=== PATIENT | female | born 1935 | race Caucasian/White ===

== ENCOUNTER → 2019-04-14 | Outpatient (CLI) | payer MEDICARE, SELFPAY | PROVIDERS: PCP Internal Medicine; Visit Provider Nurse Practitioner | DX: Z13.21 Encounter for screening for nutritional disorder (principal); I10 Essential (primary) hypertension; E78.5 Hyperlipidemia, unspecified | CPT/HCPCS: 36415; 80061; 80048; 82306 ==

== ENCOUNTER 2019-08-24 09:09 | Outpatient (CLI) | payer MEDICARE, SELFPAY ==
[2019-08-24 10:13] LABS: Alanine Aminotransferase 19 U/L (4-35); Albumin Level 4.3 g/dL (3.5-5.1); Alkaline Phosphatase 59 U/L (38-126); Aspartate Amino Transferase 30 U/L (14-36); Bilirubin,Total 0.6 mg/dL (0.2-1.3); Blood Urea Nitrogen 18 mg/dL (7-17); Calcium 10.1 mg/dL (8.4-10.2); Carbon Dioxide 28 mmol/L (22-30); Chloride 105 mmol/L (98-107); Estimated Glomerular Filt Rate 60; Glucose 95 mg/dL (65-105); Phosphorus 3.4 mg/dL (2.5-4.5); Potassium 4.6 mmol/L (3.4-5.0); Sodium 141 mmol/L (137-145)
[2019-08-24 10:23] LABS: Parathyroid Intact 76.4 pg/mL (7.5-53.5)
[2019-08-24 10:49] LABS: Free T4 Free Thyroxine 0.71 ng/mL (0.78-2.19)
[2019-08-26 03:06] LABS: Thyroid Peroxidase Antibodies <1 IU/mL (<9)
[2019-08-26 04:46] LABS: Ionized Calcium 5.6 mg/dL (4.8-5.6)
== END 2019-08-24 09:10 | disposition home or self-care (01) ==
PROVIDERS: PCP Internal Medicine; Visit Provider Internal Medicine Endocrinology, Diabetes & Metabolism
DX: E21.3 Hyperparathyroidism, unspecified (principal); E04.1 Nontoxic single thyroid nodule
CPT/HCPCS: 36415; 80053; 82330; 83970; 84100; 84439; 84443; 86376

== ENCOUNTER 2019-12-08 08:05 | Outpatient (CLI) | payer MEDICARE, SELFPAY ==
--- NOTE | ~2019-12-08 | US_ITS ---
EXAMINATION: US thyroid EXAM DATE: 12/08/2019 13:57 INDICATION: Thyroid nodule. TECHNIQUE: Multiple grayscale and Doppler images of the thyroid were obtained (by a technologist who performed the scan) and subsequently reviewed. Individual nodules and recommendations may be reporte d in accordance with TI-RADS system as designated by the 2017 ACR White Paper TI-RADS committee. Comp lawandason is made to prior examination from 05/27/2019. FINDINGS: Right thyroid lobe measures 4.1 x 1.3 x 1.2 cm, the left measuring 3.6 x 1.4 x 0.9 cm. Homogeneous th yroid echogenicity. Several tiny cystic nodules, largest in the right thyroid lobe measuring 6 mm and requiring no further follow-up. IMPRESSION: Small thyroid cystic nodules, not likely clinically significant. Return to clinical follo w-up and if palpable abnormality develops a repeat study could be obtained. Reviewed, dictated and finalized at location A. IMPRESSION: Small thyroid cystic nodules, not likely clinically significant. Re turn to clinical follow-up and if palpable abnormality develops a repeat study could be obtained.
[2019-12-08 09:03] LABS: Hemoglobin A1C 6.1 % (<5.7)
[2019-12-08 09:10] LABS: Alanine Aminotransferase 15 U/L (4-35); Albumin Level 4.2 g/dL (3.5-5.1); Alkaline Phosphatase 60 U/L (38-126); Aspartate Amino Transferase 23 U/L (14-36); Bilirubin,Total 0.5 mg/dL (0.2-1.3); Blood Urea Nitrogen 25 mg/dL (7-17); Calcium 9.9 mg/dL (8.4-10.2); Carbon Dioxide 25 mmol/L (22-30); Chloride 107 mmol/L (98-107); Estimated Glomerular Filt Rate 53; Glucose 95 mg/dL (65-105); Phosphorus 3.3 mg/dL (2.5-4.5); Potassium 4.1 mmol/L (3.4-5.0); Sodium 139 mmol/L (137-145)
[2019-12-08 09:20] LABS: Parathyroid Intact 90.4 pg/mL (7.5-53.5)
[2019-12-08 09:44] LABS: Free T4 Free Thyroxine 0.73 ng/mL (0.78-2.19)
[2019-12-11 04:52] LABS: Triiodothyronine T3 Free 2.6 pg/mL (2.3-4.2)
== END 2019-12-08 08:06 | disposition home or self-care (01) ==
LOC: ANHIMG 08:09
PROVIDERS: PCP Internal Medicine; Visit Provider Internal Medicine Endocrinology, Diabetes & Metabolism
DX: R94.6 Abnormal results of thyroid function studies (principal); R73.03 Prediabetes; E21.3 Hyperparathyroidism, unspecified; E04.1 Nontoxic single thyroid nodule
CPT/HCPCS: 36415; 76536; 80053; 83036; 83970; 84100; 84439; 84443; 84481

== ENCOUNTER 2020-04-06 07:41 | Outpatient (CLI) | payer MEDICARE, SELFPAY ==
[2020-04-06 08:23] LABS: Alanine Aminotransferase 17 U/L (4-35); Albumin Level 4.1 g/dL (3.5-5.1); Alkaline Phosphatase 65 U/L (38-126); Anion Gap 8 mmol/L (8-16); Aspartate Amino Transferase 25 U/L (14-36); Bilirubin,Total 0.6 mg/dL (0.2-1.3); Blood Urea Nitrogen 17 mg/dL (7-17); Calcium 9.9 mg/dL (8.4-10.2); Carbon Dioxide 30 mmol/L (22-30); Chloride 105 mmol/L (98-107); Cholesterol 211 mg/dL (0-200); Estimated Glomerular Filt Rate 60; Glucose 92 mg/dL (65-105); HDL Direct 51 mg/dL; Potassium 4.3 mmol/L (3.4-5.0); Sodium 143 mmol/L (137-145); Triglycerides 219 mg/dL (<150)
[2020-04-06 08:34] LABS: LDL Cholesterol Direct 106 mg/dL; Parathyroid Intact 79.1 pg/mL (7.5-53.5)
== END 2020-04-06 07:42 | disposition home or self-care (01) ==
PROVIDERS: PCP Internal Medicine; Visit Provider Nurse Practitioner
DX: E34.9 Endocrine disorder, unspecified (principal); Z78.0 Asymptomatic menopausal state; E78.5 Hyperlipidemia, unspecified
CPT/HCPCS: 36415; 80053; 80061; 83970

== ENCOUNTER 2020-05-01 09:49 | Observation (INO) | payer MEDICARE, SELFPAY ==
[2020-05-01] VITALS (13 sets, daily range): BP systolic 149–184; BP diastolic 55–83; PULSE 54–71; RESP 18–20; TEMP 35.8–36.7; O2SAT 98–100
--- NOTE | ~2020-05-01 | US_ITS ---
EXAMINATION: US carotid duplex BI DATE: 05/02/2020 11:19 INDICATION: Dizziness. TECHNIQUE: Grayscale, color Doppler, and pulsed Doppler images of the cervical carotid arteries were obtained. The degree of vessel stenosis is placed in one of the following categories: normal, <50%, 5 0-69%, >=70% but less than near-occlusion, near-occlusion, or total occlusion. Note that percent sten osis relative to normal distal artery lumen diameter is indirectly measured from velocity measurement s as described by Irving, et al. Radiology 2003; 229:340-346. COMPARISON: Neck CTA 05/01/2020 FINDINGS: RIGHT: The right common carotid artery (CCA) peak systolic velocity (PSV) is 73 cm/s. The right internal car otid artery (ICA) PSV is 93 cm/s. The right ICA end-diastolic velocity (EDV) is 22 cm/s. The right IC A/CCA PSV ratio is 1.3. Grayscale and color Doppler images yield an estimate of <50% diameter reducti on from plaque in the ICA. There is antegrade flow in the right vertebral artery. LEFT: The left CCA PSV is 74 cm/s. The left ICA PSV is 63 cm/s. The left ICA EDV is 15 cm/s. The left ICA/C CA PSV ratio is 0.9. Grayscale and color Doppler images yield an estimate of <50% diameter reduction from plaque in the ICA. There is antegrade flow in the left vertebral artery. IMPRESSION: 1. <50% stenosis in the right internal carotid artery. 2. <50% stenosis in the left internal carotid artery. Reviewed, dictated and finalized at location A.
--- NOTE | ~2020-05-01 | MR_ITS ---
EXAMINATION: MR brain/brain stem wo/w con DATE: 05/02/2020 11:19 INDICATION: Dizziness. TECHNIQUE: Magnetic resonance imaging (MRI) of the brain and brainstem was performed without and with 13 mL MultiHance intravenous contrast. Sequences included sagittal and axial T1-weighted FSE, axial diffusion-weighted FS EPI, axial T2*-weighted GRE, axial T2-weighted FLAIR Propeller, and axial T2-we ighted Propeller. Postcontrast sequences included axial and coronal T1-weighted FSE. Apparent diffusi on coefficient (ADC) maps were created. COMPARISON: Head CT 05/01/2020 FINDINGS: There is no intracranial hemorrhage, acute infarction, or abnormal intracranial mass lesion . There are scattered areas of nonspecific increased T2-weighted signal intensity in the cerebral whi te matter and anthony. The ventricles are normal in size. There is a mucous retention cyst in right maxi llary sinus. There are likely changes of ocular lens replacement surgeries. The mastoid air cells are normal. IMPRESSION: 1. Mild nonspecific cerebral white matter disease and pontine disease, which likely represents chroni c small vessel ischemic disease. Reviewed, dictated and finalized at location A. IMPRESSION: 1. Mild nonspecific cerebral white matter disease and pontine disease, which nitza banks represents chronic small vessel ischemic disease.
--- NOTE | ~2020-05-01 | CT_ITS ---
EXAMINATION: CTA BRAIN/CAROTID DATE: 05/01/2020 12:17 INDICATION: Dizziness TECHNIQUE: Computed tomographic angiography (CTA) of the head and neck was performed with 100 mL Omni paque-350 intravenous contrast. Multiplanar reconstructions and maximum intensity projection 3D-recon structions of the carotid arteries and of the intracranial arteries were created by the technologist on a separate workstation. Precontrast CT of the head was also obtained. Automated exposure control and iterative reconstruction technique were employed.The dose-length product was 1630.80 mGy-cm. COMPARISON: None. FINDINGS: Carotid arteries: There is mild atherosclerotic calcific a stent the right carotid bulb with 0% stenosis of the right c arotid bulb relative to normal distal artery lumen diameter (NASCET criteria). Centimeter there is mi nimal atherosclerotic plaque at the left carotid bulb with 0% stenosis of the left carotid bulb relat shannen to normal distal artery lumen diameter. Cervical soft tissues are unremarkable. Groundglass opaci ty in the upper lungs likely subsegmental atelectasis related to expiratory phase of imaging. Severe cervical spondylosis including 2 mm anterolisthesis C3 on C4 and C4 on C5. Head: No acute intracranial hemorrhage, acute infarction or abnormal extra axial fluid collection. There is mild to moderate scattered white matter hypoattenuation consistent with chronic small vessel ischemi c disease. Symmetric prominence of the sulci consistent with mild age-appropriate diffuse cerebral vo lume loss. Ventricles are normal and symmetric. No mass/mass effect. Prominent mucous retention cyst in the right maxillary sinus. Mild mucosal thickening in the bilateral ethmoid sinuses. Changes of bi lateral intraocular lens replacement. The orbits and mastoid air cells are normal. Intracranial arteries Right vertebral artery is dominant with small amount of nonhemodynamically significant atheroscleroti c plaque. Small amount of nonhemodynamically significant atherosclerotic plaque at the bilateral carbone tid siphons. There is no hemodynamically significant stenosis in the vertebral, basilar and internal carotid arteries. There are no aneurysms identified. Both A1 and left P1 segments are patent. The lef t A1 segment is small but there is a prominent patent anterior communicating artery. The right sealant mixer ior cerebral artery is supplied via a prominent right posterior communicating artery. There is also a patent smaller left posterior communicating artery. Cerebral arterial arborization appears symmetric . IMPRESSION: 1. Mild atherosclerotic plaque with 0% stenosis of the left and right carotid bulbs relative to bimal l distal artery lumen diameter (NASCET criteria). 2. Age-related changes in the brain including diffuse mild volume loss and mild to moderate scattered white matter hypoattenuation consistent with chronic small vessel chronic disease. No acute intracra nial process. 3. Mild nonhemodynamically significant atherosclerotic plaque at the right vertebral artery and bilat eral intracranial carotid arteries. Reviewed, dictated and finalized at location A. IMPRESSION: 1. Mild atherosclerotic plaque with 0% stenosis of the left and right carotid b ulbs relative to normal distal artery lumen diameter (NASCET criteria). 2. Age-related changes in the brain including diffuse mild volume loss and mild to moderate scattered white matter hypoattenuation consistent with chronic sma ll vessel chronic disease. No acute intracranial process. 3. Mild nonhemodynamically significant atherosclerotic plaque at the right vert ebral artery and bilateral intracranial carotid arteries.
--- NOTE | 2020-05-01 10:17 | ECG_ITS ---
Measurements Intervals [place] Rate: 64 P: -1 [place]: 128 QRS: -22 QRSD: 82 T: 12 QT: 395 QTc: 408 Interpretive Statements SINUS RHYTHM BORDERLINE R WAVE PROGRESSION, ANTERIOR LEADS BASELINE ARTIFACT- I, II, III, AVR, AVL, AVF BORDERLINE ECG Electronically Signed On 05-01-2020 10:54:40 CDT by Darryl Kemp D.O.
[2020-05-01 10:43] LABS: Basophils Percent Auto 0.6 % (0.2-1.2); Eosinophils Absolute Auto 0.2 K/mm3 (0-0.3); Eosinophils Percent Auto 4.6 % (0-4.4); Hematocrit 41.5 % (37.0-47.0); Hemoglobin 13.5 g/dL (12.0-15.0); Immature Granulocyte Absolute 0.01 K/mm3 (0.00-0.031); Immature Granulocyte Percent A 0.2 % (0-0.5); Lymphocytes Absolute Auto 1.37 K/mm3 (0.9-3.2); Lymphocytes Percent Auto 28.8 % (18.3-44.2); Mean Corpuscular HGB Conc 32.5 g/dl (32-36); Mean Corpuscular Hemoglobin 30.8 pg (26-34); Mean Corpuscular Volume 94.7 fl (80-100); Mean Platelet Volume 8.9 fl (7.4-10.4); Monocytes Absolute Auto 0.3 K/mm3 (0.1-0.6); Monocytes Percent Auto 6.1 % (2.6-8.5); Neutrophils Absolute Auto 2.8 K/mm3 (1.3-6.7); Neutrophils Percent Auto 59.7 % (45.5-73.1); Platelet Count Result 217 k/mm3 (150-375); Red Blood Count 4.38 M/mm3 (4.2-5.4); Red Cell Distribution Width 13.7 % (11.5-14.5); White Blood Count 4.8 K/mm3 (4.5-10.0)
[2020-05-01 10:56] LABS: Anion Gap 7 mmol/L (8-16); Blood Urea Nitrogen 23 mg/dL (7-17); Calcium 10.1 mg/dL (8.4-10.2); Carbon Dioxide 27 mmol/L (22-30); Chloride 107 mmol/L (98-107); Estimated Glomerular Filt Rate 60; Glucose 92 mg/dL (65-105); Potassium 4.3 mmol/L (3.4-5.0); Sodium 141 mmol/L (137-145)
[2020-05-01 11:26] LABS: Prothrombin Time 12.9 Seconds (11.1-14.7)
[2020-05-01 11:27] LABS: Partial Thromboplastin Time 27.5 SECONDS (22.3-36.8)
[2020-05-01 11:37] LABS: Troponin I < 0.012 ng/mL (0.000-0.034)
--- NOTE | 2020-05-01 11:56 | ED.DIZZY ---
HPI - Dizziness General Chief Complaint: Dizziness Stated Complaint: dizziness Time Seen by Provider: 05/01/20 11:02 Source: patient Mode of arrival: ambulatory Limitations: no limitations History of Present Illness HPI Narrative: Patient is a 84-year-old female who presents with dizziness when she woke this morning noting that she was off balance feeling like she would fall with dizziness was concerned about stroke presents for evaluation lying flat has no complaints denies similar occurrence in the past notes that she had felt fine yesterday again patient woke with the symptoms and has had difficulty ambulating secondary to the symptoms patient denies fall chest pain shortness of breath or other complaints. Related Data Allergies Allergy/AdvReac Type Severity Reaction Status Date / Time hydrocodone Allergy Mild Unknown Verified 05/01/20 10:58 Cephalosporins Allergy Unknown Unknown Verified 05/01/20 10:58 codeine Allergy Unknown Unknown Verified 05/01/20 10:58 Penicillins Allergy Unknown Unknown Verified 05/01/20 10:58 Sulfa (Sulfonamide Allergy Unknown Unknown Verified 05/01/20 10:58 Antibiotics) Review of Systems Review of Systems: All systems reviewed & are unremarkable except as noted in HPI and below PMFSH Past Medical History Medical History (Updated 05/01/20 @ 13:21 by Balbir Latif PA-C) Essential hypertension Gastro-esophageal reflux disease without esophagitis (04/03/19) Generalized anxiety disorder Takotsubo cardiomyopathy Family History Family History (Updated 02/03/16 @ 23:21 by DOCTOR UNKNOWN) Sibling Patient's brother is in good health Mother Family history of Parkinson's disease Patient's mother is Father Family history of congestive heart failure Patient's father is Other Family history of malignant neoplasm Social History Social History Smoking status: Former smoker Alcohol intake: current Exam Narrative: Exam Narrative: GENERAL: Well-appearing, well-nourished, and in no acute distress. HEAD: Normocephalic, atraumatic. EYES: PERRLA and EOMI. ENT: Nares clear, no rhinorrhea or epistaxis. Mucous membranes moist. Oropharynx without tonsillar hypertrophy exudate or other lesions. NECK: Supple. No adenopathy or masses. CHEST: Clear to auscultation. No respiratory distress. No wheezes rales or rhonchi HEART: Regular rate and rhythm. No murmur heard. Normal peripheral pulses. ABDOMEN: Soft, nontender, nondistended, normal active bowel sounds. EXTREMITIES: Normal range of motion. No edema. SKIN: Warm, dry, no rash. NEURO: No focal deficits. Alert and oriented x3. Cranial nerves II through XII grossly intact. Cerebellar intact. Normal speech. Motor and sensory intact and symmetrical in the extremities. No pronator drift. Normal [id number] and [id number] PSYCH: Normal mood and affect. Course Course Emergency Course: Patient in the room at this time symptom-free resting comfortably will be brought into the hospital for further stroke evaluation Consultations Consultation #1: Discussed case with hospitalist who is agreed to accept the patient Date: 05/01/20 Time: 13:19 Vital Signs Vital signs: Vital Signs Temperature 96.4 F L 05/01/20 09:53 Pulse Rate 66 05/01/20 09:53 Respiratory Rate 18 05/01/20 09:53 Blood Pressure 179/55 H 05/01/20 09:53 Pulse Oximetry 100 05/01/20 09:53 Temperature 96.4 F L 05/01/20 09:53 Pulse Rate 62 05/01/20 11:44 Respiratory Rate 20 05/01/20 10:57 Blood Pressure 149/73 H 05/01/20 11:44 Pulse Oximetry 98 05/01/20 10:57 MDM - Dizziness MDM Narrative Medical decision making narrative: Patient will be brought in for stroke evaluation no high risk changes in the blood work or imaging aware of case findings treatment plan diagnosis agreeing to stay in hospital. Lab Data Result diagrams: 05/01/20 10:
[2020-05-01 13:21] LABS: Add Urine Microscopic? YES; Appearance Urine Clear (Clear); Bilirubin Urine Negative (Negative); Blood Urine Negative (Negative); Color Urine Straw (Yellow); Glucose Urine UA Negative (Negative); Ketones Urine Negative (Negative); Leukocyte Esterase Ur Negative LEU/UL (Negative); Nitrate Urine Negative (Negative); Protein Urine Negative (Negative); RBC Urine 0-2 /hpf (0-2); Urobilinogen Urine Negative mg/dL (<2.0); WBC Urine 0-3 /hpf
[2020-05-01 13:22] LABS: Specific Grav Ur 1.039 (1.001-1.035)
[2020-05-01] MEDS: LACTATED RINGERS 1,000 ML 75 ML IV CONT (16:20)
[2020-05-01] MEDS: FAMOTIDINE 20 MG/2 ML VIAL IV PUSH (20:30)
--- NOTE | 2020-05-01 23:07 | PM.IMHP ---
H&P: HPI History of Present Illness Date/Time: 05/01/20 23:07 Chief complaint: Dizzy Narrative: Shefali Mojica is a 84 year old female Who has had no prior history is of any TIAs or CVAs. Patient has not tried any new medication. She has not had any fever chills. No cough. She had no chest pain or palpitations. The patient stated that when she woke up this morning she felt dizzy and she fell off her balance was off. The patient stated that she was trying to get up out of bed and just fell over. She had no difficulty speaking no facial droop. No focal weakness. Patient felt fine all day yesterday. The symptoms occurred when she woke up today. Head neck CTA was read as mild atherosclerotic plaque was 0% stenosis of the left and right carotid bulbs relative to normal distal artery lumen diameter. Age-related changes the brain including diffuse mild volume loss mild to moderate scattered white matter hypoattenuation consistent with chronic small-vessel chronic disease. No acute intracranial process. Mild non hemodynamically significant arthrosclerotic plaque at the right vertebral artery and bilateral intracranial carotid arteries. The patient does have a history of having takotsubo cardiomyopathy. At 1 point the patient had an EF noted to be 35% and impaired diastolic relaxation grade 1 back in 2017 when she had a non STEMI. Patient stated that she had she has been following with her public affairs specialist and he stated that he did not need to see her anymore she has no cardiac issues. Patient was taken off of her beta blockers at that time. She was taken off of many of her medications at that time. She does continue to take a daily aspirin. EKG was interpreted as normal rate nonspecific ST changes. Her lab work was unremarkable. The patient was started on IV fluids, Zofran and Tylenol. Patient is admitted observation medical floor date of service 05/01/2020 Review of Systems Review of Systems: All systems reviewed & are unremarkable except as noted in HPI and below Constitutional: Constitutional: Reports as per HPI and Reports no additional constitutional complaints Eyes: Eyes: Reports as per HPI and Reports no additional eye complaints ENT: Reports system reviewed and no additional complaints, except as documented and Reports Normal hearing present Cardiovascular: Cardiovascular: Reports no additional cardiovascular complaints Respiratory: Respiratory: Reports no additional respiratory complaints and Reports no additional respiratory complaints Gastrointestinal: Gastrointestinal: Reports as per HPI and Reports no additional gastrointestinal complaints Musculoskeletal: Musculoskeletal: Reports no additional musculoskeletal complaints Integumentary/Breasts: Skin/Breast: Reports system reviewed and no additional complaints, except as docu and Reports as per HPI Neurologic: Reports system reviewed and no additional complaints, except as documented, Reports as per HPI and Reports Normal hearing present Psychiatric: Psychiatric: Reports no additional psychiatric complaints and Reports as per HPI Endocrine: Endocrine: Reports no additional endocrine complaints Hematologic/Lymphatic: Hematologic/Lymphatic: Reports no additional hematologic/lymphatic complaints Allergic/Immunologic: Allergic/Immunologic: Reports no additional allergic/immunologic complaints [facility] Past Medical History Medical History (Updated 05/01/20 @ 23:16 by Luana Lange NP) Congestive heart failure in 2017 she was noted to have impaired diastolic relaxation grade 1 any ejection fraction at 36%. However the patient stated she no longer has a need for public affairs specialist. Elevated parathyroid hormone Gastro-esophageal reflux disease without esophagitis (04/03/19) Generalized anxiety disorder History of non-ST elevation myocardial infarction (NSTEMI) Hypercalcemia Lump in neck Macular degeneration on ared Plantar fasciitis of right foot Postmenopausal Takotsu
[2020-05-02] VITALS (16 sets, daily range): BP systolic 132–203; BP diastolic 53–87; PULSE 57–81; RESP 16–20; TEMP 36.3–36.7; O2SAT 94–100
[2020-05-02] MEDS: ONDANSETRON INJ 4 MG/2 ML VIAL IV PUSH (04:14)
[2020-05-02] MEDS: LACTATED RINGERS 1,000 ML 75 ML IV CONT (05:19)
--- NOTE | 2020-05-02 06:00 | ECHO_ITS ---
Patient Info Name: Shefali Mojica Age: 84 years : 1935 Gender: Female Ht: 59 in Wt: 151 lbs BSA: 1.72 m2 HR: 60 bpm BP: 152 / 58 mmHg Heart Rhythm: Sinus Rhythm Technical Quality: Good Exam Date: 05/02/2020 1:45 PM Exam Location: [facility] Patient Status: Inpatient Admit Date: 05/01/2020 Staff Ordering Physician: Balbir Latif PA-C Blanket Maker: Stanton Wilhelm RDCS Attending Provider: Norma Wylie PA-C Referring Physician: Salomon RILEY; Exam Type: CA echo doppler color flow Study Info Indications R42 - Dizziness and giddiness Complete two-dimensional, color flow and Doppler transthoracic echocardiogram is performed. Strain analysis performed. History/Risk Factors Dizzy w/ N/V post chemotherapy; HFpEF. Summary 1. Complete two-dimensional, color flow and Doppler transthoracic echocardiogram is performed. 2. There is mild concentric increased left ventricular wall thickness. 3. Left ventricular systolic function is normal, estimated at 65-70%. 4. Left atrial chamber dimension is mildly enlarged. 5. There is mild aortic valve sclerosis. 6. The mitral valve annulus is severely calcified. 7. Compared with 2017, LV systolic function has recovered. Left Ventricle Left ventricular chamber dimension is normal. Left ventricular systolic function is normal, estimated at 65-70%. There is mild concentric increased left ventricular wall thickness. The left ventricular diastolic function is grade I diastolic dysfunction. Right Ventricle Right ventricular chamber dimension is normal. Left Atria Left atrial chamber dimension is mildly enlarged. Right Atria Right atrial chamber dimension is normal. Aortic Valve The aortic valve is trileaflet. There is mild aortic valve sclerosis. Pulmonic Valve The pulmonic valve is not well visualized. Mitral Valve The mitral valve has normal leaflets. There is no mitral valve regurgitation. The mitral valve annulus is severely calcified. Tricuspid Valve The tricuspid valve leaflets are normal. Pericardium/Pleural The pericardium appears normal. Aorta The aortic root size at the sinus of Valsalva is normal. Left Ventricular Outflow Tract Name Value Normal LVOT 2D LVOT Diameter 1.9 cm LVOT Doppler LVOT Peak Gradient 6 mmHg LVOT Mean Gradient 3 mmHg LVOT VTI 28 cm LVOT VTI/AV VTI Ratio 0.7 LVOT Stroke Volume 83 ml LVOT CO 5.2 l/min LVOT CI 3.0 l/min/m2 Mitral Valve Name Value Normal MV Doppler MV Decel Black[place] 274 cm/s2 MV PHT 95 ms MV Area (PHT) 2
[2020-05-02 06:14] LABS: Basophils Percent Auto 0.7 % (0.2-1.2); Eosinophils Absolute Auto 0.2 K/mm3 (0-0.3); Eosinophils Percent Auto 4.1 % (0-4.4); Hematocrit 38.3 % (37.0-47.0); Hemoglobin 12.8 g/dL (12.0-15.0); Immature Granulocyte Absolute 0.01 K/mm3 (0.00-0.031); Immature Granulocyte Percent A 0.2 % (0-0.5); Lymphocytes Absolute Auto 1.72 K/mm3 (0.9-3.2); Lymphocytes Percent Auto 30.8 % (18.3-44.2); Mean Corpuscular HGB Conc 33.4 g/dl (32-36); Mean Corpuscular Hemoglobin 30.3 pg (26-34); Mean Corpuscular Volume 90.8 fl (80-100); Mean Platelet Volume 8.6 fl (7.4-10.4); Monocytes Absolute Auto 0.3 K/mm3 (0.1-0.6); Monocytes Percent Auto 5.7 % (2.6-8.5); Neutrophils Absolute Auto 3.3 K/mm3 (1.3-6.7); Neutrophils Percent Auto 58.5 % (45.5-73.1); Platelet Count Result 204 k/mm3 (150-375); Red Blood Count 4.22 M/mm3 (4.2-5.4); Red Cell Distribution Width 13.6 % (11.5-14.5); White Blood Count 5.6 K/mm3 (4.5-10.0)
[2020-05-02 06:22] LABS: Alanine Aminotransferase 16 U/L (4-35); Albumin Level 3.8 g/dL (3.5-5.1); Alkaline Phosphatase 61 U/L (38-126); Anion Gap 8 mmol/L (8-16); Aspartate Amino Transferase 23 U/L (14-36); Bilirubin,Total 0.7 mg/dL (0.2-1.3); Blood Urea Nitrogen 17 mg/dL (7-17); Calcium 9.6 mg/dL (8.4-10.2); Carbon Dioxide 26 mmol/L (22-30); Chloride 106 mmol/L (98-107); Estimated Glomerular Filt Rate 60; Glucose 103 mg/dL (65-105); Sodium 140 mmol/L (137-145)
[2020-05-02] MEDS: OPTI-GEN TAB 1 TABLET PO ×2 (08:31→17:18)
[2020-05-02] MEDS: FLUTICASONE PROPIONATE 0.05% NA SPR 16 GM BTL (*BKC) 1 SPRAY NASAL ×2 (08:31→17:17)
[2020-05-02] MEDS: SERTRALINE HCL 25 MG TABLET PO (08:31)
[2020-05-02] MEDS: BACLOFEN 10 MG TABLET PO ×2 (08:31→17:17)
[2020-05-02] MEDS: ASPIRIN 81 MG ENTERIC TABLET PO (08:31)
[2020-05-02] MEDS: FAMOTIDINE 20 MG/2 ML VIAL IV PUSH ×2 (08:31→20:50)
[2020-05-02] MEDS: PANTOPRAZOLE 40 MG TABLET PO (08:31)
[2020-05-02] MEDS: MULTIVITAMINS /C LUTEIN (CENTRUM SILVER) TABLET *BKC 1 TAB PO (12:18)
--- NOTE | 2020-05-02 13:58 | PM.IMPN ---
Progress Note: A&P Assessment and Plan (1) Dizziness: Code(s): R42 - Dizziness and giddiness Status: Acute Assessment and Plan: Presented with complaints of feeling off-balance. Reports it is improving but still present. She was rehydrated with IV fluids which improved symptoms. She is not orthostatic. Head/neck CTA showed age-related changes with no acute process and 0% stenosis of left and right carotid bulbs. MRI showed likely chronic small vessel ischemic disease. Carotid dopplers with <50% stenosis of bilateral ICA. CVA or TIA was considered but unlikely based on imaging. Inner ear pathology such as BPPV is considered. Echo has been ordered. Await results. IV fluids have been discontinued. Monitor orthostatics PT/OT has been ordered and recommendations are appreciated. Will trial meclizine to see if she has symptomatic improvement. (2) Generalized anxiety disorder: Code(s): F41.1 - Generalized anxiety disorder Status: Chronic Assessment and Plan: Mood is stable. Continue sertraline. (3) Congestive heart failure: Code(s): I50.9 - Heart failure, unspecified Status: Chronic Assessment and Plan: Echo from February 2017 showed EF 36% with grade I diastolic dysfunction. She appears euvolemic on exam. She is not on any beta blockers or ACEI. Repeat Echo is pending. Monitor I&O. Subjective Date/time seen: 05/02/20 13:58 Interval history: Date of service: 05/02/2020 Shefali Mojica is an 84 year old female with a history of CHF, GERD, NSTEMI, and MICKIE who is seen in follow up for dizziness. She reports that she is still feeling off-balance when she is walking and feels that she needs to hold onto something stationary for support. She also complains of left temporal headache. No photophobia or phonophobia. She has sinus congestion and drainage. She denies cough, shortness of breath, or DANIELLE. She is endorsing nausea but has not vomited. She denies visual changes, speech changes, difficulty swallowing, gait change, numbness, tingling, weakness. No abdominal pain, F/C, lightheadedness. Review of Systems Review of Systems: All systems reviewed & are unremarkable except as noted in HPI and below Exam Narrative: Exam Narrative: Ms. Mojica is a well-nourished, well-appearing 84-year-old female who is sitting in a chair by the bedside. She appears comfortable and is in NARD. HR 81, BP 165/87, RR 18, T 97.9, 99% on room air Neuro: awake, alert and oriented x4, speech clear, no focal neuro deficits noted, bilateral supervisor wrapping room strength equal, strength 5/5 throughout, able to perform rapid alternating movements and finger to nose, sensation intact, no pronator drift, gait normal HEENMT: normocephalic, atraumatic, EOMI, sclerae anicteric, moist oral mucosa, tongue midline, nares patent Neck: supple, no lymphadenopathy Respiratory: clear to auscultation bilaterally, nonlabored breathing Cardio: regular rate, regular rhythm with S1-S2 Abdomen: nondistended, normoactive bowel sounds, soft, nontender to palpation, no rigidity or guarding Extremities: no edema, erythema, cyanosis, clubbing, or tenderness to palpation, DP pulses 2+ bilaterally Skin: no rashes or lesions, warm and dry Psych: appropriate mood and affect, judgment and insight intact Objective Data Vital Signs Vital Signs: Vital Signs - 24 hr 05/01/20 13:59 05/01/20 14:30 05/01/20 15:00 Temperature Pulse Rate 54 L 56 L 54 L Respiratory Rate 20 20 20 Blood Pressure 152/83 H 173/70 H 184/75 H Pulse Oximetry 100 100 98 05/01/20 15:31 05/01/20 16:18 05/01/20 20:00 Temperature Pulse Rate 55 L 56 L 71 Respiratory Rate 20 Blood Pressure 184/75 H Pulse Oximetry 98 05/01/20 22:00 05/02/20 00:00 05/02/20 01:34 Temperature 98.1 F 97.5 F L Pulse Rate 64 67 81 Respiratory Rate 20 20 Blood Pressure 170/58 H 203/82 H Pulse Oximetry 98 98 05/02/20 01:36 05/02/20 01:37 10
[2020-05-02] MEDS: MECLIZINE HCL 12.5 MG TABLET PO ×2 (17:17→20:50)
[2020-05-03] VITALS: PULSE 60
[2020-05-03 04:00] VITALS: PULSE 53
[2020-05-03 06:00] VITALS: BP 132/61; PULSE 55; RESP 18; TEMP 36.4; O2SAT 96
[2020-05-03 06:45] LABS: Anion Gap 5 mmol/L (8-16); Blood Urea Nitrogen 21 mg/dL (7-17); Calcium 9.7 mg/dL (8.4-10.2); Carbon Dioxide 29 mmol/L (22-30); Chloride 106 mmol/L (98-107); Estimated Glomerular Filt Rate 48; Glucose 94 mg/dL (65-105); Sodium 140 mmol/L (137-145)
[2020-05-03] MEDS: MECLIZINE HCL 12.5 MG TABLET PO ×2 (09:30→13:19)
[2020-05-03] MEDS: FLUTICASONE PROPIONATE 0.05% NA SPR 16 GM BTL (*BKC) 1 SPRAY NASAL (09:30)
[2020-05-03] MEDS: OPTI-GEN TAB 1 TABLET PO (09:30)
[2020-05-03] MEDS: FAMOTIDINE 20 MG/2 ML VIAL IV PUSH (09:30)
[2020-05-03] MEDS: BACLOFEN 10 MG TABLET PO (09:30)
[2020-05-03] MEDS: SERTRALINE HCL 25 MG TABLET PO (09:30)
[2020-05-03] MEDS: MULTIVITAMINS /C LUTEIN (CENTRUM SILVER) TABLET *BKC 1 TAB PO (09:30)
[2020-05-03] MEDS: ASPIRIN 81 MG ENTERIC TABLET PO (09:31)
[2020-05-03] MEDS: PANTOPRAZOLE 40 MG TABLET PO (09:31)
--- NOTE | 2020-05-03 13:16 | PM.DS ---
DS: Admitting Diagnosis Admitting Diagnosis Admitting Diagnosis: Dizzy DS: Discharge Diagnosis Discharge Diagnosis (1) Vertigo: Code(s): R42 - Dizziness and giddiness Status: Acute Assessment and Plan: Presented with complaints of feeling off-balance, as if the room was spinning and she needed to hold on to stationary objects to steady herself. This was felt to be vertiginous in nature and inner ear pathology such as BPPV is most likely. She was rehydrated with IV fluids. She was not orthostatic. Head/neck CTA showed age-related changes with no acute process and 0% stenosis of left and right carotid bulbs. MRI showed likely chronic small vessel ischemic disease. Carotid dopplers with <50% stenosis of bilateral ICA. Echo showed improved systolic EF and mild aortic sclerosis with no significant valvular disease. Telemetry reviewed showing occasional episodes of sinus bradycardia with no arrhythmias or pauses. CVA or TIA was considered but unlikely based on imaging. Her symptoms improved and resolved entirely with addition of meclizine. She participated in PT/OT and was able to ambulate independently with no onset of symptoms. She can continue meclizine as needed for symptoms. She should follow up with her PCP. If symptoms persist, she may be a candidate for vestibular PT. (2) Generalized anxiety disorder: Code(s): F41.1 - Generalized anxiety disorder Status: Chronic Assessment and Plan: Mood remained stable. Continue sertraline. (3) Congestive heart failure: Code(s): I50.9 - Heart failure, unspecified Status: Chronic Assessment and Plan: Echo from February 2017 showed EF 36% with grade I diastolic dysfunction. She appeared euvolemic on exam. She is not on any beta blockers or ACEI. Echo was repeated on 05/02/20 which showed recovery of LV function with EF of 65-70% and grade I diastolic dysfunction. (4) Sinus bradycardia: Code(s): R00.1 - Bradycardia, unspecified Status: Acute Assessment and Plan: Telemetry reviewed which showed normal sinus rhythm with occasional episodes of sinus bradycardia in the 50s. This may have contributed to her dizziness, but this seems less likely given improvement of symptoms with meclizine. She is established with refractory worker Dr. Moreno, but was told approximately 1 year ago that she did not need to return for follow up. I encouraged her to discuss these findings with her PCP to determine if she would benefit from referral back to cardiology for further evaluation. DS: Summary Hospital Course Reason for hospitalization: Dizziness Hospital Course: Date of admission: 05/01/2020 Date of discharge: 05/03/2020 Shefali Mojica is an 84 year old female with a history of CHF, GERD, NSTEMI, and MICKIE who presented to the emergency department on 05/01/2020 with complaints of dizziness when she woke up in the morning and got out of bed. She was having difficulty walking. At presentation, BP elevated at 179/55 with additional VSS, CBC wnl, electrolytes stable, troponin <0.012, and head/neck CTA which showed mild atherosclerotic plaques with 0% stenosis of left and right carotid bulbs, age-related changes with diffuse mild volume loss, and nonhemodynamically significant atherosclerotic plaque at right vertebral artery and bilateral intracranial carotid arteries. She was admitted to the hospitalist service for further evaluation and management. Please see above for further details. Extensive workup performed as noted above. Symptoms felt to be vertiginous in nature. She had improvement with meclizine. She began feeling much better and was eager for discharge home. Given her overall improvement, she was determined to no longer require inpatient care and was felt to be stable for discharge. We discussed worrisome signs and symptoms for which to return and she was educated on her medications. She will follow up with her PCP in 1-2 weeks. She was di
== END 2020-05-03 14:40 | disposition home or self-care (01) ==
LOC: ANHED 13:38 → ANH3MEDSUR 14:38
PROVIDERS: Emergency Medicine Emergency Medical Services; Nurse Practitioner; Physician Assistant; Admitting Provider Internal Medicine; Emergency Provider Emergency Medicine; PCP Internal Medicine; Visit Provider Family Medicine
DX: R42 Dizziness and giddiness (principal); I50.9 Heart failure, unspecified; R00.1 Bradycardia, unspecified; F41.1 Generalized anxiety disorder; I51.81 Takotsubo syndrome; K21.9 Gastro-esophageal reflux disease without esophagitis; I25.2 Old myocardial infarction; H35.3190 Nonexudative age-related macular degeneration, unspecified eye, stage unspecified; G89.29 Other chronic pain; I65.23 Occlusion and stenosis of bilateral carotid arteries; Z87.891 Personal history of nicotine dependence; Z79.82 Long term (current) use of aspirin
CPT/HCPCS: 36415; 70496; 70498; 70553; 80048; 80053; 81001; 82728; 83605; 83735; 84443; 84484; 85025; 85610; 85730; 93005; 93306; 93880; 96361; 96374; 96375; 96376; 97161; 97165; 99285; A9270; A9577; G0378; J2405; J7120; Q9967

== ENCOUNTER 2020-06-07 09:07 | Outpatient (CLI) | payer MEDICARE, SELFPAY ==
--- NOTE | ~2020-06-07 | US_ITS ---
EXAMINATION: US thyroid DATE: 06/07/2020 16:01 INDICATION: Nontoxic single thyroid nodule TECHNIQUE: Multiple ultrasound images of the thyroid were obtained. COMPARISON: 12/08/2019 and 05/27/2019 FINDINGS: The right thyroid lobe measures 3.5 x 1.5 x 0.8 cm. The left thyroid lobe measures 4.1 x 1.4 x 1.2 c m. Again seen are a few anechoic cystic nodules with smooth margins and posterior acoustic enhanceme nt measuring 5 mm and 6 mm in maximal diameters in the right thyroid lobe and 3 mm in the left thyroi d lobe. There is a round 4 mm predominant solid isoechoic nodule with smooth margins and without inte rnal echogenic foci. (TI-RADS 3, mildly suspicious , FNA if >=2.5 cm, annual followup is >1.5 cm) in the left thyroid lobe. There is normal echotexture, echogenicity and vascular flow throughout the aspen rounding thyroid gland. IMPRESSION: 1. No significant interval change in a few bilateral subcentimeter thyroid nodules none meeting conse nsus criteria for follow-up for biopsy. Recommend clinical followup with repeat imaging if there are changes on physical exam. Reviewed, dictated and finalized at location A. TIONS SPECIALIST IMPRESSION: 1. No significant interval change in a few bilateral subcentimeter thyroid nodu les none meeting consensus criteria for follow-up for biopsy. Recommend clinica l followup with repeat imaging if there are changes on physical exam.
[2020-06-07 09:55] LABS: Hemoglobin A1C 5.5 % (<5.7)
[2020-06-07 09:56] LABS: Alanine Aminotransferase 17 U/L (4-35); Alkaline Phosphatase 69 U/L (38-126); Anion Gap 7 mmol/L (8-16); Aspartate Amino Transferase 27 U/L (14-36); Bilirubin,Total 0.7 mg/dL (0.2-1.3); Blood Urea Nitrogen 22 mg/dL (7-17); Calcium 10.1 mg/dL (8.4-10.2); Carbon Dioxide 31 mmol/L (22-30); Chloride 104 mmol/L (98-107); Estimated Glomerular Filt Rate 53; Glucose 90 mg/dL (65-105); Phosphorus 3.8 mg/dL (2.5-4.5); Potassium 4.4 mmol/L (3.4-5.0); Sodium 142 mmol/L (137-145)
[2020-06-07 10:07] LABS: Parathyroid Intact 78.1 pg/mL (7.5-53.5)
== END 2020-06-07 09:08 | disposition home or self-care (01) ==
PROVIDERS: PCP Internal Medicine; Visit Provider Internal Medicine Endocrinology, Diabetes & Metabolism
DX: E02 Subclinical iodine-deficiency hypothyroidism (principal); E21.3 Hyperparathyroidism, unspecified; R73.03 Prediabetes
CPT/HCPCS: 36415; 76536; 80053; 83036; 83970; 84100; 84439; 84443

== ENCOUNTER 2020-12-26 12:30 | Outpatient (RCR) | payer MEDICARE, SELFPAY ==
--- NOTE | 2020-10-24 09:26 | PTOPEVAL ---
PHYSICAL THERAPY EVALUATION AND PLAN OF CARE 10-24-20 Thank you for referring Shefali Mojica to [facility], for the diagnosis of L plantar fasciitis. She is scheduled to be seen for therapy? 2 x/week for 3 weeks. Please review, sign, date and return this plan of care BARBARA. I agree with and certify that the following plan of care is medically necessary. Referring Physician Date Attending Provider: Guy Watters DPM *PT Outpatient Evaluation Document 10/24/20 08:25 JAVIER (Rec: 10/24/20 09:26 JAVIER [id number]) Outpatient Past Medical History Past Medical History Source of Past Medical History Recalled from Previous Visit, Confirmed with Patient/Family Neurological History Hx Neurological Disorders No Significant History Cardiovascular History Hx Cardiac Catheterization Yes Hx Myocardial Infarction Yes Respiratory History Hx Respiratory Disorders No Significant History Gastrointestinal History Hx Gastroesophageal Reflux Disease Yes Genitourinary History Hx Genitourinary Disorders No Significant History Musculoskeletal History Hx Orthopedic Surgery Yes: R trigger finger surgery Hx Other Musculoskeletal Disorders Yes: L foot fracture- non surgery/boot ~ 8 yr ago,then R foot tendonitis Hematological History Hx Hematological Disorders No Significant History Endocrine History Hx Other Endocrine Disorders Yes: hyperparathyroidism- HEENT History Hx Cataracts Yes Integumentary History Hx Skin Disorders No Significant History Reproductive History Hx Hysterectomy Yes Psychosocial History Hx Psychiatric Disorders No Significant History Pain History History of Any Previous or Ongoing No Significant History Instance of Pain Anesthesia History Hx Anesthesia Reactions No Significant History Evaluation Information Problem Diagnosis L plantar fasciitis Onset Jul 2020 Subjective Information have been doing exercises for Query Text:As Reported By Patient/ foot- standing gastroc stretch Family , roller on calf muscles, tennis ball on bottom of foot and ice; pain is not getting any better; Diagnostic Tests X-Rays For This Problem No Previous Treatments Previous Treatments For This Problem no PT foot/ankle Prior Level of Function Activity Level (Last 3 Months) Occupation retired Activity of Daily Living Ability Independent Indoor/Home Mobility Independent Community Mobility Independent Stairs Ability Independent Functional Cognition (Planning, Shopping Independent , Taking Medications) Cooking
--- NOTE | 2020-11-14 10:01 | PTOPEVAL ---
PHYSICAL THERAPY RE-EVALUATION AND UPDATED PLAN OF CARE 11-14-20 Refer to the clinical summary below, for her status with today's reevaluation, compared to the initial evaluation. PT is to continue treatment 2x/week for 3 weeks. Thank you for referring Shefali Mojica to [facility].? Please review, sign, date and return this plan of care BARBARA. I agree with and certify that the following plan of care is medically necessary. Referring Physician Date Attending Provider: Guy Watters DPM Document 11/14/20 09:00 JAVIER (Rec: 11/14/20 10:01 JAVIER [id number]) Assessment Status Re-evaluation Cardiovascular History Subjective Information Shefali reports: have new New Query Text:As Reported By Patient/ Balance shoes, was up on feet Family alot yesterday and using a new insertion in shoes, have more pain today; frustrated because not getting any better , still hurting and walking bothers it; is doing the home exercises without any problems and using ice. Pain Assessment Timing of Pain Assessment Timing of Pain Assessment Assessment Pain Scale Pain Scale Used Numeric (1 - 10) Self Report Pain Assessment Left Foot/Feet Reported Pain Level 8 Pain Description Aching,Soreness Pain Frequency Continuous Other Pain Description middle/ bottom of heel and up back of heel Lowest Pain Intensity 0 Greatest Pain Intensity 8 Pain Aggravating Factors Walking,Weight Bearing/ Standing Other Pain Aggravating Factors waling tolerance 30 min in home, then have to sit down; Pain Score Pain Score 8: Self Report Additional Pain Score Comments kinesiotape over plantar fascia Y and arch of foot- bottom of foot> arch to top of foot; leukotape strip start lateral malleoli> bottom foot> medial malleoli; Interventions Used Interventions Used By Clinicians Education,Exercise Pain Relief Interventions Used By Ice,Inactivity/Rest Patient Other Alleviating Interventions ankle brace- velcro strap; roller on calf,ice bottom foot ; taking motrin Lower Extremity Range of Motion General Lower Extremity Range of Motion Gross Lower Extremity Range of Motion L ankle DF, PF, inversion and Comments eversion; toe flexion/
--- NOTE | 2020-11-28 15:19 | PCPTNOTE ---
Patient called & cancelled scheduled appointment this date. She requested to cancel and did not state why.
--- NOTE | 2020-12-06 13:21 | PTOPEVAL ---
PHYSICAL THERAPY RE-EVALUATION AND UPDATED PLAN OF CARE 12-06-20 Refer to the clinical summary for her status with today's reeval, compared to the last reeval. Continue PT 2x/week for 3 weeks, to continue to decrease her pain and increase ankle strength. Thank you for referring Shefali Mojica to [facility].? Please review, sign, date and return this plan of care BARBARA. I agree with and certify that the following plan of care is medically necessary. Referring Physician Date Attending Provider: Guy Watters DPM Document 12/06/20 12:30 JAVIER (Rec: 12/06/20 13:21 JAVIER [id number]) Assessment Status Discharge Subjective Information Shefali reports: doing better, Query Text:As Reported By Patient/ with standing and walking, Family pain with initial stand up,m then pain worse and start to limp, can make it though store about 30 minutes; worse when first wake up in the morning, can hardly make it to the bathroom; US and massage help her pain; is doing her exercises at home and wants to continue therapy. Pain Assessment Timing of Pain Assessment Timing of Pain Assessment Assessment Pain Scale Pain Scale Used Numeric (1 - 10) Self Report Pain Assessment Left Foot/Feet Reported Pain Level 0 Pain Frequency Chronic,Intermittent Other Pain Description posterior, med & lat aspects of heel and bottom of heel Lowest Pain Intensity 0 Greatest Pain Intensity 6 Pain Aggravating Factors Walking Other Pain Aggravating Factors putting wt on heel Pain Behaviors Anxious,Guarding Pain Score Pain Score 0: Self Report Additional Pain Score Comments is taking motrin 2-3 x/day for pain/inflammation Interventions Used Interventions Used By Clinicians Education Pain Relief Interventions Used By Ice,Inactivity/Rest,Medication Patient ,Sitting Other Alleviating Interventions ankle brace; had some swelling in L lateral ankle for few days, then gone Lower Extremity Range of Motion General Lower Extremity Range of Motion Gross Lower Extremity Range of Motion sitting, active ROM is WNL for Comments L toe flexion/extension, ankle DF, PF, inversion and eversion ranges; Lower Extremity Muscle Strength Testing General Lower Extremity Strength Gross Lower Extremity Strength functional strength: -standing: B PF with 1 UE hold
--- NOTE | 2020-12-26 13:08 | PTOPEVAL ---
PHYSICAL THERAPY DISCHARGE 12-26-20 Refer to the clinical summary below for her status today, compared to the last reeval. The goals were achieved, except reported walking tolerance. Thank you for referring Shefali Mojica to [facility].? Please review, sign, date and return this Discharge BARBARA. I agree with and certify that the following plan of care is medically necessary. Referring Physician Date Attending Provider: Guy Watters DPM Document 12/26/20 12:30 JAVIER (Rec: 12/26/20 13:08 JAVIER [id number]) Assessment Status Discharge Subjective Information Shefali reports: doing better Query Text:As Reported By Patient/ , pain is less and able to do Family more; doing exercises at home , use ice and wear ankle brace ; yesterday, did not wear the ankle brace and was OK without it; agreed to discharge from PT; Pain Assessment Timing of Pain Assessment Timing of Pain Assessment Assessment Pain Scale Pain Scale Used Numeric (1 - 10) Self Report Pain Assessment Left Foot/Feet Reported Pain Level 0 Pain Description Aching Pain Frequency Chronic,Intermittent Other Pain Description not sharp, sore and ache; tender at bottom of heel and posterior heel/achilles Lowest Pain Intensity 0 Greatest Pain Intensity 3 Pain Aggravating Factors Walking,Weight Bearing/ Standing Other Pain Aggravating Factors report walking tolerance 30 min with shopping; tenderness to touch bottom heel Pain Score Pain Score 0: Self Report Interventions Used Interventions Used By Clinicians Education Pain Relief Interventions Used By Ice,Inactivity/Rest Patient Other Alleviating Interventions take motrin daily; Lower Extremity Muscle Strength Testing General Lower Extremity Strength Gross Lower Extremity Strength functional strength: L LE: standing: single leg standing x 10 sec; B PF x 20 reps with 1 UE hold, full ROM R/L; single leg PF ~ 50% range on L compared to R; Gait Assessment 2 Minute Walk Total Distance Walked (feet) 450 2 Minute Walk Gait Speed Score (feet/ 3.75 second) 2 Minute Walk Test Comments slight increased pain to 2/10; good gait pattern- heel- toe pattern, without limp; Rehab Teaching Rehab Teaching Teaching Topic Rehab Teaching Topic Com
== END 2020-12-27 08:55 | disposition home or self-care (01) ==
LOC: ANHPT 12:30
PROVIDERS: PCP Internal Medicine; Visit Provider Podiatrist Foot & Ankle Surgery
DX: M72.2 Plantar fascial fibromatosis (principal)
CPT/HCPCS: 97014; 97035; 97110; 97140; 97161; G0283

== ENCOUNTER 2021-01-25 07:45 | Outpatient (CLI) | payer MEDICARE, SELFPAY ==
[2021-01-25 08:30] LABS: Alanine Aminotransferase 19 U/L (4-35); Alkaline Phosphatase 77 U/L (38-126); Anion Gap 8 mmol/L (8-16); Aspartate Amino Transferase 26 U/L (14-36); Bilirubin,Total 0.7 mg/dL (0.2-1.3); Blood Urea Nitrogen 17 mg/dL (7-17); Calcium 9.6 mg/dL (8.4-10.2); Carbon Dioxide 23 mmol/L (22-30); Chloride 111 mmol/L (98-107); Estimated Glomerular Filt Rate 53; Glucose 94 mg/dL (65-110); Phosphorus 3.3 mg/dL (2.5-4.5); Potassium 4.1 mmol/L (3.4-5.0); Sodium 142 mmol/L (137-145)
[2021-01-25 08:41] LABS: Parathyroid Intact 98.1 pg/mL (7.5-53.5)
[2021-01-25 09:25] LABS: Free T4 Free Thyroxine 0.82 ng/mL (0.78-2.19)
[2021-01-29 07:03] LABS: Triiodothyronine T3 Free 2.6 pg/mL (2.3-4.2)
== END 2021-01-25 07:46 | disposition home or self-care (01) ==
LOC: ANHLAB 07:46
PROVIDERS: PCP Internal Medicine; Visit Provider Nurse Practitioner Family
DX: E21.3 Hyperparathyroidism, unspecified (principal); E02 Subclinical iodine-deficiency hypothyroidism
CPT/HCPCS: 36415; 80053; 82330; 83970; 84100; 84439; 84443; 84481

== ENCOUNTER 2021-04-25 08:00 | Outpatient (CLI) | payer MEDICARE, SELFPAY ==
[2021-04-25 08:43] LABS: Anion Gap 7 mmol/L (8-16); Blood Urea Nitrogen 20 mg/dL (7-17); Calcium 10.1 mg/dL (8.4-10.2); Carbon Dioxide 29 mmol/L (22-30); Chloride 107 mmol/L (98-107); Cholesterol 209 mg/dL (0-200); Estimated Glomerular Filt Rate 47; Glucose 101 mg/dL (65-110); HDL Direct 54 mg/dL; Potassium 4.3 mmol/L (3.4-5.0); Sodium 143 mmol/L (137-145); Triglycerides 128 mg/dL (<150)
[2021-04-25 08:53] LABS: LDL Cholesterol Direct 111 mg/dL
== END 2021-04-25 08:01 | disposition home or self-care (01) ==
LOC: ANHLAB 08:01
PROVIDERS: PCP Internal Medicine; Visit Provider Internal Medicine
DX: E78.5 Hyperlipidemia, unspecified (principal); I10 Essential (primary) hypertension
CPT/HCPCS: 36415; 80048; 80061

== ENCOUNTER 2021-05-16 07:46 | Outpatient (CLI) | payer MEDICARE, SELFPAY ==
--- NOTE | ~2021-05-16 | US_ITS ---
EXAMINATION: US thyroid DATE: 05/16/2021 09:33 INDICATION: Multinodular goiter. TECHNIQUE: Multiple ultrasound images of the thyroid were obtained. COMPARISON: Ultrasound 06/07/2020, 05/27/2019 FINDINGS: The right thyroid lobe measures 4.1 x 1.5 x 1.6 cm. The left thyroid lobe measures 4.5 x 1.6 x 1.7 c m. In the right thyroid lobe, there is a 5 mm solid, very hypoechoic, [id number] nodule with sm ooth margin without echogenic foci (TI-RADS TR4). In the right thyroid isthmus, there is a 7 mm solid , hypoechoic, [id number]-[id number] nodule with lobulated margin without echogenic foci (TR4). There are ot her nodules measuring up to 4 mm. IMPRESSION: 1. Small thyroid nodules, likely not clinically significant. No follow-up is needed. Reviewed, dictated and finalized at location A. LE ATTACHER IMPRESSION: 1. Small thyroid nodules, likely not clinically significant. No follow-up is ne eded.
--- NOTE | ~2021-05-16 | DEXA_ITS ---
Bone Density Report Name: Shefali Moijca Age: 85 Sex: Female Ethnicity: White Date of : 1935 Indication: postmenopausal; height loss; hysterectomy; Referring Provider: Wilfredo, Cher Castro Study: Bone densitometry was performed. Exam Date: May 16, 2021 Accession number: [id number] Bone Density: Region BMD T-score Z-score Classification AP Spine (L1, L2) 1.062 0.8 3.4 Normal Femoral Neck (Left) 0.633 -1.9 0.5 Osteopenia Total Hip (Left) 0.839 -0.8 1.4 Normal Total Hip Bilateral Avg 0.820 -1.0 1.3 Osteopenia Femoral Neck (Right) 0.677 -1.5 0.9 Osteopenia Total Hip (Right) 0.801 -1.2 1.1 Osteopenia World Health Organization criteria for BMD impression classify patients as: Normal (T-score at or above -1.0), Osteopenia (T-score between -1.0 and -2.5), or Osteoporosis (T-score at or below -2.5). 10-year Fracture Risk(1): Major Osteoporotic Fracture 15% Hip Fracture 4.4% Reported Risk Factors: US (), Neck BMD=0.633, BMI=30.8 (1) FRAX(R) Version 3.08. Fracture probability calculated for an untreated patient. Fracture probability may be lower if the patient has received treatment. Previous Exams: Region Exam Age BMD T-score BMD Change BMD Change Date g/cm2 vs Baseline vs Previous AP Spine(L1, L2) 05/16/2021 85 1.062 0.8 0.006(0.5%) 0.006(0.5%) 05/07/2019 83 1.057 0.7 Total Hip(Left) 05/16/2021 85 0.839 -0.8 -0.063(-7.0%)* -0.063(-7.0%)* 05/07/2019 83 0.902 -0.3 Total Hip(Right) 05/16/2021 85 0.801 -1.2 -0.048(-5.6%)* -0.048(-5.6%)* 05/07/2019 83 0.849 -0.8 *Denotes significance at 95% confidence level, LSC for AP Spine = 0.022 g/cm2, LSC for Total Hip = 0.027 g/cm2 Clinical Information Provided by Patient: Has used the following medications: Vitamin D, Calcium Has the following medical conditions: Hysterectomy Patient maximum height was 61 Menopause Age: 47 Does not regularly consume dairy products Onset of menses at age 13 Number of children 4 Impression: The patient has low bone mass, based on the Left Femoral Neck T-score. The patient has an estimated ten-year risk of hip fracture of 4.4% and an estimated ten-year risk of major fracture of 15%, based on the WHO FRAX algorithm. The BMD for the Total Hip(Left) decreased, changing by -7.0% since the last DXA exam. The BMD for the Total Hip(Right) decreased, changing by -5.6% since the last DXA exam. Discussion: BONE DENSITY IS LOW AT ONE
[2021-05-16 10:14] LABS: Alanine Aminotransferase 17 U/L (4-35); Albumin Level 4.4 g/dL (3.5-5.1); Alkaline Phosphatase 67 U/L (38-126); Anion Gap 5 mmol/L (8-16); Aspartate Amino Transferase 26 U/L (14-36); Bilirubin,Total 0.6 mg/dL (0.2-1.3); Blood Urea Nitrogen 21 mg/dL (7-17); Calcium 10.5 mg/dL (8.4-10.2); Carbon Dioxide 27 mmol/L (22-30); Chloride 109 mmol/L (98-107); Cholesterol 216 mg/dL (0-200); Estimated Glomerular Filt Rate 53; Glucose 97 mg/dL (65-110); HDL Direct 64 mg/dL; Phosphorus 3.7 mg/dL (2.5-4.5); Potassium 4.8 mmol/L (3.4-5.0); Sodium 141 mmol/L (137-145); Triglycerides 187 mg/dL (<150)
[2021-05-16 10:25] LABS: LDL Cholesterol Direct 108 mg/dL; Parathyroid Intact 70.3 pg/mL (7.5-53.5)
[2021-05-16 10:32] LABS: Vitamin D 25 Hydroxy 66.8 ng/mL
[2021-05-16 13:10] LABS: Hemoglobin A1C 5.6 % (<5.7)
[2021-05-19 03:51] LABS: Insulin Level Total 3.7 uIU/mL (<=19.6)
[2021-05-19 06:14] LABS: Triiodothyronine T3 Free 2.8 pg/mL (2.3-4.2)
== END 2021-05-16 07:47 | disposition home or self-care (01) ==
PROVIDERS: PCP Internal Medicine; Visit Provider Internal Medicine Endocrinology, Diabetes & Metabolism
DX: M85.89 Other specified disorders of bone density and structure, multiple sites (principal); E04.2 Nontoxic multinodular goiter; R73.01 Impaired fasting glucose; E21.3 Hyperparathyroidism, unspecified; E03.9 Hypothyroidism, unspecified
CPT/HCPCS: 36415; 76536; 77080; 80053; 80061; 82306; 83036; 83525; 83970; 84100; 84439; 84443; 84481

== ENCOUNTER → 2021-06-16 04:26 | Outpatient (CLI) | payer MEDICARE, SELFPAY ==
[2021-06-16 12:40] LABS: Influenza Control Positive
[2021-06-16 19:26] LABS: SARS-CoV-2 RNA PCR Negative
== END ==
PROVIDERS: PCP Internal Medicine; Visit Provider Internal Medicine
DX: R68.89 Other general symptoms and signs (principal); Z20.822 Contact with and (suspected) exposure to COVID-19
CPT/HCPCS: 87804; C9803; U0003; U0005

== ENCOUNTER 2021-10-30 08:07 | Outpatient (CLI) | payer MEDICARE, SELFPAY ==
[2021-10-30 09:10] LABS: Alanine Aminotransferase 15 U/L (4-35); Albumin Level 4.3 g/dL (3.5-5.1); Alkaline Phosphatase 53 U/L (38-126); Anion Gap 6 mmol/L (8-16); Aspartate Amino Transferase 27 U/L (14-36); Bilirubin,Total 0.5 mg/dL (0.2-1.3); Blood Urea Nitrogen 22 mg/dL (7-17); Calcium 9.9 mg/dL (8.4-10.2); Carbon Dioxide 26 mmol/L (22-30); Chloride 108 mmol/L (98-107); Cholesterol 196 mg/dL (0-200); Estimated Glomerular Filt Rate 60; Glucose 93 mg/dL (65-110); HDL Direct 52 mg/dL; Potassium 4.1 mmol/L (3.4-5.0); Sodium 140 mmol/L (137-145); Triglycerides 185 mg/dL (<150)
[2021-10-30 09:21] LABS: LDL Cholesterol Direct 78 mg/dL
[2021-11-10 14:31] LABS: Parathyroid Hormone Related Pr 13 pg/mL (11-20)
== END 2021-10-30 08:08 | disposition home or self-care (01) ==
PROVIDERS: PCP Internal Medicine; Visit Provider Nurse Practitioner
DX: E78.5 Hyperlipidemia, unspecified (principal); E34.9 Endocrine disorder, unspecified
CPT/HCPCS: 36415; 80053; 80061; 83519

== ENCOUNTER 2021-11-15 14:06 | Outpatient (CLI) | payer MEDICARE, SELFPAY ==
--- NOTE | ~2021-11-15 | CT_ITS ---
EXAMINATION: CT abdomen pelvis wo con DATE: 11/15/2021 14:26 INDICATION: Right-sided abdominal pain TECHNIQUE: Computed tomography (CT) of the abdomen and pelvis was performed without intravenous contr ast. The dose-length product (DLP) was 492.50 mGy-cm. Automated exposure control and iterative recons truction technique were employed. COMPARISON: 02/21/2015 FINDINGS: There is mild atelectasis of the visualized lung bases. Cardiomegaly is noted. There is tre cification of the mitral annulus. The liver, pancreas, and adrenal glands are normal. Punctate calcif ications in an otherwise normal spleen likely represent healed granulomatous disease. Stones are pres ent in the nondistended gallbladder. There is calcified atherosclerosis of the aorta and many of the other arteries. No pathologically enlarged abdominal or pelvic lymph nodes are identified. There is n o free intraperitoneal gas or evidence of bowel obstruction. Colonic diverticulosis is present withou t evidence of diverticulitis. There is a moderate-sized fat-containing umbilical hernia. There is sev ere lower thoracic and lumbar spondylosis. IMPRESSION: 1. Moderate-sized umbilical hernia containing fat. 2. Diverticulosis without evidence of diverticulitis. 3. Cholelithiasis without evidence of cholecystitis. Reviewed, dictated and finalized at location A.
== END 2021-11-15 14:07 | disposition home or self-care (01) ==
PROVIDERS: PCP Internal Medicine; Visit Provider Internal Medicine
DX: R10.9 Unspecified abdominal pain (principal); K42.9 Umbilical hernia without obstruction or gangrene; K57.90 Diverticulosis of intestine, part unspecified, without perforation or abscess without bleeding; K80.20 Calculus of gallbladder without cholecystitis without obstruction
CPT/HCPCS: 74176

== ENCOUNTER 2021-12-14 08:14 | Outpatient (CLI) | payer MEDICARE, SELFPAY ==
[2021-12-14 09:08] LABS: Alanine Aminotransferase 17 U/L (6-35); Alkaline Phosphatase 58 U/L (38-126); Anion Gap 6 mmol/L (8-16); Aspartate Amino Transferase 25 U/L (14-36); Bilirubin,Total 0.6 mg/dL (0.2-1.3); Blood Urea Nitrogen 22 mg/dL (7-17); Calcium 9.6 mg/dL (8.4-10.2); Carbon Dioxide 28 mmol/L (22-30); Chloride 108 mmol/L (98-107); Estimated Glomerular Filt Rate 53; Glucose 96 mg/dL (65-110); Phosphorus 3.8 mg/dL (2.5-4.5); Potassium 4.3 mmol/L (3.4-5.0); Sodium 142 mmol/L (137-145)
[2021-12-14 09:19] LABS: Parathyroid Intact 87.8 pg/mL (7.5-53.5)
[2021-12-14 09:59] LABS: Free T4 Free Thyroxine 0.88 ng/mL (0.78-2.19); Vitamin D 25 Hydroxy 70.3 ng/mL
[2021-12-14 11:43] LABS: Hemoglobin A1C 5.8 % (<5.7)
[2021-12-17 04:05] LABS: Ionized Calcium 5.3 mg/dL (4.8-5.6)
[2021-12-17 05:25] LABS: Triiodothyronine T3 Free 2.6 pg/mL (2.3-4.2)
== END 2021-12-14 08:15 | disposition home or self-care (01) ==
LOC: ANHLAB 08:19
PROVIDERS: PCP Internal Medicine; Visit Provider Internal Medicine Endocrinology, Diabetes & Metabolism
DX: R73.03 Prediabetes (principal); E21.3 Hyperparathyroidism, unspecified; E02 Subclinical iodine-deficiency hypothyroidism
CPT/HCPCS: 36415; 80053; 82306; 82330; 83036; 83970; 84100; 84439; 84443; 84481

== ENCOUNTER 2022-04-23 08:26 | Outpatient (CLI) | payer MEDICARE, SELFPAY ==
[2022-04-23 08:59] LABS: Alanine Aminotransferase 20 U/L (6-35); Albumin Level 4.3 g/dL (3.5-5.1); Alkaline Phosphatase 63 U/L (38-126); Anion Gap 4 mmol/L (8-16); Aspartate Amino Transferase 27 U/L (14-36); Bilirubin,Total 0.7 mg/dL (0.2-1.3); Blood Urea Nitrogen 21 mg/dL (7-17); Carbon Dioxide 29 mmol/L (22-30); Chloride 107 mmol/L (98-107); Cholesterol 195 mg/dL (0-200); Estimated Glomerular Filt Rate 47; Glucose 93 mg/dL (65-110); HDL Direct 59 mg/dL; Potassium 4.2 mmol/L (3.4-5.0); Sodium 140 mmol/L (137-145); Triglycerides 143 mg/dL (<150)
[2022-04-23 09:11] LABS: LDL Cholesterol Direct 90 mg/dL
== END 2022-04-23 08:27 | disposition home or self-care (01) ==
PROVIDERS: PCP Internal Medicine; Visit Provider Internal Medicine
DX: E78.5 Hyperlipidemia, unspecified (principal); I50.9 Heart failure, unspecified; Z78.0 Asymptomatic menopausal state
CPT/HCPCS: 36415; 80053; 80061

== ENCOUNTER 2022-08-20 08:09 | Outpatient (CLI) | payer MEDICARE, SELFPAY ==
[2022-08-20 08:36] LABS: Basophils Absolute Auto 0.1 K/mm3 (0.0-0.1); Eosinophils Absolute Auto 0.3 K/mm3 (0-0.3); Eosinophils Percent Auto 5.2 % (0-4.4); Hematocrit 40.2 % (37.0-47.0); Hemoglobin 13.3 g/dL (12.0-15.0); Immature Granulocyte Absolute 0.02 K/mm3 (0.00-0.031); Immature Granulocyte Percent A 0.4 % (0-0.5); Lymphocytes Absolute Auto 1.64 K/mm3 (0.9-3.2); Lymphocytes Percent Auto 31.4 % (18.3-44.2); Mean Corpuscular HGB Conc 33.1 g/dl (32-36); Mean Corpuscular Hemoglobin 31.5 pg (26-34); Mean Corpuscular Volume 95.3 fl (80-100); Mean Platelet Volume 9.6 fl (7.4-10.4); Monocytes Absolute Auto 0.4 K/mm3 (0.1-0.6); Monocytes Percent Auto 7.3 % (2.6-8.5); Neutrophils Absolute Auto 2.9 K/mm3 (1.3-6.7); Neutrophils Percent Auto 54.7 % (45.5-73.1); Platelet Count Result 197 k/mm3 (150-375); Red Blood Count 4.22 M/mm3 (4.2-5.4); White Blood Count 5.2 K/mm3 (4.5-10.0)
[2022-08-20 08:36] LABS: Appearance Urine Clear (Clear); Bilirubin Urine Negative (Negative); Blood Urine Negative (Negative); Color Urine Yellow (Yellow); Glucose Urine UA Negative (Negative); Ketones Urine Negative (Negative); Leukocyte Esterase Ur Negative LEU/UL (NEGATIVE); Nitrate Urine Negative (Negative); Protein Urine Negative (Negative); Urobilinogen Urine 0.2 mg/dL (<2.0); pH Urine 6.5 (5.0-9.0)
[2022-08-20 08:40] LABS: RBC Urine 0-2 /hpf (0-2); WBC Urine 0-3 /hpf (0-3)
[2022-08-20 08:42] LABS: Add Urine Microscopic? YES
[2022-08-20 08:46] LABS: Alanine Aminotransferase 21 U/L (6-35); Albumin Level 4.5 g/dL (3.5-5.1); Alkaline Phosphatase 62 U/L (38-126); Anion Gap 6 mmol/L (8-16); Aspartate Amino Transferase 27 U/L (14-36); Bilirubin,Total 0.8 mg/dL (0.2-1.3); Blood Urea Nitrogen 21 mg/dL (7-17); Calcium 9.3 mg/dL (8.4-10.2); Carbon Dioxide 27 mmol/L (22-30); Chloride 108 mmol/L (98-107); Estimated Glomerular Filt Rate 43; Glucose 93 mg/dL (65-110); Potassium 4.2 mmol/L (3.4-5.0); Sodium 141 mmol/L (137-145)
== END 2022-08-20 08:10 | disposition home or self-care (01) ==
LOC: ANHLAB 08:11
PROVIDERS: PCP Internal Medicine; Visit Provider Nurse Practitioner Family
DX: R10.9 Unspecified abdominal pain (principal)
CPT/HCPCS: 36415; 80053; 81001; 85025

== ENCOUNTER 2022-08-22 09:26 | Outpatient (CLI) | payer MEDICARE, SELFPAY ==
--- NOTE | ~2022-08-22 | US_ITS ---
EXAMINATION: US abdomen complete DATE: 08/22/2022 10:11 INDICATION: Right lower quadrant pain TECHNIQUE: Multiple grayscale and Doppler ultrasound images of the abdomen were obtained. COMPARISON: CT, 11/15/2021 FINDINGS: The head and body of the pancreas are normal. The pancreatic tail is obscured by bowel gas. The liver is normal with normal echogenicity and echotexture. No surface nodularity. Normal hepatope randal flow in the main portal vein. Stones or debris are present in the nondistended gallbladder. There is no gallbladder wall thickening or pericholecystic fluid. The normal common bile duct measures 4 m m. There was no sonographic Grayson sign. The visualized portions of the aorta and inferior vena cava are normal. The spleen is normal in appearance and measures 8.2 cm. The right kidney measures 9.3 x 4.8 x 3.7 cm. The left kidney measures 8.9 x 4.1 x 3.9 cm. The kidneys demonstrate normal parenchymal echogenicity . There is no hydronephrosis. IMPRESSION: 1. Stones or debris in the nondistended gallbladder. No correlate for right lower quadrant pain. Reviewed, dictated and finalized at location B. ITY CONTROL SCIENTIST IMPRESSION: 1. Stones or debris in the nondistended gallbladder. No correlate for right low er quadrant pain.
== END 2022-08-22 09:27 | disposition home or self-care (01) ==
PROVIDERS: PCP Internal Medicine; Visit Provider Nurse Practitioner Family
DX: K80.20 Calculus of gallbladder without cholecystitis without obstruction (principal)
CPT/HCPCS: 76700

== ENCOUNTER 2022-08-31 14:40 | Outpatient (CLI) | payer MEDICARE, SELFPAY ==
--- NOTE | ~2022-08-31 | CT_ITS ---
EXAMINATION: CT abdomen pelvis w con DATE: 08/31/2022 15:02 INDICATION: Right lower quadrant abdominal pain. TECHNIQUE: Computed tomography (CT) of the abdomen and pelvis was performed with 100 mL Omnipaque 350 intravenous contrast. Automated exposure control and iterative reconstruction technique were employe d. The dose-length product was 586.34 mGy-cm. COMPARISON: CT abdomen and pelvis 11/15/2021 FINDINGS: The visualized portions of the lung bases demonstrated mild atelectasis. No pleural effusio n. The heart size is normal. No pericardial effusion. The liver, spleen, and pancreas are normal. The re are gallstones in the gallbladder, which is normal in size. The adrenal glands are normal. There i s a 4 mm cyst in right kidney. Left kidney is normal. There is diverticulosis of the colon without ev idence of diverticulitis. The appendix is not visualized. There is an umbilical hernia containing fat . There is a 4.0 cm cyst in right ovary. There is severe thoracic and lumbar spondylosis. IMPRESSION: 1. Umbilical hernia containing fat. 2. 4.0 cm cyst in right ovary, which measured 3.6 cm on 11/15/21, likely benign. Pelvis ultrasound is recommended in one year. Reviewed, dictated and finalized at location A. NKLER IRRIGATION EQUIPMENT MECHANIC
== END 2022-08-31 14:41 | disposition home or self-care (01) ==
PROVIDERS: PCP Internal Medicine; Visit Provider Nurse Practitioner Family
DX: K42.9 Umbilical hernia without obstruction or gangrene (principal); N83.201 Unspecified ovarian cyst, right side
CPT/HCPCS: 74177; Q9967

== ENCOUNTER 2022-09-04 08:51 | Outpatient (CLI) | payer MEDICARE, SELFPAY ==
[2022-09-07 04:10] LABS: CA-125 5 U/mL (<35)
== END 2022-09-04 08:52 | disposition home or self-care (01) ==
PROVIDERS: PCP Internal Medicine; Visit Provider Nurse Practitioner Family
DX: R97.1 Elevated cancer antigen 125 [CA 125] (principal); N83.209 Unspecified ovarian cyst, unspecified side
CPT/HCPCS: 36415; 86304

== ENCOUNTER 2022-09-10 10:11 | Outpatient (CLI) | payer MEDICARE, SELFPAY ==
--- NOTE | ~2022-09-10 | US_ITS ---
EXAMINATION: US pelvic complete DATE: 09/10/2022 10:40 INDICATION: N83.209 - Unspecified ovarian cyst, unspecified side TECHNIQUE: Multiple transabdominal and endovaginal sonographic images of the pelvis were obtained. COMPARISON: CT abdomen and pelvis 08/31/2022 FINDINGS: Uterus: Uterus surgically absent. Right Ovary: 4.4 x 4.2 x 2.8 cm. Vascular flow is present. 3.5 cm simple appearing right ovarian cyst . Left Ovary: Not visualized. There is no free fluid in the pelvis. IMPRESSION: 3.5 cm likely benign right ovarian cyst, pelvis ultrasound recommended in one year. Left ovary not vi sualized. Reviewed, dictated and finalized at location K. CTOR OF PRIMARY IMPRESSION: 3.5 cm likely benign right ovarian cyst, pelvis ultrasound recommended in one y ear. Left ovary not visualized.
== END 2022-09-10 10:12 | disposition home or self-care (01) ==
PROVIDERS: PCP Internal Medicine; Visit Provider Nurse Practitioner Family
DX: N83.201 Unspecified ovarian cyst, right side (principal)
CPT/HCPCS: 76856

== ENCOUNTER 2022-10-17 07:54 | Outpatient (CLI) | payer MEDICARE, SELFPAY ==
[2022-10-17 08:54] LABS: Alanine Aminotransferase 21 U/L (6-35); Albumin Level 4.2 g/dL (3.5-5.1); Alkaline Phosphatase 58 U/L (38-126); Anion Gap 4 mmol/L (8-16); Aspartate Amino Transferase 27 U/L (14-36); Bilirubin,Total 0.7 mg/dL (0.2-1.3); Blood Urea Nitrogen 20 mg/dL (7-17); Calcium 9.6 mg/dL (8.4-10.2); Carbon Dioxide 30 mmol/L (22-30); Chloride 107 mmol/L (98-107); Estimated Glomerular Filt Rate 53; Glucose 100 mg/dL (65-110); Phosphorus 3.6 mg/dL (2.5-4.5); Potassium 4.1 mmol/L (3.4-5.0); Sodium 141 mmol/L (137-145)
[2022-10-17 09:19] LABS: Hemoglobin A1C 5.8 % (<5.7)
[2022-10-17 09:23] LABS: Free T4 Free Thyroxine 0.99 ng/mL (0.78-2.19); Vitamin D 25 Hydroxy 67.9 ng/mL
[2022-10-19 19:29] LABS: Ionized Calcium 5.2 mg/dL (4.7-5.5)
== END 2022-10-17 07:55 | disposition home or self-care (01) ==
PROVIDERS: PCP Internal Medicine; Visit Provider Internal Medicine Endocrinology, Diabetes & Metabolism
DX: R73.03 Prediabetes (principal); E21.3 Hyperparathyroidism, unspecified
CPT/HCPCS: 36415; 80053; 82306; 82330; 83036; 83970; 84100; 84439; 84443

== ENCOUNTER 2022-11-15 08:50 | Outpatient (CLI) | payer MEDICARE, SELFPAY ==
[2022-11-15 09:51] LABS: Alanine Aminotransferase 24 U/L (6-35); Albumin Level 4.2 g/dL (3.5-5.1); Alkaline Phosphatase 55 U/L (38-126); Anion Gap 8 mmol/L (8-16); Aspartate Amino Transferase 31 U/L (14-36); Bilirubin,Total 0.8 mg/dL (0.2-1.3); Blood Urea Nitrogen 22 mg/dL (7-17); Calcium 9.5 mg/dL (8.4-10.2); Carbon Dioxide 27 mmol/L (22-30); Chloride 107 mmol/L (98-107); Cholesterol 193 mg/dL (0-200); Estimated Glomerular Filt Rate > 60; Glucose 88 mg/dL (65-110); HDL Direct 61 mg/dL; Potassium 4.2 mmol/L (3.4-5.0); Sodium 142 mmol/L (137-145); Triglycerides 101 mg/dL (<150)
[2022-11-15 10:02] LABS: LDL Cholesterol Direct 94 mg/dL
[2022-11-15 10:38] LABS: Vitamin D 25 Hydroxy 73.8 ng/mL
== END 2022-11-15 08:51 | disposition home or self-care (01) ==
LOC: ANHLAB 08:53
PROVIDERS: PCP Family Medicine; Visit Provider Nurse Practitioner Family
DX: E78.5 Hyperlipidemia, unspecified (principal); I50.9 Heart failure, unspecified; Z78.0 Asymptomatic menopausal state; Z79.899 Other long term (current) drug therapy
CPT/HCPCS: 36415; 80053; 80061; 82306

== ENCOUNTER 2023-05-14 08:29 | Outpatient (CLI) | payer MEDICARE, SELFPAY ==
[2023-05-14 09:13] LABS: Hematocrit 38.7 % (37.0-47.0); Hemoglobin 12.2 g/dL (12.0-15.0); Mean Corpuscular HGB Conc 31.5 g/dl (32-36); Mean Corpuscular Hemoglobin 30.4 pg (26-34); Mean Corpuscular Volume 96.5 fl (80-100); Mean Platelet Volume 9.3 fl (7.4-10.4); Platelet Count Result 200 k/mm3 (150-375); Red Blood Count 4.01 M/mm3 (4.2-5.4); Red Cell Distribution Width 14.6 % (11.5-14.5); White Blood Count 5.1 K/mm3 (4.5-10.0)
[2023-05-14 09:28] LABS: Alanine Aminotransferase 20 U/L (6-35); Albumin Level 4.1 g/dL (3.5-5.1); Alkaline Phosphatase 57 U/L (38-126); Anion Gap 4 mmol/L (8-16); Aspartate Amino Transferase 25 U/L (14-36); Bilirubin,Total 0.8 mg/dL (0.2-1.3); Blood Urea Nitrogen 23 mg/dL (7-17); Calcium 9.8 mg/dL (8.4-10.2); Carbon Dioxide 29 mmol/L (22-30); Chloride 106 mmol/L (98-107); Cholesterol 191 mg/dL (0-200); Estimated Glomerular Filt Rate 47; Glucose 90 mg/dL (65-110); HDL Direct 61 mg/dL; Sodium 139 mmol/L (137-145); Triglycerides 125 mg/dL (<150)
[2023-05-14 09:39] LABS: LDL Cholesterol Direct 92 mg/dL
[2023-05-14 11:16] LABS: Hemoglobin A1C 5.6 % (<5.7)
== END 2023-05-14 08:30 | disposition home or self-care (01) ==
PROVIDERS: PCP Family Medicine; Visit Provider Family Medicine
DX: E78.5 Hyperlipidemia, unspecified (principal); E34.9 Endocrine disorder, unspecified; E66.3 Overweight; F41.1 Generalized anxiety disorder; G89.29 Other chronic pain; H35.30 Unspecified macular degeneration; I50.9 Heart failure, unspecified; R42 Dizziness and giddiness; Z79.899 Other long term (current) drug therapy
CPT/HCPCS: 36415; 80053; 80061; 83036; 85027

== ENCOUNTER 2023-05-29 08:28 | Emergency (ER) | payer MEDICARE, SELFPAY ==
--- NOTE | ~2023-05-29 | XR_ITS ---
EXAMINATION: XR chest 2V DATE: 05/29/2023 09:16 INDICATION: Cough TECHNIQUE: PA and lateral views of the chest are obtained. COMPARISON: 02/09/2017 FINDINGS: The lungs are free of acute opacities. No pleural effusion or pneumothorax. The cardiomedia stinal silhouette is normal. There is moderate thoracic spondylosis. IMPRESSION: 1. No acute cardiopulmonary abnormality. Reviewed, dictated and finalized at location F. HOLDER
[2023-05-29 08:38] VITALS: BP 154/70; PULSE 72; RESP 20; TEMP 36.2; O2SAT 99
--- NOTE | 2023-05-29 08:52 | ED.URI ---
HPI - URI/Sore Throat General Chief Complaint: Upper Respiratory Infection Stated Complaint: Congestion,Cough,Shortness of Breath Time Seen by Provider: 05/29/23 08:52 Source: patient Mode of arrival: ambulatory Limitations: no limitations History of Present Illness HPI Narrative: 87-year-old female presents today with complaint of cough for 5 days. Reports nasal and chest congestion. Not taking any rqnc-jdp-gjzezzh medications to treat her symptoms. Reports that symptoms are getting worse. Feels like she cannot take a deep breath. Denies nausea vomiting diarrhea. No chest pain. All systems reviewed and negative except as noted above. Related Data Home Medications Medication Instructions Recorded Confirmed Lactobacills gasseri-Bifidobac 1 cap PO DAILY 05/01/20 05/29/23 bifidum,longum 1.5 billion cell capsule ([employer]) aspirin 81 mg tablet,delayed 81 mg PO DAILY 05/01/20 05/29/23 release calcium-vitamin D3-vitamin K 500 1 tablet PO BID 05/01/20 05/29/23 mg-100 unit-40 mcg chewable tablet cranberry 400 mg capsule 400 mg PO DAILY 05/01/20 05/29/23 glucosamine sulf dipot 2 cap PO BID 05/01/20 05/29/23 chlr,msm,chond 550 mg-C 30 mg-genevieve 1 mg capsule (Glucosamine Chondroitin) kmfwmxvb-ktd-hctqr acid 0.4 1 tablet PO DAILY 05/01/20 05/29/23 mg-lycopene 300 mcg-lutein 250 mcg tablet (Centrum Silver) vit C 250 mg-vit E 90 mg-zinc 40 1 tablet PO BID 05/01/20 05/29/23 mg-copper 1 re-ulstbj-zttwga capsule (PreserVision AREDS-2) famotidine 20 mg tablet (Pepcid AC) 20 mg PO DAILY PRN Gastric Reflux 11/28/22 05/29/23 Allergies Allergy/AdvReac Type Severity Reaction Status Date / Time Sulfa (Sulfonamide Allergy Severe Anaphylaxis Verified 05/29/23 09:18 Antibiotics) Cephalosporins AdvReac Mild Hives Verified 05/29/23 09:18 codeine AdvReac Mild Hives Verified 05/29/23 09:18 hydrocodone AdvReac Mild Hives Verified 05/29/23 09:18 Penicillins AdvReac Mild Hives Verified 05/29/23 09:18 Review of Systems Review of Systems: CONSTITUTIONAL: Denies fever, chills, or sweats. reports fatigue. EYES: Denies visual changes, redness, or discharge. ENT: Reports rhinorrhea, congestion. Denies sore throat, or otalgia. CARDIOVASCULAR: Denies chest pain, palpitations, or edema. RESPIRATORY: Reports cough. Denies dyspnea. GASTROINTESTINAL: Denies abdominal pain, nausea, vomiting, or diarrhea. GENITOURINARY: Denies dysuria or hematuria. SKIN: Denies rash or itching. MUSCULOSKELETAL: Denies back pain, joint pain, or myalgia. NEUROLOGIC: Denies headache, numbness, or weakness. PSYCHIATRIC: Denies anxiety or depression. All other systems reviewed are negative, except as documented in HPI. [facility] Past Medical History Medical History (Updated 05/29/23 @ 09:32 by Myrna Pavon NP) Congestive heart failure in 2017 she was noted to have impaired diastolic relaxation grade 1 any ejection fraction at 36%. 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 Elevated parathyroid hormone Gastro-esophageal reflux disease without esophagitis (04/03/19) Generalized anxiety disorder History of non-ST elevation myocardial infarction (NSTEMI) Hypercalcemia Lump in neck Macular degeneration on ared Plantar fasciitis of right foot Postmenopausal Takotsubo cardiomyopathy Thumb pain Trigger finger Surgical History Surgical History (Updated 08/16/22 @ 13:14 by Jodi Nguyen APRN) Cataract extraction status H/O cardiac catheterization H/O: hysterectomy Hx of appendectomy Family History Family History Sibling Patient's brother is in good health 1 brother is healthy but the other brother from lung cancer Lung cancer 1 brother is healthy and the other brother from lung cancer Mother Family history of Parkinson's disease Patient's mother is Father Family
== END 2023-05-29 09:35 | disposition home or self-care (01) ==
PROVIDERS: Emergency Provider Nurse Practitioner Family; PCP Family Medicine
DX: J06.9 Acute upper respiratory infection, unspecified (principal); Z20.822 Contact with and (suspected) exposure to COVID-19; Z87.891 Personal history of nicotine dependence; K21.9 Gastro-esophageal reflux disease without esophagitis; I50.9 Heart failure, unspecified; I25.2 Old myocardial infarction; Z79.82 Long term (current) use of aspirin
CPT/HCPCS: 71046; 87426; 99213; C9803; G0463

== ENCOUNTER 2023-09-06 12:35 | Outpatient (CLI) | payer MEDICARE, SELFPAY ==
--- NOTE | ~2023-09-06 | US_ITS ---
EXAMINATION: US pelvic complete DATE: 09/06/2023 13:30 INDICATION: Unspecified ovarian cyst, right side. TECHNIQUE: Multiple transabdominal sonographic images of the pelvis were obtained. COMPARISON: Ultrasound pelvis 09/10/22, CT abdomen and pelvis 08/31/2022 FINDINGS: The uterus is absent. The right ovary measures 5.1 x 2.7 x 3.7 cm. There is a 4.6 cm cyst in the righ t ovary. There is normal vascular flow in the right ovary. Left ovary is not visualized. There is no free fluid in the pelvis. IMPRESSION: 1. 4.6 cm cyst in the right ovary, likely benign. Pelvis ultrasound is recommended in one year. Reviewed, dictated and finalized at location A. OROLOGICAL EQUIPMENT REPAIRER IMPRESSION: 1. 4.6 cm cyst in the right ovary, likely benign. Pelvis ultrasound is recommen ded in one year.
--- NOTE | ~2023-09-06 | XR_ITS ---
EXAMINATION: XR shoulder RT min 2V DATE: 09/06/2023 13:01 INDICATION: Chronic right shoulder pain. TECHNIQUE: 4 views of right shoulder were obtained. COMPARISON: None. FINDINGS: Bone alignment is normal. No fracture. There is mild osteoarthritis of glenohumeral joint a nd moderate osteoarthritis of acromioclavicular joint. IMPRESSION: 1. Polyarticular osteoarthritis. Reviewed, dictated and finalized at location A. HANGER
== END 2023-09-06 12:36 | disposition home or self-care (01) ==
LOC: ANHIMG 12:45
PROVIDERS: PCP Family Medicine; Visit Provider Family Medicine
DX: M25.511 Pain in right shoulder (principal); R42 Dizziness and giddiness; I50.9 Heart failure, unspecified; H35.30 Unspecified macular degeneration; R00.1 Bradycardia, unspecified; E34.9 Endocrine disorder, unspecified; I10 Essential (primary) hypertension; N83.201 Unspecified ovarian cyst, right side; M19.011 Primary osteoarthritis, right shoulder
CPT/HCPCS: 73030; 76856

== ENCOUNTER 2023-10-14 09:15 | Outpatient (RCR) | payer MEDICARE, SELFPAY ==
[2023-09-05 14:20] VITALS: BP_SYST 155
--- NOTE | 2023-09-05 15:14 | OPREHPOC ---
Outpatient Therapy Plan of Care This is a Multidisciplinary Plan of Care that may contain components documented by all disciplines (PT, OT, and ST.) PT Problem 1 PT Problem #1 Knowledge Deficit PT Goal 1 Goal 1* indep with HEP 2* correct shoulder position with exercises PT Problem 2 PT Problem #2 Pain PT Goal 1 Goal 1* pt report pain rating of 4/10 at worst 2* self assessment Quick DASH score of 10% limitation in activity level PT Problem 3 PT Problem #3 Impaired Strength PT Goal 1 Goal increase strength of R shoulder to improve use of arm with tasks: 1* pull up pants without issues 2* driving without any problems 3* standing shoulder flexion to 145' x 5 reps 4* standing shoulder abduction to 130' x 5 reps
--- NOTE | 2023-09-05 15:14 | PTOPEVAL1 ---
Assessment and note entered by Emily Stuart, PT Evaluation Information Assessment Status Evaluation Diagnosis R shoulder pain Onset Mar 2023 Subjective Information gradual increase in shoulder pain, without an injury or trauma to shoulder--more issues with driving and turning steering wheel, pulling up pants, picking up something off floor; is R hand dominant; had injection from dr-helped ease the pain; to get xray of shoulder tomorrow. Activity: prior to shoulder pain, indep with all home and work tasks; home with ; Reported Pain Level Pain Score Self Report Additional Pain Score Comments pain range 0-8/10; anterior GH joint and mid anterior humerus- ache, sometimes sharp pain increase: driving, lifting, pulling up pants decrease: not use arm, tylenol 2x/day is not using heat or ice--instruct on PRN use. sleep is OK; Assessment PT Clinical Summary Shefali has the diagnosis of R shoulder pain, with gradual increase in pain. Her activity is limited with use of her dominant arm for pulling up her pants, lifting activities. Quick DASH self assessment rating of 18% limitation in activity level. The injection has helped to decrease her pain. With the evaluation, she has decreased active ROM and strength of shoulder flexion and abduction motions, with painful arc; with passive ROM she has full ROM; over the R biceps insertion there is tenderness and spasm over mid biceps; posture with rounded shoulder position; Skilled PT services are indicated for treatment of R rotator cuff syndrome: modalities for pain control, therapeutic exercises to increase ROM and strength with education for HEP and posture correction. Plan of Care Interventions Electrical Stimulation,Hot Pack/Cold Pack,Manual Therapy,Neuro Re-education,Patient Education,Therapeutic Activities,Therapeutic Exercise,Ultrasound,Other Other Interventions nolan, POLO PT Services Indicated Yes Treatment Frequency and 2x/wk for 8
--- NOTE | 2023-10-14 09:57 | PTOPDC ---
Assessment and note entered by Emily Stuart, PT Discharge Information Assessment Status Discharge Diagnosis R shoulder pain Onset Mar 2023 Subjective Information shoulder is better, can drive and do everything; trying to keep shoulders in the right position; have been taking it easy and not doing as many home chores, to let shoulder rest; doing the exercises and ready for discharge; Reported Pain Level Pain Score Self Report Additional Pain Score Comments pain range in the past week 0-2/10; only hurts when raise up and use it; have not needed any heat or ice lately; no problems with pulling up her pants or driving; Assessment PT Clinical Summary Shefali has received 9 PT sessions. Compared to the initial evaluation: pain rating at worst from 8 to 2/10; self assessment within 2% for Quick DASH; increase activity and able to pull up pants and drive without pain increase; increase ROM and strength of R shoulder; most pain with shoulder abduction eccentric motion; education completed for HEP and correct shoulder posture with movements. The goals were partially met. Discharge PT services. She is to continue with the HEP and monitor posture. Plan of Care PT Services Indicated No
== END 2023-10-14 10:33 | disposition home or self-care (01) ==
LOC: ANHPT 09:15
PROVIDERS: PCP Nurse Practitioner Family; Visit Provider Family Medicine
DX: M25.511 Pain in right shoulder (principal)
CPT/HCPCS: 97014; 97110; 97140; 97161; 97530; G0283

== ENCOUNTER 2023-10-21 08:33 | Outpatient (CLI) | payer MEDICARE, SELFPAY ==
[2023-10-21 10:14] LABS: Alanine Aminotransferase 19 U/L (6-35); Albumin Level 4.1 g/dL (3.5-5.1); Alkaline Phosphatase 63 U/L (38-126); Anion Gap 4 mmol/L (4-12); Aspartate Amino Transferase 26 U/L (14-36); Blood Urea Nitrogen 16 mg/dL (7-17); Calcium 9.9 mg/dL (8.4-10.2); Carbon Dioxide 25 mmol/L (22-30); Chloride 109 mmol/L (98-107); Estimated Glomerular Filt Rate 53; Glucose 94 mg/dL (65-110); Phosphorus 3.2 mg/dL (2.5-4.5); Potassium 3.9 mmol/L (3.4-5.0); Sodium 138 mmol/L (137-145)
[2023-10-21 10:28] LABS: Free T4 Free Thyroxine 1.03 ng/mL (0.78-2.19); Vitamin D 25 Hydroxy 51.8 ng/mL
[2023-10-21 10:47] LABS: Hemoglobin A1C 5.6 % (<5.7)
[2023-10-23 10:09] LABS: Ionized Calcium 5.4 mg/dL (4.7-5.5)
== END 2023-10-21 08:34 | disposition home or self-care (01) ==
LOC: ANHLAB 08:34
PROVIDERS: PCP Family Medicine; Visit Provider Internal Medicine
DX: E78.5 Hyperlipidemia, unspecified (principal); I50.9 Heart failure, unspecified; E21.3 Hyperparathyroidism, unspecified; R73.03 Prediabetes
CPT/HCPCS: 36415; 80053; 82306; 82330; 83036; 83735; 83970; 84100; 84439; 84443

== ENCOUNTER 2023-10-23 10:23 | Outpatient (CLI) | payer MEDICARE, SELFPAY ==
--- NOTE | ~2023-10-23 | NM_ITS ---
EXAMINATION: NM parathyroid imaging w spect DATE: 10/23/2023 15:30 INDICATION: Upper parathyroid is an TECHNIQUE: 20.8 mCi Tc99m tetrofosmin (Myoview) was administered by intravenous route. Anterior image s of the neck were obtained at 10 minutes and 2 hours. COMPARISON: None. FINDINGS/IMPRESSION: There is no focus of persistent activity in the area of the thyroid or mediastinum to suggest parathy roid adenoma. Reviewed, dictated and finalized at location A.
--- NOTE | ~2023-10-23 | US_ITS ---
EXAMINATION: US thyroid DATE: 10/23/2023 11:17 INDICATION: Thyroid nodule. TECHNIQUE: Multiple ultrasound images of the thyroid were obtained. COMPARISON: None. FINDINGS: The right thyroid lobe measures 3.3 x 1.6 x 1.7 cm. The left thyroid lobe measures 3.7 x 1.7 x 1.3 c m. In the right thyroid lobe, there is a 6 mm cystic nodule (TI-RADS TR1). In the thyroid isthmus, t here is a 9 mm mixed cystic and solid nodule with smooth margin and peripheral calcifications (TR2). IMPRESSION: 1. Small thyroid nodules, likely not clinically significant. No follow-up is needed. Reviewed, dictated and finalized at location E. IMPRESSION: 1. Small thyroid nodules, likely not clinically significant. No follow-up is ne eded.
[2023-10-23 10:54] LABS: Creatinine Urine 46.8 mg/dL
[2023-10-23 10:57] LABS: Creatinine 24 Hour Urine 0.7 gm/24 (0.8-1.8); Total Volume 24 Hour Urine 1700 ml
[2023-10-25 14:55] LABS: Total Volume 1700 mL
== END 2023-10-23 10:24 | disposition home or self-care (01) ==
PROVIDERS: PCP Family Medicine; Visit Provider Internal Medicine
DX: E78.5 Hyperlipidemia, unspecified (principal); E21.3 Hyperparathyroidism, unspecified; R73.03 Prediabetes
CPT/HCPCS: 76536; 78071; 81050; 82340; 82570; A9500

== ENCOUNTER 2024-02-19 08:25 | Outpatient (CLI) | payer MEDICARE, SELFPAY ==
[2024-02-19 09:10] LABS: Hematocrit 38.8 % (37.0-47.0); Hemoglobin 12.7 g/dL (12.0-15.0); Mean Corpuscular HGB Conc 32.7 g/dl (32-36); Mean Corpuscular Volume 94.6 fl (80-100); Mean Platelet Volume 8.9 fl (7.4-10.4); Platelet Count Result 219 k/mm3 (150-375); White Blood Count 5.8 K/mm3 (4.5-10.0)
[2024-02-19 09:25] LABS: Alanine Aminotransferase 16 U/L (6-35); Albumin Level 4.1 g/dL (3.5-5.1); Alkaline Phosphatase 62 U/L (38-126); Anion Gap 9 mmol/L (4-12); Aspartate Amino Transferase 26 U/L (14-36); Bilirubin,Total 0.6 mg/dL (0.2-1.3); Blood Urea Nitrogen 17 mg/dL (7-17); Calcium 9.6 mg/dL (8.4-10.2); Carbon Dioxide 25 mmol/L (22-30); Chloride 106 mmol/L (98-107); Estimated Glomerular Filt Rate 53; Glucose 93 mg/dL (65-110); Potassium 4.2 mmol/L (3.4-5.0); Sodium 140 mmol/L (137-145)
[2024-02-19 10:35] LABS: Vitamin D 25 Hydroxy 59.9 ng/mL
== END 2024-02-19 08:26 | disposition home or self-care (01) ==
PROVIDERS: PCP Family Medicine; Visit Provider Family Medicine
DX: E78.5 Hyperlipidemia, unspecified (principal); I11.0 Hypertensive heart disease with heart failure; I50.9 Heart failure, unspecified; E55.9 Vitamin D deficiency, unspecified; R00.1 Bradycardia, unspecified; R42 Dizziness and giddiness
CPT/HCPCS: 36415; 80053; 82306; 85027

== ENCOUNTER 2024-03-30 07:50 | Outpatient (CLI) | payer MEDICARE, SELFPAY ==
--- NOTE | ~2024-03-30 | DEXA_ITS ---
Bone Density Report Name: TANGELA GAMINO Age: 88 Sex: Female Ethnicity: White Date of : 1935 Indication: osteopenia; height loss; Referring Provider: LEILANI RAMOS Study: Bone densitometry was performed. Exam Date: March 30, 2024 Accession number: [id number] Bone Density: Region BMD T-score Z-score Classification AP Spine(L1-L4) 1.063 0.1 3.0 Normal Femoral Neck (Left) 0.608 -2.2 0.3 Osteopenia Total Hip (Left) 0.783 -1.3 1.0 Osteopenia Femoral Neck (Right) 0.661 -1.7 0.8 Osteopenia Total Hip (Right) 0.778 -1.3 1.0 Osteopenia Total Hip Mean 0.780 -1.3 1.0 Osteopenia World Health Organization criteria for BMD impression classify patients as: Normal (T-score at or above -1.0), Osteopenia (T-score between -1.0 and -2.5), or Osteoporosis (T-score at or below -2.5). 10-year Fracture Risk(1): Major Osteoporotic Fracture 15% Hip Fracture 4.9% Reported Risk Factors: [place] (), Neck BMD=0.608, BMI=29.6 (1) FRAX(R) Version 3.08. Fracture probability calculated for an untreated patient. Fracture probability may be lower if the patient has received treatment. Previous Exams: Region Exam Age BMD T-score BMD Change BMD Change Date g/cm2 vs Baseline vs Previous Total Hip(Left) 03/30/2024 88 0.783 -1.3 -0.120 (-13.3% -0.056 (-6.7%) 05/16/2021 85 0.839 -0.8 -0.063 (-7.0%) -0.063 (-7.0%) 05/07/2019 83 0.902 -0.3 Total Hip(Right) 03/30/2024 88 0.778 -1.3 -0.072 (-8.4%) -0.024 (-3.0%) 05/16/2021 85 0.801 -1.2 -0.048 (-5.6%) -0.048 (-5.6%) 05/07/2019 83 0.849 -0.8 *Denotes significance at 95% confidence level, LSC for Total Hip = 0.027 g/cm2 Clinical Information Provided by Patient: Has used the following medications: Vitamin D, Calcium Patient maximum height was 61 Menopause Age: 47 Onset of menses at age 13 Number of children 4 Impression: The patient has low bone mass, based on the Left Femoral Neck T-score. The patient has an estimated ten-year risk of hip fracture of 4.9% and an estimated ten-year risk of major fracture of 15%, based on the WHO FRAX algorithm. The BMD for the Total Hip(Left) decreased, changing by -6.7% since the last DXA exam. Discussion: BONE DENSITY IS LOW AT ONE OR MORE SKELETAL SITES. THE PATIENT'S BMD AND CLINICAL RISK FACTORS CONTRIBUTE TO THIS PATIENT'S INCREASED RISK OF FRACTURE. This patient's lowest T-score is low at one or more skeletal sites. It meets the World Health Organi
== END 2024-03-30 07:51 | disposition home or self-care (01) ==
LOC: ANHIMG 07:51
PROVIDERS: PCP Family Medicine; Visit Provider Internal Medicine
DX: M85.89 Other specified disorders of bone density and structure, multiple sites (principal); Z13.820 Encounter for screening for osteoporosis; R73.03 Prediabetes; E78.5 Hyperlipidemia, unspecified; E21.3 Hyperparathyroidism, unspecified
CPT/HCPCS: 77080

== ENCOUNTER 2024-04-15 12:06 | Outpatient (RCR) | payer MEDICARE, SELFPAY ==
--- NOTE | 2024-04-15 15:08 | STOPEVDC ---
Assessment and note entered by Elle Moraes, CYCLE CONSULTANT Thank you for referring Shefali Mojica [facility].? An evaluation has been completed. No further treatment is needed. Evaluation Information Assessment Status Evaluation ICD-10 Condition Codes (ST) Dysphonia R49.0 Onset 12/29 Subjective Information The patient reports she has a history of post- nasal drip all the time, and that she takes Eratadine (allergy medication) one time in the morning, and a nasal spray, twice daily. She reports a history of the post nasal drip for years but hoarseness only in the past couple of months. She reports her ENT did not find any particular issues with vocal cords when assessed. Reported Pain Level Pain Score 0: Self Report Assessment ST Clinical Summary VOICE EVALUATION Today the patient reports that she feels her voice has been inconsistently hoarse for about the past three to four months. She stated her physician and her ENT have found no specific reason for her hoarseness other than she has post nasal drip in the mornings. She reports that she feels her voice is more hoarse in the morning, improving as the day progresses. Patient's vocal loudness and pitch range were evaluated and found to be within normal limits. Voice was judged to be within normal limits for voice parameters of loudness, pitch range, respiration, phonation, and intelligibility. Patient was instructed in the use of voice relaxation techniques, breathing exercises, and vocal hygiene program and was discharged at this time. She voiced understanding of techniques. No further Speech Therapy is indicated. Plan of Care ST Services Indicated No
== END 2024-04-16 09:48 | disposition home or self-care (01) ==
LOC: ANHST 12:06
PROVIDERS: PCP Family Medicine; Visit Provider Family Medicine
DX: R49.0 Dysphonia (principal)
CPT/HCPCS: 92524

== ENCOUNTER 2024-05-21 10:31 | Emergency (ER) | payer MEDICARE, SELFPAY ==
--- NOTE | ~2024-05-21 | US_ITS ---
EXAMINATION: US venous doppler LE RT DATE: 05/21/2024 12:05 INDICATION: Right lower limb swelling and erythema and pain. TECHNIQUE: Grayscale ultrasound images without and with compression and Doppler ultrasound images of the right lower extremity veins were obtained. COMPARISON: None. FINDINGS: The visualized portions of right common femoral vein, profunda (deep) femoral vein, femoral vein, pop liteal vein, peroneal veins, posterior tibial veins, and greater saphenous vein outflow are patent. IMPRESSION: 1. No deep venous thrombosis. Reviewed, dictated and finalized at location A. UNTANT CLERK
[2024-05-21 10:40] VITALS: BP 143/70; PULSE 74; RESP 18; TEMP 36.6; O2SAT 100
[2024-05-21 11:27] VITALS: BP 143/70; PULSE 74; RESP 18; TEMP 36.6; O2SAT 100
--- NOTE | 2024-05-21 12:56 | ED_ITS ---
HPI - General Adult General Chief complaint: Extremity Injury, Lower Stated complaint: right leg swelling Time Seen by Provider: 05/21/24 12:28 Source: patient Mode of arrival: ambulatory Limitations: no limitations History of Present Illness HPI narrative: PATIENT COMPLAINING OF SWELLING OF THE LEFT LOWER EXTREMITY STARTED WEEKS/MONTHS AGO, BEEN USING A COMPRESSION STOCKING INTERMITTENTLY, SHE DENIES ANY TRAUMA, FEVER, CHILLS, NEW PAIN. PATIENT STARTED ON GABAPENTIN FOR PERIPHERAL NEUROPATHY FEW WEEKS AGO, THE DOSE WAS DOUBLED YESTERDAY, PATIENT IS CONCERNED ABOUT THE POSSIBILITY OF RELATIONSHIP BETWEEN THE GABAPENTIN AND SWELLING. Related Data Home Medications Medication Instructions Recorded Confirmed Lactobacills gasseri-Bifidobac 1 cap PO DAILY 05/01/20 04/23/24 bifidum,longum 1.5 billion cell capsule ([employer]) aspirin 81 mg tablet,delayed 81 mg PO DAILY 05/01/20 04/23/24 release calcium 500 mg-vitamin D3 100 1 tablet PO BID 05/01/20 04/23/24 unit-vitamin K 40 mcg chewable tablet cranberry 400 mg capsule 400 mg PO DAILY 05/01/20 04/23/24 glucosamine sulf dipot 2 cap PO BID 05/01/20 04/23/24 chlr,msm,chond 550 mg-C 30 mg-genevieve 1 mg capsule (Glucosamine Chondroitin) lzxxjfhc-xsj-szvlk acid 0.4 1 tablet PO DAILY 05/01/20 04/23/24 mg-lycopene 300 mcg-lutein 250 mcg tablet (Centrum Silver) vit C 250 mg-vit E 90 mg-zinc 40 1 tablet PO BID 05/01/20 04/23/24 mg-copper 1 wz-osjhve-zpmcjg capsule (PreserVision AREDS-2) Allergies Allergy/AdvReac Type Severity Reaction Status Date / Time Sulfa (Sulfonamide Allergy Severe Anaphylaxis Verified 04/23/24 10:38 Antibiotics) Cephalosporins AdvReac Mild Hives Verified 04/23/24 10:38 codeine AdvReac Mild Hives Verified 04/23/24 10:38 hydrocodone AdvReac Mild Hives Verified 04/23/24 10:38 Penicillins AdvReac Mild Hives Verified 04/23/24 10:38 Review of Systems Review of Systems: All systems reviewed & are unremarkable except as noted in HPI and below PMFSH Past Medical History Medical History Congestive heart failure in 2017 she was noted to have impaired diastolic relaxation grade 1 any ejection fraction at 36%. 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 Elevated parathyroid hormone Gastro-esophageal reflux disease without esophagitis (04/03/19) Generalized anxiety disorder History of non-ST elevation myocardial infarction (NSTEMI) Hypercalcemia Lump in neck Macular degeneration on ared Plantar fasciitis of right foot Postmenopausal Takotsubo cardiomyopathy Thumb pain Trigger finger Surgical History Surgical History Cataract extraction status H/O cardiac catheterization H/O: hysterectomy Hx of appendectomy Family History Family History Sibling Patient's brother is in good health 1 brother is healthy but the other brother from lung cancer Lung cancer 1 brother is healthy and the other brother from lung cancer Mother Family history of Parkinson's disease Patient's mother is Father Family history of congestive heart failure Patient's father is Other Family history of malignant neoplasm Social History Social History Social History: the patient stated that she lives with her and he is a durable power assistant attorney general for healthcare. The patient stated that she quit smoking about 37 years ago. She has 4 children. 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 No alcohol marijuana or illicit drugs. Smoking packs per day: 0.5 Smoking cigarettes per day: 10.0 Years smoked: 20 Smoking pack-years: 10.00 Smoking status: Former smoker Smoking end date: 12/25/81 Alcohol intake: never Substance use: never Substance use type: does not use Lack of Transportation: No Lack of Food: Never True Current Housing: I Have Housing Concerned About Future Housing: No Difficulty Paying Gas/Electric Bills: No Difficulty Paying for Meds: No Currently Unemployed: No Education: High School Diploma/GED Difficulty w/ Childcare or Family Care: No Living arrangements: with family Occupation/Education: retired Gender identity (if verbalized by the patient): Female Spiritual care concerns: No Exam Narrative: GENERAL APPEARANCE: WELL-DEVELOPED, WELL-NOURISHED SKIN: NORMAL COLOR HEAD: NORMOCEPHALIC, NONTRAUMATIC EYES: CLEAR CONJUNCTIVA ENT: OROPHARYNX NORMAL, EARS NORMAL, NOSE NORMAL NECK: SUPPLE, NONTENDER CHEST AND RESPIRATORY: AIRWAY PATENT, NO RESPIRATORY DISTRESS, NO ACCESSORY MUSCLE USE HEART: REGULAR RATE/RHYTHM ABDOMEN: SOFT, NONTENDER, NO ORGANOMEGALY, QUIET BOWEL SOUNDS VASCULAR: NORMAL PERIPHERAL PULSES, NORMAL CAPILLARY REFILL. MUSCULOSKELETAL: LEFT LOWER LEG SHOWED DIFFUSE SWELLING, SIGNIFICANT VARICOSE VEINS, NO ERYTHEMA, NO WOUND, NO LOCALIZED TENDERNESS, NEUROLOGIC: ALERT AND ORIENTED ?3, RECORD CHANGER ASSEMBLER IS NORMAL TESTED, NO GROSS MOTOR DEFICIT Course Vital Signs Vital signs: Vital Signs Temperature 36.6 C 05/21/24 10:40 Pulse Rate 74 05/21/24 10:40 Respiratory Rate 18 05/21/24 10:40 Blood Pressure 143/70 H 05/21/24 10:40 Pulse Oximetry 100 05/21/24 10:40 Oxygen Delivery Room Air 05/21/24 10:40 Temperature 36.6 C 05/21/24 13:58 Pulse Rate 63 05/21/24 13:58 Respiratory Rate 15 05/21/24 13:58 Blood Pressure 182/71 H 05/21/24 13:58 Pulse Oximetry 100 05/21/24 13:58 Oxygen Delivery Room Air 05/21/24 11:27 Medical Decision Making MDM Narrative Medical decision making narrative: PATIENT CAME WITH SWELLING OF THE LEFT LOWER EXTREMITY, NONTRAUMATIC VITAL SIGNS ARE STABLE PHYSICAL EXAMINATION SHOWING SIGNIFICANT VARICOSE VEIN OF THE LEFT LOWER EX TREMITY WITH DIFFUSE SWELLING DIFFERENTIAL DIAGNOSIS INCLUDE VENOUS INSUFFICIENCY, DEPENDENT EDEMA, DEEP VEIN THROMBOSIS VENOUS DOPPLER SHOWED NO DEEP VEIN THROMBOSIS MY DIAGNOSIS IS LEFT LOWER EXTREMITY VENOUS INSUFFICIENCY. Differential Diagnosis Differential Diagnosis: ABOVE Vital Signs Vital Signs: Vital Signs Temperature 36.6 C 05/21/24 10:40 Pulse Rate 74 05/21/24 10:40 Respiratory Rate 18 05/21/24 10:40 Blood Pressure 143/70 H 05/21/24 10:40 Pulse Oximetry 100 05/21/24 10:40 Oxygen Delivery Room Air 05/21/24 10:40 Temperature 36.6 C 05/21/24 13:58 Pulse Rate 63 05/21/24 13:58 Respiratory Rate 15 05/21/24 13:58 Blood Pressure 182/71 H 05/21/24 13:58 Pulse Oximetry 100 05/21/24 13:58 Oxygen Delivery Room Air 05/21/24 11:27 Critical Care Time Critical Care Time Critical Care Time: No Discharge Plan Discharge Clinical Impression: Varicose veins of left calf Patient Disposition: Home, Self-Care Condition: Stable Instructions: Venous Insufficiency (DC) Additional Instructions: DISCHARGE INSTRUCTIONS KEEP LEFT LEG ELEVATED COMPRESSION STOCKING STAY ACTIVE THE PT WAS DISCHARGED TO HOME.THE PT,S CONDITION UPON DISCHARGE WAS FAIR,EDUCATION WAS PROVIDED TO THE PT IN REFERENCE TO THE FINAL IMPRESSION,DISCHARGE STUDY RESULTS,TREATMENT,PROGNOSIS AND NEED FOR FOLLOW UP . Prescriptions: No Action baclofen 10 mg tablet See Rx Instructions .ROUTE .COMPLEX Qty: 180 1RF Dose Instruction: TAKE 1 TABLET BY MOUTH EVERY NIGHT AT BEDTIME AND EVERY MORNING NEEDED FOR LEG CRAMPS Rx Instructions: TAKE 1 TABLET BY MOUTH EVERY NIGHT AT BEDTIME AND EVERY MORNING NEEDED FOR LEG CRAMPS gabapentin 100 mg capsule 100 mg PO TID Qty: 90 1RF aspirin 81 mg Tablet,Delayed Release (Dr/Ec) 81 mg PO DAILY cranberry 400 mg Capsule 400 mg PO DAILY Centrum Silver 0.4-300-250 mg-mcg-mcg Tablet 1 tablet PO DAILY calcium-vitamin D3-vitamin K 500-100-40 mg-unit-mcg Tablet,Chewable 1 tablet PO BID Feed[employer]fm 1.5 billion cell Capsule 1 cap PO DAILY PreserVision AREDS-2 336-017-31-1 wm-linp-tk-mg Capsule 1 tablet PO BID Glucosamine Chondroitin 550-30-1 mg Capsule 2 cap PO BID meclizine 12.5 mg Tablet 12.5 mg PO QID PRN (Reason: Dizziness) Qty: 20 0RF sertraline 25 mg tablet See Rx Instructions .ROUTE .COMPLEX Qty: 90 0RF Dose Instruction: TAKE 1 TABLET BY MOUTH DAILY Rx Instructions: TAKE 1 TABLET BY MOUTH DAILY pantoprazole 40 mg tablet,delayed release (DR/EC) See Rx Instructions .ROUTE .COMPLEX Qty: 90 0RF Dose Instruction: TAKE 1 TABLET BY MOUTH EVERY MORNING Rx Instructions: TAKE 1 TABLET BY MOUTH EVERY MORNING ipratropium bromide 21 mcg (0.03 %) spray,non-aerosol See Rx Instructions .ROUTE .COMPLEX Qty: 30 0RF Dose Instruction: USE 2 SPRAYS IN EACH NOSTRIL TWICE DAILY Rx Instructions: USE 2 SPRAYS IN EACH NOSTRIL TWICE DAILY loratadine 10 mg tablet 10 mg PO DAILY Qty: 90 1RF Follow-up/Referrals: Mike Flaherty MD [Primary Care Provider] -
[2024-05-21 13:58] VITALS: BP 182/71; PULSE 63; RESP 15; TEMP 36.6; O2SAT 100
== END 2024-05-21 14:03 | disposition home or self-care (01) ==
PROVIDERS: Emergency Provider Emergency Medicine; PCP Family Medicine
DX: I83.91 Asymptomatic varicose veins of right lower extremity (principal); G62.9 Polyneuropathy, unspecified; Z79.82 Long term (current) use of aspirin; I50.9 Heart failure, unspecified; F41.1 Generalized anxiety disorder; K21.9 Gastro-esophageal reflux disease without esophagitis; Z87.891 Personal history of nicotine dependence
CPT/HCPCS: 93971; 99284

== ENCOUNTER 2024-08-03 10:17 | Outpatient (CLI) | payer MEDICARE, SELFPAY ==
--- NOTE | ~2024-08-03 | XR_ITS ---
Left Knee Technique: AP, lateral, and sunrise views were obtained. Clinical History: Pain Findings: No fracture or dislocation is seen. There is mild degenerative change, especially at the la teral compartment.. Soft tissues are unremarkable. Small to moderate joint effusion is seen. Impression: Degenerative change, as above. Small to moderate joint effusion. Reviewed, dictated and finalized at location . ER REPAIRER Impression: Degenerative change, as above. Small to moderate joint effusion.
--- NOTE | ~2024-08-03 | XR_ITS ---
Left ankle Technique: AP and lateral views were obtained. Clinical History: Pain Findings: No acute fracture or dislocation is seen. Osseous alignment is anatomic. Ankle mortise and other visualized joint spaces are preserved. There is mild diffuse soft tissue edema. Plantar calcane al spur present. Impression: No acute abnormality. Reviewed, dictated and finalized at [facility]. IELD PLANT AND FIELD OPERATOR Impression: No acute abnormality.
--- NOTE | ~2024-08-03 | XR_ITS ---
AP and lateral views of the left tibia/fibula Clinical History: Pain Findings: No acute fracture or dislocation is seen. Osseous alignment is anatomic. There are minimal degenerative changes of the knee. Tibiotalar joint intact. Soft tissues are unremarkable. Impression: Minimal degenerative change of the knee. Reviewed, dictated and finalized at [facility]. RATORY CUREMAN Impression: Minimal degenerative change of the knee.
== END 2024-08-03 10:18 | disposition home or self-care (01) ==
PROVIDERS: PCP Family Medicine; Visit Provider Family Medicine
DX: M17.12 Unilateral primary osteoarthritis, left knee (principal); S86.892A Other injury of other muscle(s) and tendon(s) at lower leg level, left leg, initial encounter; X58.XXXA Exposure to other specified factors, initial encounter; M25.462 Effusion, left knee
CPT/HCPCS: 73562; 73590; 73600

== ENCOUNTER 2024-08-28 09:26 | Outpatient (CLI) | payer MEDICARE, SELFPAY ==
--- OUTSIDE RECORDS SUMMARY | 2024-08-28 10:06 | XMS_ITS | Clinical Summary ---
Author Organization [facility] Address [address] [place] [address] Care Team Providers Care Farm Manager Name Role Phone Mike Flaherty MD Primary Care Provider [phone] Allergies Active Allergy Reactions Criticality Noted Date Comments Cefaclor Rash Medium Cephalosporins Hives,Rash Medium 05/18/2009 Gjokjpqhx-Wppfqnxgr-Czzh ocodon Hives Medium 05/18/2009 Codeine Hives Medium 05/18/2009 Reaction: Hives, , Hydrocodone Hives Medium 05/18/2009 Penicillin Hives Medium 05/22/2017 Penicillins Hives,Rash Medium 05/18/2009 Sulfa (Sulfonamide Antibiotics) Anaphylaxis,Hives, Shortness of breath High 05/18/2009 Other reaction(s): breathing difficulty, red generalized rash , Medications aspirin 81 mg tablet Take one by mouth one time per day 0 0 8 Active L. gasseri-B. bifidum-B longum (ToolWire) 1.5 billion cell capsule 1 daily 0 2 Active vit C-vit Y-pwzxod-aluy-l utein (PRESERVISION LUTEIN) 226 mg-200 unit -5 mg-0.8 mg capsule take as directed 0 0 4 Active baclofen (LIORESAL) 10 mg tablet take 1 tablet by oral route 1 time a bedtime 0 0 5 Active promethazine (PHENERGAN) 25 mg tablet take 1 tablet by ORAL route 3 times every day as needed for nausea 30 0 03/13/201 2 Active Additional Information Patient not taking.Reported on 06/13/[address] (PROTONIX) 40 mg EC tablet TAKE 1 TABLET BY ORAL ROUTE EVERY DAY 30 6 5 Active multivitamin-mi nerals-lutein (CENTRUM SILVER) tablet Take one by mouth one time per day 0 0 7 Active calcium-vitamin D3-vitamin K (VIACTIV) 500-500-40 mg-unit-mcg tablet,chewable Take one by mouth two times per day 0 0 7 Active Additional Information Patient not taking.Reported on 12/10/2017 atorvastatin (LIPITOR) 20 mg tablet Take 20 mg by mouth daily. Active clopidogrel (PLAVIX) 75 mg tablet Take 75 mg by mouth daily. Active lisinopril (PRINIVIL,ZESTR IL) 10 mg tablet Take 10 mg by mouth daily. Active metoprolol XL (TOPROL-XL) 25 mg 24 hr tablet Take 25 mg by mouth daily. Active sertraline (ZOLOFT) 25 mg tablet Take 25 mg by mouth daily. Active fluticasone (FLONASE) 50 mcg/actuation nasal spray Administer 1 spray into each nostril daily. Active CRANBERRY FRUIT EXTRACT (CRANBERRY EXTRACT) 300 mg tablet Take by mouth. Activ e FOLIC ACID/MULTIVIT-M IN/LUTEIN (CENTRUM SILVER ORAL) Take by mouth. Activ e loratadine 10 mg capsule Take by mouth. Acti ve ciclopirox (PENLAC) 8 % solution 2 times daily. 5 Active ascorbic acid (vitamin C) 100 mg tablet Active cholecalciferol (VITAMIN D3) 1,000 unit capsule Active vit A-vit I-omjr-rjcooynt (ZINC, WITH A AND C, LOZENGES) lozenge Active pantoprazole DR (PROTONIX) 40 mg EC tablet Active pantoprazole DR (PROTONIX) 40 mg EC tablet Active calcium-vitamin D3-vitamin K (VIACTIV) 500-500-40 mg-unit-mcg tablet,chewable Acti ve ipratropium (ATROVENT) 0.03 % nasal spray INL 1 TO 2 SPRAYS IEN BID 3 9 Active triamcinolone (KENALOG) 0.1 % ointment WAI TO RASH ON HANDS BID 6 9 Active Active Problems Problem Noted Date Diagnosed Date Takotsubo cardiomyopathy 04/30/2017 Melanocytic nevus of face 03/20/2016 Sebaceous gland hyperplasia 03/20/2016 Milia 03/20/2016 Hemangioma of skin 03/20/2016 Fibrocystic breast changes 11/28/2015 Onychomycosis 04/11/2015 Keratosis, senilis 04/11/2015 Varicose veins of lower extremity 01/19/2014 Overview (10/12/2016): VARIC VEIN LEG,COMP NEC Edema 11/21/2013 Overview (10/13/2016): EDEMA Diverticular disease of colon 06/15/2013 Overview (10/12/2016): Diverticulosis of colon Hypertension 06/15/2013 Overview (10/12/2016): Hypertension, Unspecified Immunizations Immunization Administration Dates Next Due Influenza LAIV (Nasal) 04/04/2009 Influenza, Split 04/20/2010 Influenza, Trivalent, High D ose, Split, Preservative Free, Intramuscular 04/07/2014 Influenza, Trivalent, IM (MDV) 3,04/03/2012,03/12/2011,04/20 Pfizer SARS-CoV-2 Monovalent Vaccination (12+ Yrs) PURPLE 09/08/2020,08/18/2020 Pneumococcal Polysaccharide PPV23 03/12/2011 ZOSTER LIVE 04/21/2012 Surgical History Surgery Date Site/Laterality Comments OTHER SURGICAL HISTORY 07/08/2006 - 07/07/2007 rt endoscopic carpal decompression OTHER SURGICAL HISTORY Arthrocentesis of the left shoulder sub-acromial bursa area HYSTERECTOMY BREAST BIOPSY Medical History Medical History Date Comments Hx Other Medical 2006 left carpal james jesika release Hx Other Medical 2011 carotid artery disease mild R Myocardial infarction (HCC) Family History Medical History Relation Name Comments Lung cancer Brother Hypertension Father Hypertension; No Known Problems Mother Relation Name Status Comments Brother Father Mother Social History Tobacco Use Types Packs/Day Years Used Date Smoking Tobacco: Former Cigarettes Q uit: 02/26/1984 Smokeless Tobacco: Never Comments:Smoking History Pac ks/day: 0.25 Packs Alcohol Use Standard Drinks/Week Comments No 0 (1 standard drink = 0.6 oz pur e alcohol) Comments No Sex and Gender Information Value Date Recorded Sex Assigned at Not on file Legal Sex Female 11:20 PM FLIGHT INSPECTOR Gender Identity Female 08/12/2020 5:16 PM FLIGHT INSPECTOR Sexual Orientation Not on file Obstetrics History Para Term AB IAB SAB Ectopic Multiple Livin g Live Births 4 4 4 Date Outcome GA Total Labor Labor/2nd/3rd Weight Sex Type Anes PTL Noemy A1 A5 Name Clin Term Term Term Term Last Filed Vital Signs Vital Sign Reading Time Taken Comments Blood Pressure 140/72 12/12/2017 8:45 AM CDT Pulse 73 12/12/2017 8:45 AM CDT Temperature - - Respiratory Rate 16 04/30/2017 9:59 AM CDT Oxygen Saturation 95% 12/12/2017 8:45 AM CDT Inhaled Oxygen Concentration - - Weight 75.8 kg (167 lb) 12/12/2017 8:45 AM CDT Height 152.4 cm (5') 12/12/2017 8:45 AM CDT Body Mass Index 32.61 12/12/2017 8:45 AM CDT Plan of Treatment Health Maintenance Due Date Last Done Comments Depression Screening 1937 Fall Risk Assessment 1937 Hepatitis B Screening 1955 Well Visit 65+ 2002 Zoster Vaccine (2 of 3) 06/16/2012 04/21/2012 Covid-19 Vaccine (3 - 2023-2 5 season) 2024 09/08/2020, 08/18/2020 Influenza Vaccine (#1) 2024 9, 04/02/2018, 04/03/2017, Additional history exists DTaP/Tdap/Td Vaccine (3 - Td or Tdap) 11/13/2028 11/13/2018, 04/16/2016 Pneumococcal vaccine 65+ Completed 06/16/2015, 11/2010 Insurance MEDICARE SOLUTIONS [facility] MEDICARE MEDICARE SOLUTIONS [facility] MEDICARE [employer] [facility]IC[facility] Address: [address] [place] [address] Care Teams Farm Manager Relationship Specialty Start Date End Date Mike Flaherty MD PCP - General Family Practice 12/12/23
--- OUTSIDE RECORDS SUMMARY | 2024-08-28 10:06 | XMS_ITS | Data Portability ---
Author Organization [facility],, Judith kessler Address [address] [place] [address] Assessment Encounter Date Assessment Date Assessment LastModified by Organization Details LastModified Time 10/05/2014 10/05/2014 Chronic rhinitis-Will try adding methscopolamine 5 mg P0 4 times a day to her regimen to see if this can improve the postnasal drainage. [email or web address] Not available 10/05/2014 17:39:51 Plan of Treatment Reminders Order Date Submit Date Provider Last Modified By Organization Details Last Modified Time Details Appointments None recorde d. Lab None recorde d. Referral None recorde d. Procedures None recorde d. Surgeries None recorde d. Imaging None recorde d. Medication Orders methsco polamin e 5 mg tablet 2014 015 praveen [id number], [address], [place], [place], [id number], 5 17:39:51 ipratro pium bromide 42 mcg (0.06 %) nasal spray 2012 013 [employer], [address] [place] [address], [address], 3 03:09:36 Patient TargetsNo targets recorded. Patient Instructions Encounter Date Encounter Id Patient Instructions Last Modified By Organization Details Last Modified Time 01/05/2013 [id number] Patient has had a modest response to it. Ectropion bromide nasal spray 0.03% I think a fight, double it to 0.06%. She may have continued improvement. [email or web address] Not available 01/05/2013 12:40:21 10/05/2014 [id number] rhinitis: care instructions [email or web address] Not available 10/05/2014 17:39:51 Reason for Referral None Reported. Problems Name Problem SNOMED Code Status Onset Date Resolution Date Notes Provider Name and Address Organization Details Recorded Time Gastroesophage al reflux disease 488978759 Active MD [address], [place], [address] , [place] [facility], 5 16:36:13 Chronic rhinitis 10857484 Active MD [address], [place], [address] , [place] [facility], 5 17:39:51 Problem Notes None recorded. Medical Equipment None Reported. Allergies Allergen ID Allergen Name Allergen Category Reaction Reaction Severity Criticality Documentation Date Start Date Code Code System Note Provider Name and Address Organization Details Recorded Time 9725 Product containin g penicilli n (product) medicatio n other mild Not available 01/05/2013 22022 8001 SNOMED Mraia birch, [place] [facility], 3 12:06:47 9726 Substance with sulfonami de structure and antibacte rial mechanism of action (substanc e) medicatio n other mild Not available 01/05/2013 43137 8003 SNOMED Maria birch, [place] [facility], 3 12:06:47 9727 codeine medicatio n other mild Not available 01/05/2013 2670 RxNorm Maria birch [place] [facility], 3 12:06:47 9728 Product containin g cephalosp lyle (product) medicatio n other mild Not available 01/05/2013 40876 9009 SNOMED Maria birch, [place] [facility], 3 12:06:47 9729 hydrocodo ne Not available other mild Not available 01/05/2013 5489 RxNorm Maria birch, [place] [facility], 3 12:06:47 Medications Name Sig Start Date Stop Date Status Note LastModified by Organization Details LastModified Time Nexium 40 mg capsule,jazz yed release Take 1 capsule every day by oral route. active Not Available Not Available No t Available ciprofloxaci n 500 mg tablet active Not Available Not Available Not Available baclofen 10 mg tablet active Not Available Not Available No t Available pantoprazole 40 mg tablet,delay ed release active Not Available Not Available N ot Available ipratropium bromide 42 mcg (0.06 %) nasal spray Use 2 sprays nasally two times daily active Not Available Not Available Not Available ipratropium bromide 21 mcg (0.03 %) nasal spray Ceres 2 sprays twice a day by intranasal route. active Not Available Not Available No t Available methscopolam ine 5 mg tablet Take 1 tablet 4 times a day by oral route for 30 days. 2014 active Not Available Not Available Not Avai lable Vitals Date Recorded Body weight Body mass index (BMI) Body height Body temperature Systolic blood pressure Diastolic blood pressure Provider Name and Address Organization Details Last Updated DateTime 5 64876.5 5631 g 30.8 kg/m2 154.94 cm 98.2 [degF] 158 mm[Hg] 76 mm[Hg] Leonie Vivar [place] [facility], 5 16:17:10 Date Recorded Body height Body weight Body temperature Body mass index (BMI) Systolic blood pressure Diastolic blood pressure Provider Name and Address Organization Details Last Updated DateTime 3 154.94 cm 61188.3 3342 g 98 [degF] 31.4 kg/m2 124 mm[Hg] 66 mm[Hg] Maria Garcia [place] [facility], 3 12:03:43 Social History Question Answer Notes LastModified by Organizat ion Details LastModified Time Tobacco Smoking Status Former Smoker Not Available [employer] 05/10/2020 03:24:57 What Is Your Level Of Alcohol Consumption? Occasional [id number] Information not available 05/10/2020 Marital Status [email or web address] Informatio n not available 01/05/2013 Sex: Unknown Functional Status None recorded. Mental Status None recorded. Family History Relationship Description Onset Age of this Age Resolved Age Notes LastModified by Organization Details LastModified Time Mother Old-age 94 [email or web address] Not available 0 10/05/2014 16:17:52 Father Congestive heart failure 84 [email or web address] Not available 2014 16:17:52 Medical History Condition Response Coronary Artery Disease N Gout N Kidney Stones N Hyperthyroidism N Hypothyroidism N Stress N Depression N COPD N Anxiety Disorder N Arthritis N Cancer N Stroke N High Cholesterol N Liver Disease N Fibromyalgia N Kidney Disease N Diabetes N Tuberculosis N Diverticulitis N Asthma N Allergies Y GERD/Reflux Y Heart Disease N Pulmonary Embolism N Hypertension N Osteoporosis N Gynecological HistoryNo gynecological history recorded. Obstetrics History GPAL:G 0 P 0 0 0 0 Past Encounters Encounter ID Performer Location Encounter Start Date Encounter Closed Date Diagnosis/Indication Diagnosis SNOMED-CT Code Diagnosis ICD10 Code Diagnosis Note [id number] Deann Wallis OFFICE [address] [place] [phone] 01/05/2013 11:18:28 01/05/2013 14:19:32 [id number] Steven rivers MD OFFICE [address] [place] [phone] 10/05/2014 15:57:28 10/05/2014 16:51:02 Chronic rhinitis 26670920 Health Concerns Section Related Observation LastModified by Organization Detai ls LastModified Time None Recorded Concern Status LastModified by Organization Details LastModified Time None Recorded Advance Directives Directive None Recorded Payers Encounter Date Sequence Insurance Name Policy Number Policy Cain Covered Member ID Cain Member ID Guarantor Name 01/05/2013 1 [place] Shefali Mojica [id number] Shefali Mojica 01/05/2013 1 [facility] [id number] Shefali Mojica [id number] Shefali Mojica 10/05/2014 1 [facility] (MEDICARE REPLACEMENT/A DVANTAGE - PPO) [id number] Shefali Mojica [id number] Shefali Mojica Notes Date Note Type Note Provider Name and Address Organization Details Recorded Time 01/05/2013 text/html HPI Shefali comes in for followup of her chronic rhinitis. She is much better on ipratropium, bromide 0.03%, but continues to have nasal congestion and postnasal drip. She denies any fevers, chills or purulent sputum production. There is been no problems with shortness of breath. No recurrent sinus infections have been noted. Steven P. MD [address], [place], [address], [place] [facility], 01/05/2013 12:43:41 10/05/2014 text/html HPI Shefali comes in with symptoms of chronic postnasal drainage. She had a good response to Atrovent nasal spray 0.06%, but she feels like it's not working as well as it has. There is constant drainage. It is clear and there is no fever, chills or recurrent sinus infections. MD [address], [place], [address], [place] [facility], 10/05/2014 17:40:03 OBGyn Episode No OBEpisode recorded.
--- OUTSIDE RECORDS SUMMARY | 2024-08-28 10:06 | XMS_ITS | Encounter Summary ---
Author Organization [facility] Address [address] [place] [address] Care Team Providers Care Licensed Professional Counselor Name Role Phone Denis Ventura MD Primary Care Provider [phone] Denis Ventura MD Primary Care Provider [phone] Royer Whelan DO Primary Care Provider [phone] Royer Whelan DO Primary Care Provider [phone] Royer Whelan DO Unavailable Osman Gaspar MD Primary Care Provider [phone] Mike Flaherty MD Primary Care Provider [phone] Encounter Details Date Type Department Care Team (Late st Contact Info) Description 07/12/2016 Orders Only [facility] ProviderStefany MD [address] [place] [address] Social History Tobacco Use Types Packs/Day Years Used Date Smoking Tobacco: Former Comments:Smoking History Pac ks/day: 0.25 Packs Alcohol Use Standard Drinks/Week Comments No 0 (1 standard drink = 0.6 oz pur e alcohol) Comments Unknown Sex and Gender Information Value Date Recorded Sex Assigned at Not on file Legal Sex Female 11:20 PM BUTCHER Gender Identity Female 08/12/2020 5:16 PM BUTCHER Sexual Orientation Not on file documented as of this encounter Plan of Treatment Not on file documented as of this encounter Procedures Procedure Name Priority Date/Time Associated Diagnosis Comments CARDIOLOGY REPORT 07/12/2016 documented in this encounter Results * CARDIOLOGY REPORT (07/12/2016) Anatomical Region Laterality Modality Other Narrative 07/12/2016 Ordered by an unspecified provider. us Historical Provider [facility] REJI RIZZO Final Result documented in this encounter Visit Diagnoses Not on filedocumented in this encounter Care Teams Licensed Professional Counselor Relationship Specialty Start Date End Date Denis Ventura MD PCP - General 08/18/12 10/04/16 Denis Ventura MD PCP - General 10/05/16 12/11/17 Royer Whelan DO PCP - General Internal Medicine 12/12/17 05/16/20 Royer Whelan DO PCP - General 05/17/20 09/18/22 Osman Gaspar MD PCP - General Internal Medicine 09/19/22 12/11/23 Mike Flaherty MD PCP - General Family Practice 12/12/23 Royer Whelan DO Internal Medicine 05/17/20 09/18/22 documented as of this encounter
--- OUTSIDE RECORDS SUMMARY | 2024-08-28 10:06 | XMS_ITS | Data Portability ---
Author Organization [facility], Main Office Address [address] [place] [address] Assessment No assessment recorded. Plan of Treatment Reminders Order Date Submit Date Provider Last Modified By Organization Details Last Modified Time Details Appointments None recorded. Lab calcium, ionized, blood [address] [place] [address] (Lab), [address] [place] [address], [phone], 3 10:51:29 T4, free, serum [address] [place] [address] (Lab), [address] [place] [address], [address], 3 10:51:29 PTH (parathyr oid hormone), intact, serum or plasma [address] [place] [address] (Lab), [address] [place] [address], [address], 3 10:51:29 phosphoru s, serum or plasma [address] [place] [address] (Lab), [address] [place] [address], [address], 3 10:51:29 TSH, serum or plasma [address] [place] [address] (Lab), [address] [place] [address], [address], 3 10:51:29 HbA1c (hemoglob in A1c), blood [address] (Lab), [address] [facility] [address] [facility], [place], [address], 10:51:29 CMP, serum or plasma [address] (Lab), [address] [facility] [address] [place] [address], [address], 10:51:29 Referral None recorded. Procedures None recorded. Surgeries None recorded. Imaging bone density 2022 023 [facility] (Imaging), [address] [place] [address], [address], 11:10:25 Medication Orders None recorded. Patient TargetsNo targets recorded. Patient InstructionsNo instructions recorded. Reason for Referral None Reported. Results Created Date Observation Date Name Description Value Unit Range Abnormal Flag Note LastModifiedBy Organization Detail LastModifiedTime 05/16/20 21 05/16/2021 US, thyro id No observ ation record ed. [id number] [place] [address] (Imaging) [address] [place] [address], [address], 09/05/2022 05:18:19 05/17/20 21 05/16/2021 bone densi ty No observ ation record ed. [id number] [place] [address] (Imaging) [address] [place] [address], [address], 09/05/2022 05:18:19 05/26/20 21 05/16/2021 bone densi ty No observ ation record ed. [id number] [place] [address] (Imaging) [address] [place] [address], [address], 09/05/2022 05:18:19 05/26/20 21 05/16/2021 bone densi ty No observ ation record ed. [id number] [place] [address] (Imaging) [address] [place] [address], [phone], 09/05/2022 05:18:19 05/26/20 21 05/16/2021 bone densi ty No observ ation record ed. [id number] [facility] (Imaging) [facility] [address] [facility], [place], [address], 09/05/2022 05:18:19 05/26/20 21 05/16/2021 bone densi ty No observ ation record ed. [id number] [facility] (Imaging) [address] [place] [address] [address]te [facility], [place], [address], 09/05/2022 05:18:19 05/26/20 21 05/16/2021 bone densi ty No observ ation record ed. [id number] [place] [address] (Imaging) [address] [place] [address] [place] [address], [address], 09/05/2022 05:18:19 05/26/20 21 05/16/2021 bone densi ty No observ ation record ed. [id number] [facility] (Imaging) [address] [place] [address], [address], 09/05/2022 05:18:19 Result Notes None recorded. Problems Name Problem SNOMED Code Status Onset Date Resolution Date Notes Provider Name and Address Organization Details Recorded Time Prediabetes 085778052 Active 2022 Cher Villalobos MD [address], [place], [address], [employer] 3 10:46:37 Hyperparathyro idism 30978043 Active 2022 Cher Villalobos MD [address], [place], [address], [employer] 3 10:46:56 Osteopenia 992277783 Active 2022 Cher Villalobos MD [address], [place], [address], [employer] [facility] 3 10:47:36 Problem Notes None recorded. Procedures Surgical History Date Name Laterality Status Provider Name and Address Organization Details Recorded Time release of trigger finger completed Not Available [facility] 09/05/2022 05:05:00 tooth extraction completed Not Available [facility] 09/05/2022 05:05:00 Breast Biopsy completed Not Available [facility] 09/05/2022 05:05:00 [facility]end[facility] 05:05:00 Hysterectomy completed [facility]/05/2022 05:05:00 Imaging Results Imaging Date Name Status LastModified by Organiz ation Details LastModified Time 05/16/2021 bone density completed MIGRATION. [facility] (Imaging) [address] [place] [address], [phone], 09/05/2022 05:18:19 05/16/2021 US, thyroid completed MIGRATION. [facility] (Imaging) [address] [place] [address], [address], 09/05/2022 05:18:19 05/16/2021 bone density completed MIGRATION. [facility] (Imaging) [address] [place] [address], [address], 09/05/2022 05:18:19 05/16/2021 bone density completed MIGRATION. [facility] (Imaging) [address] [place] [address], [address], 09/05/2022 05:18:19 05/16/2021 bone density completed MIGRATION. 026 [facility] (Imaging) [address] [place] [address], [address], 09/05/2022 05:18:19 05/16/2021 bone density completed MIGRATION. [facility] (Imaging) [facility] [address], [address], 09/05/2022 05:18:19 05/16/2021 bone density completed [id number] 30 026 [facility] (Imaging) [address] [facility] [address] [place] [address], [address], 09/05/2022 05:18:19 05/16/2021 bone density completed [id number] 30 026 [facility] (Imaging) [address] [facility] [address], [address], 09/05/2022 05:18:19 Procedure Notes None recorded. Medical Equipment None Reported. Allergies Allergen ID Allergen Name Allergen Category Reaction Reaction Severity Criticality Documentation Date Start Date Code Code System Note Provider Name and Address Organization Details Recorded Time 9457 Substance with sulfonami de structure and antibacte rial mechanism of action (substanc e) medicatio n Not available Not available Not available 09/05/2022 61103 8003 SNOMED Not Available [facility] 3 05:17:53 9458 Product containin g penicilli n (product) medicatio n Not available Not available Not available 09/05/2022 24916 8001 SNOMED Not Available [facility] 3 05:17:53 9459 codeine medicatio n Not available Not available Not available 09/05/2022 2670 RxNorm Not Available [facility] 3 05:17:53 9460 Product containin g cephalosp lyle (product) medicatio n Not available Not available Not available 09/05/2022 27750 9009 SNOMED Not Available [facility] 3 05:17:53 Medications Name Sig Start Date Stop Date Status Note LastModified by Organization Details LastModified Time neomycin-po lymyxin-hyd rocort 3.5 mg/mL-10,00 0 unit/mL-1 % ear solution WAI 2 GTS TO NAIL-BED BID 02/06 completed Not Available Not Available Not Available clindamycin HCl 300 mg capsule TAKE 1 CAPSULE BY MOUTH TWICE DAILY 10/23 completed Not Available Not Available Not Available azithromyci n 250 mg tablet TK 2 TS PO ON DAY 1, THEN TK 1 T PO D FOR 4 DAYS 02/06 completed Not Available Not Available Not Available benzonatate 200 mg capsule TAKE 1 CAPSULE BY MOUTH THREE TIMES DAILY NEEDED FOR COUGH 10/23 completed Not Available Not Available Not Available meclizine 12.5 mg tablet TK 1 T PO QID PRF DIZZINESS active Not Available Not Available No t Available ciprofloxac in 500 mg tablet TAKE 1 TABLET BY MOUTH TWICE DAILY FOR SYMPTOMS OF UTI. CALL IF SYMPTOMS PERSIST 10/23 completed Not Available Not Available Not Available acyclovir 800 mg tablet 10/23 completed Not Available Not Available Not Available baclofen 10 mg tablet TAKE 1 TABLET BY MOUTH EVERY NIGHT AT BEDTIME AND 1 TABLET EVERY MORNING NEEDED FOR LEG CRAMPS active Not Available Not Available No t Available pantoprazol e 40 mg tablet,jazz yed release TAKE 1 TABLET BY MOUTH EVERY MORNING active Not Available Not Available No t Available triamcinolo ne acetonide 0.1 % topical ointment 05/25 completed Not Available Not Available Not Available cranberry fruit 400 mg capsule Take every day by oral route. 2018 active Not Available Not Available Not Avai lable sertraline 25 mg tablet TAKE 1 TABLET BY MOUTH DAILY active Not Available Not Available No t Available levofloxaci n 500 mg tablet TAKE 1 TABLET BY MOUTH DAILY 10/23 completed Not Available Not Available Not Available fluticasone propionate 50 mcg/actuati on nasal spray,suspe nsion SHAKE LIQUID AND USE 1 SPRAY IN EACH NOSTRIL TWICE DAILY active Not Available Not Available No t Available ipratropium bromide 21 mcg (0.03 %) nasal spray 05/25 completed Not Available Not Available Not Available Glucosamine /Chondroiti n capsule Take 2 capsules every day by oral route. 2018 active Not Available Not Available Not Avai lable Boostrix Tdap 2.5 Lf unit-8 mcg-5 Lf/0.5 mL intramuscul ar suspension active Not Available Not Available N ot Available Aspir-81 1 tablet daily 2018 active Not Available Not Available Not Avai lable Centrum 1 tablet daily 2018 active Not Available Not Available Not Avai lable Viactiv 500 mg-200 unit-40 mcg chewable tablet Take 1 tablet twice a day by oral route. 10/23 completed Not Available Not Available Not Available [facility]' [facility] 1.5 billion cell capsule Take 1 capsule every day by oral route. 2018 active Not Available Not Available Not Avai lable Mucinex Cold,Flu and Sore Throat 10 mg-20 mg-650 mg/20 mL oral liquid Take 1 mL 3 times a day by oral route. 02/06 completed Not Available Not Available Not Available PreserVisio n AREDS-2 250 mg-90 mg-40 mg-1 mg capsule Take 1 tablet twice a day by oral route. 2018 active Not Available Not Available Not Avai lable Fluzone High-Dose (PF) 180 mcg/0.5 mL intramuscul ar syringe active Not Available Not Available N ot Available Fluzone High-Dose Quad (PF) 240 mcg/0.7 mL IM syringe ADM 0.7ML IM UTD 10/23 completed Not Available Not Available Not Available Vitals Date Recorded Body mass index (BMI) Body height Oxygen saturation Oxygen saturation in Arterial blood by Pulse oximetry Heart rate Body temperature Body weight Systolic blood pressure Diastolic blood pressure Provider Name and Address Organization Details Last Updated DateTime 1 30.7 kg/m2 152.4 cm 97 % 97 % 63 /min 98.1 [degF] 96025 g 124 mm[Hg] 64 mm[Hg] Not Available [facility] 3 05:05:57 Date Recorded Body mass index (BMI) Body height Oxygen saturation Oxygen saturation in Arterial blood by Pulse oximetry Heart rate Body temperature Body weight Systolic blood pressure Diastolic blood pressure Provider Name and Address Organization Details Last Updated DateTime 1 29.7 kg/m2 152.4 cm 98 % 98 % 64 /min 98.4 [degF] 63212.0 4 g 176 mm[Hg] 80 mm[Hg] Not Available [facility] 3 05:05:58 Date Recorded Body mass index (BMI) Body height Oxygen saturation Oxygen saturation in Arterial blood by Pulse oximetry Heart rate Body temperature Body weight Systolic blood pressure Diastolic blood pressure Provider Name and Address Organization Details Last Updated DateTime 2 29.3 kg/m2 152.4 cm 98 % 98 % 54 /min 98 [degF] 38161.8 6 g 120 mm[Hg] 80 mm[Hg] Not Available [facility] 3 05:05:58 Date Recorded Body height Body mass index (BMI) Body weight Body temperature Heart rate Systolic blood pressure Diastolic blood pressure Provider Name and Address Organization Details Last Updated DateTime 3 152.4 cm 28.7 kg/m2 68942.8 g 97.4 [degF] 69 /min 150 mm[Hg] 70 mm[Hg] AR Munoz [place] [facility] [place] [employer] [facility] 3 10:31:16 Social History Question Answer Notes LastModified by Organizat ion Details LastModified Time Tobacco Smoking Status Former Smoker Not Available [facility] 09/05/2022 05:01:56 What Is Your Level Of Alcohol Consumption? Occasional [id number] Information not available 09/05/2022 What Is Your Level Of Caffeine Consumption? Moderate [id number] Information not available 09/05/2022 When Did You Quit Smoking? 16+yearssincel astcigarette [id number] Information not available 09/05/2022 What Is Your Relationship Status? [id number] Information not available 09/05/2022 Do You Use Any Illicit Or Recreational Drugs? No [id number] Information not available 09/05/2022 Sex: Unknown Functional Status None recorded. Mental Status None recorded. Family History Nothing Reported. Medical History Condition Response EYE PROBLEMS Y HEART DISEASE/HEART PROBLEMS Y GI PROBLEMS Y Gynecological HistoryNo gynecological history recorded. Obstetrics History GPAL:G 0 P 0 0 0 0 Past Encounters Encounter ID Performer Location Encounter Start Date Encounter Closed Date Diagnosis/Indication Diagnosis SNOMED-CT Code Diagnosis ICD10 Code Diagnosis Note [id number] [facility] [place] [address] [place] [address] 02/06/2021 00:00:00 02/06/2021 17:05:50 [id number] [facility] [place] [address] [place] [address] 06/13/2021 00:00:00 06/13/2021 15:22:01 [id number] [facility] [place] [address] [place] [address] 12/26/2021 00:00:00 12/26/2021 15:28:14 [id number] Cher Villalobos MD [facility] [address] [place] [address] 10/23/2022 10:10:52 10/23/2022 10:53:36 Prediabetes 134307584 R73.03 a1c of 5.8% stable- continue natural insulin [employer] s such as pears, apples, cinnamon, elayne and sweet potatoes to help mobilize his endogenous insulin. Recommende d up to 150 minutes of moderate level activity/e xercise weekly. Hyperparathyroidism 6699 9008 E21.3 Her pth is more elevated however her ionized and serum calcium levels as well as vitamin D remain in normal range- this is consistent with normocalce karosn hyperparat hyroidism- continue to monitor as there is no indication for surgical measures at this time. She is not due for repeat bone density until this upcoming fall. Osteopenia 353589824 M85 .80 Repeat bone density this fall 2022 to monitor for any further bone loss. BP generally runs 120-130 mmHg/70-80 mmHg at home. Spent up to 26 minutes preparing to see the patient (eg, review of tests), obtaining and/or reviewing separately obtained history, performing a medically appropriat e examinatio n and evaluation , counseling and educating the patient, ordering medication s, tests, along with documentin g clinical informatio n in the electronic health record, independen tly interpreti ng results and communicat ing results to the patient. RTC in 6-8 months. Patient was provided a handwritte n lab order which contains our fax number. If she chooses to go outside of the [facility] system to obtain labwork she was advised to provide our fax number and my informatio n to the lab she will be obtaining labwork from in order to have her labs properly forwarded over for me to review so there is no loss of follow up due to use of outside network. She was also advised to contact our clinic informing us that she has completed her labwork so we are aware we will need to reach out to the appropriat e laboratory to request her results be forwarded to us so I might have the ability to review and make further medical decision making in her case. She voiced understand ing. Health Concerns Section Related Observation LastModified by Organization Detai ls LastModified Time None Recorded Concern Status LastModified by Organization Details LastModified Time None Recorded Advance Directives Directive None Recorded Payers Encounter Date Sequence Insurance Name Policy Number Policy Cain Covered Member ID Cain Member ID Guarantor Name 10/23/2022 1 [employer] PPT) [id number] Shefali Mojica [id number] Shefali Mojica Notes Date Note Type Note Provider Name and Address Organization Details Recorded Time 10/23/2022 text/html 87 yo female com es in for follow up in management of prediabetes (A1C of 5.8%) and normocalcemic hyperparathyroidism . To note she has osteopenia She is taking centrum silver and multivitamins. last seen in December at that time we continued natural insulin sensitizers and vitamin D/calcium support. She has no recent falls or fractures. She has overall good energy and focusing on diet and exercise for her control. labs from 10/17/22:a1c 5.8%glucose 100 mg/dLCa 9.6 mg/dLPTH 121 pg/mlTSH of 3.2 uIU/mlFT4 of 0.99 ng/dLvit D 67.9 ng/mLionized calcium 5.2 Cher Villalobos MD [address] [facility], [facility] [address], [place], [address], [facility] 10/23/2022 11:08:56 OBGyn Episode No OBEpisode recorded.
--- OUTSIDE RECORDS SUMMARY | 2024-08-28 10:06 | XMS_ITS | Clinical Summary ---
Author Organization [facility] Address [address] [place] [address] Care Team Providers Care Hearing Aid Fitter Name Role Phone Joseph Whitman MD Primary Care Provider [phone] Allergies Active Allergy Reactions Criticality Noted Date Comments Cephalosporins Hives High 05/18/2009 Ugnvfqgsc-Hogurvfla-Smlaxqlb o n Hives High 05/18/2009 Codeine Hives High 05/18/2009 Hydrocodone Hives High 05/18/2009 Penicillins Hives High 05/18/2009 Sulfa (Sulfonamide Antibiotics) Hives,Shortness of Breath/Wheezing High 05/18/2009 Medications esomeprazole (NEXIUM) 40 mg Oral CpDR Take 40 mg by mouth daily before breakfast. Active aspirin (ALLEN) 81 mg Oral Tab Take 81 mg by mouth daily. Active EX-Ran-Kisrj Acid-Lutein (CENTRUM SILVER) 500-250 mcg Oral Chew Take 1 Tab by mouth daily. Active calcium-vitamin D3-vitamin K (VIACTIV) 500-100-40 mg-unit-mcg Oral Chew Take 1 Tab by mouth daily. Includes vit d 500 mg, vit K 40 mcg. Active azelastine (ASTEPRO) 0.15 % (205.5 mcg) Both Nostril nasal sprayIndication s:Special screening for osteoporosis,Ot her screening mammogram,Abdom inal or pelvic swelling, mass, or lump, other specified site,Vaginal prolapse without mention of uterine prolapse,Rectoc nadiya,Cystocele,D iverticulitis Administer 1 Chestnut in each nostril daily. Active LACTOBACILLUS RHAMNOSUS GG (PROBIOTIC ORAL)Indication s:Special screening for osteoporosis,Ot her screening mammogram,Abdom inal or pelvic swelling, mass, or lump, other specified site,Vaginal prolapse without mention of uterine prolapse,Rectoc nadiya,Cystocele,D iverticulitis Take 1 Tab by mouth daily. Active TOBRADEX 0.3-0.1 % ointment 4 Active ipratropium bromide (ATROVENT) 0.06 % Chestnut, Non-Aerosol 4 Active baclofen (LIORESAL) 10 mg tablet 4 Active pantoprazole (PROTONIX) 40 mg Tablet, Delayed Release (E.C.) 5 Active ciprofloxacin HCl (CIPRO) 500 mg tablet 5 Active Active Problems Patient Care Coordination No te Formatting of this note migh t be different from the original. Primary Care: Joseph Whitman MD Referring Provider: Mauro Uribe MD [address] [place] [id number] Other: Problem Noted Date Diagnosed Date External hemorrhoids without mention of complica tion 12/11/2010 Overview (12/11/2010): Irritation noted when they stick out. Tucks. 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 Updating IMO/ICD9 Code and Description Family History Medical History Relation Name Comments Other Brother 1 Pratik blood clots in lungs, tested positive for Factor 5 Holmen Cancer Brother 2 Stuart prostate Heart Disease Brother 2 Stuart Pancreatic Cancer Brother 2 Stuart Prostate Cancer Brother 2 Stuart Cancer Brother 3 Claudio prostate Prostate Cancer Brother 3 Claudio Healthy Daughter 1 Aspen Healthy Daughter 2 Princess Healthy Daughter 3 Mary Heart Attack Father Stroke Father Unknown Father Heart Attack Maternal Grandfather Heart Disease Maternal Grandfather Other Maternal Grandmother complic ations w/gallstones, Heart Attack Mother Parkinson's Disease Mother Heart Disease Other Yuan-David Heart Surgery Other Yuan-David stints placed Other Other Yuan-David bx on L lung, b enign Other Paternal Grandfather killed in car accident Heart Disease Paternal Grandmother Healthy Son Juan Breast Cancer Neg Hx Ovarian Cancer Neg Hx Relation Name Status Comments Brother 1 Pratik Alive Brother 2 Stuart Alive Brother 3 Claudio Alive Daughter 1 Aspen Alive Daughter 2 Princess Alive Daughter 3 Mary Alive Father Maternal Grandfather Maternal Grandmother Mother Other Boo Alive Paternal Grandfather Paternal Grandmother Son Juan Alive Social History Tobacco Use Types Packs/Day Years Used Date Smoking Tobacco: Former Cigarettes Q uit: 07/08/1981 Smokeless Tobacco: Never Tobacco Cessation:Counseling Given: No Alcohol Use Standard Drinks/Week Comments Yes 0 (1 standard drink = 0.6 oz pur e alcohol) rare Comments No Sex and Gender Information Value Date Recorded Sex Assigned at Not on file 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 Gender Identity Not on file Sexual Orientation Not on file Occupation Industry Job Start Date Job End Date Not on file Not on file Not on file Not on file Not on file Not on file Not on file Not on file Last Filed Vital Signs Vital Sign Reading Time Taken Comments Blood Pressure 138/92 10/04/2014 11:43 AM CDT Pulse 68 11/09/2013 12:01 PM CDT Temperature - - Respiratory Rate - - Oxygen Saturation - - Inhaled Oxygen Concentration - - Weight 78 kg (172 lb) 10/04/2014 11:43 AM CDT Height 152.4 cm (5') 10/04/2014 11:43 AM CDT Body Mass Index 33.59 10/04/2014 11:43 AM CDT Plan of Treatment Health Maintenance Due Date Last Done Comments DTAP/TDAP/TD VACCINES (1 - Tdap) 1954 PNEUMOCOCCAL VACCINE 65+ YEA RS (1 of 1 - PCV) 1987 ZOSTER VACCINE (1 of 2) 1987 UPPER GI ENDOSCOPY 07/08/2011 07/08/2008 RSV VACCINE (60+ or ) (1 - 1-dose 75+ series) 2012 BREAST CANCER SCREENING 11/09/2014 11/10/19 14, 09/04/2012, 08/30/2011, Additional history exists OSTEOPOROSIS SCREENING 11/30/2016 5, 06/26/2012, 06/07/2010, Additional history exists INFLUENZA VACCINE (#1) 2024 Procedures Procedure Name Priority Date/Time Associated Diagnosis Comments XR DEXA BONE DENSITY AXIAL 1 OR MORE SITES Routine 11/30/2014 Screening for osteoporosis MAMMO SCREEN BILAT W OR WO CAD Routine 11/09/2013 10:51 AM CDT Other screening mammogram Diffuse cystic mastopathy from Last 3 Months or Most Recently Relevant to Health Maintenance Results * (ABNORMAL) XR DEXA BONE DENSITY AXIAL 1 OR MORE SITES (11/30/2014) Anatomical Region Laterality Modality Other us Mauro Uribe MD DIAGNOSTIC IMAGING ORDERABLE S Final Result * MAMMO DIGITAL SCREEN BILAT (11/09/2013 10:51 AM CDT) Anatomical Region Laterality Modality Breast Bilateral Mammography 11/09/2013 10:5 1 AM CDT Narrative 11/10/2013 8:07 AM CDT BILATERAL FULL FIELD DIGITAL SCREENING MAMMOGRAM WITH CAD 11/09/13 HISTORY: Routine Screening. TECHNIQUE: Full field digital screening mammography of both breasts were obtained. COMPARISON: August 2012, August 2011 and June 2008 BREAST PARENCHYMAL COMPOSITION: Almost entirely fat FINDINGS: No new dominant masses, suspicious calcifications, parenchymal asymmetry or areas of architectural distortion are identified in either breast. Since the prior study, there has been no significant interval change. The computer aided detection system was utilized. OVERALL ASSESSMENT: BI-RADS category 1: Negative. RECOMMENDATION: Annual mammography is recommended. [facility] [place] Procedure Note Karina Gomez MD - 11/10/2013 BILATERAL FULL FIELD DIGITAL SCREENING MAMMOGRAM WITH CAD 11/09/13 HISTORY: Routine Screening. TECHNIQUE: Full field digital screening mammography of both breasts were obtained. COMPARISON: August 2012, August 2011 and June 2008 BREAST PARENCHYMAL COMPOSITION: Almost entirely fat FINDINGS: No new dominant masses, suspicious calcifications, parenchymal asymmetry or areas of architectural distortion are identified in either breast. Since the prior study, there has been no significant interval change. The computer aided detection system was utilized. OVERALL ASSESSMENT: BI-RADS category 1: Negative. RECOMMENDATION: Annual mammography is recommended. 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
--- OUTSIDE RECORDS SUMMARY | 2024-08-28 10:06 | XMS_ITS | Referral Summary ---
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 Machine Operator Name Role Phone Mike Flaherty MD Primary Care Provider [phone] Allergies Active Allergy Reactions Criticality Noted Date Comments Cefaclor Rash Medium Cephalosporins Hives,Rash Medium 05/18/2009 Uyalnutdk-Rzmzuzomj-Ofsh ocodon Hives Medium 05/18/2009 Codeine Hives Medium 05/18/2009 Reaction: Hives, , Hydrocodone Hives Medium 05/18/2009 Penicillin Hives Medium 05/22/2017 Penicillins Hives,Rash Medium 05/18/2009 Sulfa (Sulfonamide Antibiotics) Anaphylaxis,Hives, Shortness of breath High 05/18/2009 Other reaction(s): breathing difficulty, red generalized rash , Medications aspirin 81 mg tablet Take one by mouth one time per day 0 0 8 Active L. gasseri-B. bifidum-B longum ([employer]) 1.5 billion cell capsule 1 daily 0 2 Active vit C-vit R-gvwbvx-aszd-l utein (PRESERVISION LUTEIN) 226 mg-200 unit -5 [...] D3) 1,000 unit capsule Active vit A-vit I-rgfu-uhmukgua (ZINC, WITH A AND C, LOZENGES) lozenge [...] Pneumococcal Polysaccharide PPV23 03/12/2011 ZOSTER LIVE 04/21/2012 Social History Tobacco Use Types Packs/Day Years Used Date Smoking Tobacco: Former Cigarettes Q uit: 02/26/1984 Smokeless Tobacco: Never Comments:Smoking History Pac ks/day: 0.25 Packs Alcohol Use Standard Drinks/Week Comments No 0 (1 standard drink = 0.6 oz pur e alcohol) Comments No Sex and Gender Information Value Date Recorded Sex Assigned at Not on file 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 Sex 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 Gender Identity Female 08/12/2020 5:16 PM VISUAL TRAINING AIDE Sexual Orientation Not on file Last Filed Vital Signs [...] 12/12/2017 8:45 AM CDT Plan of Treatment Not on file Insurance MEDICARE [facility] MEDICARE Address: [address] [address] [place] [address] [facility] MEDICARE MEDICARE [facility] MED[facility] Address: [address] [address] [place] [address] [facility] MEDICARE [facility] MEDICARE Care Teams Bag Making Machine Operator Relationship Specialty Start Date End Date Mike Flaherty MD PCP - General Family Practice 12/12/23
--- OUTSIDE RECORDS SUMMARY | 2024-08-28 10:06 | XMS_ITS | Continuity of Care Document ---
Author Organization [facility] Address [address] [place] [address] Phone Care Team Providers Care Seasoner Name Role Phone Farshadfaraz TRISTAGitaNikki Unavailable Unavailable Allergies, Adverse Reactions, Alerts Substance Reaction Status Criticality Sulfa (Sulfonamide Antibiotics) breathin g difficulty, red generalized rash Active No Information PENICILLIN hiveshives Active No Information Medications Medication Instructions Dosage Effective Dates (start - stop) Status Comments ipratropium bromide 0.03 % nasal spray spray 1-2 sprays by intranasal route 2 times every day in each nostril - Active loratadine 10 mg tablet take 1 tablet by oral route every day 10 MG - Active Aspirin Low Dose 81 mg tablet,delayed release take 1 tablet by oral route every day 81 MG - Active baclofen 10 mg tablet take 1 tablet by oral route 2 times every day 10 MG - Active Viactiv 500 mg-500 unit-40 mcg chewable tablet - Active cranberry extract 300 mg tablet - Active [employer] 1.5 billion cell capsule - Active Centrum Silver 0.4 mg-300 mcg-250 mcg tablet - Active pantoprazole 40 mg tablet,delayed release take 1 tablet by oral route every day 40 MG - Active PreserVision AREDS 2 250 mg-200 unit-40 mg-1 mg capsule - Active sertraline 25 mg tablet take 1 Tablet by oral route every day 25 MG - Active fluticasone 50 mcg/actuation nasal spray,suspension spray 2 spray by intranasal route every day in each nostril 100 MCG - Active ipratropium bromide 0.03 % nasal spray spray 1-2 sprays by intranasal route 2 times every day in each nostril Dec-13-2017 - No Longer Active Advance Directives Directive Yes / No Effective Date File Name No Information Encounters Encounter Description Practice Location Reason(s) For Visit Diagnoses Date Provider Providers Copied on Encounter [facility], [address], [place], [place], [id number] , tel: [phone] [facility] Non-allergic rhinitisGastro-esop hageal reflux disease without esophagitisAllergy history, penicillin 8 Farshadfaraz PelayoNikki . [address], [id number] , . tel: [phone] Referring Provider: David Sepulveda, [address] [place] [address], [address] . tel:[phone] [facility], [address], [place], [place], [id number] , tel: [phone] [facility] No Information 7 Derick Hernandez. [address] [facility], [address], [id number] , . tel: [phone] [facility], [address], [place], [place], [id number] , tel: [phone] [facility] Cough due to TABITHA inhibitorAdverse effect of angiotensin-convert ing-enzyme inhibitors, initial encounterChoking in adultPost-nasal dripNon-allergic rhinitisAllergy history, penicillin 7 Derick Hernandez. [address], [id number] , . tel: [phone] Referring Provider: Denis Ventura, [address], [place], [address]. tel:[phone] Family History Family Member Type Diagnosis Age At Onset Problem (finding) No family history of As thma Mother Problem (finding) GERD Problem (finding) No family history of Al lermikaes Payers Payer name Insurance type Covered alliance party ID Authoriza tion(s) [facility] MEDICARE ADVANTAGE [id number] Social History Type Description Quantity Date Captured Comments Alcohol Use Details Unknown Caffeine Use Details Unknown Tobacco Use Status No Information Smoking Status Former smoker Sex Female Vital Signs Date / Time: Height Weight BMI Pulse Rate Blood Pressure Temperature Respiratory Rate Body Surface Area Head Circumference Head Circ. Percentile Wt./Osiel. Percentile BMI percentile Pulse Ox Inhaled Ox 2:33 PM 60.00 in 76.657 kg (169.00 lbs) 33.0 1 kg/m eter (2) 65 /min 148/67 mm[Hg] Chief Complaint And Reason For Visit No Information Reason For Referral Reason For Referral No Information History Of Present Illness Encounter Date Complaint History Of Prese nt Illness No Information Functional Status Date Functional Assessmen t No Information Instructions Date Instruction Additional Infor mation No Information Assessments Type Assessment Date No Information Patient Care Teams Name Effective Dates (start - stop) Status Members No Information
--- OUTSIDE RECORDS SUMMARY | 2024-08-28 10:08 | XMS_ITS | Encounter Summary ---
Author Organization [facility] Address 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 [place] [id number] [facility] [address] [address] Mauro Uribe MD [address] [facility] [address] [place] [address] Abdominal or Pelvic Swelling, Mass, or Lump, Other Specified Site Social History Tobacco Use Types Packs/Day Years Used Date Smoking Tobacco: Never Assessed Comments Unknown Sex and Gender Information Value Date Recorded Sex Assigned at Not on file 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 Gender Identity Not on file Sexual Orientation Not on file documented as of this encounter Plan of Treatment Not on file documented as of this encounter Procedures Procedure Name Priority Date/Time Associated Diagnosis Comments CANCER ANTIGEN 125 Routine 11/10/2008 12 :53 PM CDT documented in this encounter Results * CANCER ANTIGEN 125 (11/10/2008 12:53 PM CDT) CA 125 7 <=34 U/mL [facility] Comment: Reference Range: CA-125 </= 34 U/mL (Females) Because the concentration of CA-125 in any given specimen can vary due to differences in assay methods and reagent specificity, values from different assay methods cannot be used interchangeably. CA-125 levels, regardless of value, should not be interpreted as absolute evidence of the presence or absence of disease. CA-125 is not intended for use as a cancer screening test. Performed on [employer] System. Blood specimen (specimen) 11/10/2008 12:53 PM CDT 11/10/2008 12:53 PM CDT us Mauro Uribe MD CHEMISTRY ORDERABLES Final R esult INTERFACE SYSTEM Refer to clinic/hospital department [facility] CLIA# [id number] [address] [place] [address] documented in this encounter Visit Diagnoses Diagnosis Abdominal or pelvic swelling, mass, or lump, other specified site documented in this encounter Care Teams Registration Manager Relationship Specialty Start Date End Date Joseph Whitman MD [address] [place] [address] PCP - General 07/07/08 documented as of this encounter
--- OUTSIDE RECORDS SUMMARY | 2024-08-28 10:08 | XMS_ITS | Encounter Summary ---
Author Organization [facility] Address 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 [place] [address] [facility] [address] [address] Mauro Uribe MD [address] [facility] [address] [place] [address] Postmenopausal Atrophic Vaginitis Social History Tobacco Use Types Packs/Day Years Used Date Smoking Tobacco: Never Assessed Comments Unknown Sex and Gender Information Value Date Recorded Sex Assigned at Not on file 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 Gender Identity Not on file Sexual Orientation Not on file documented as of this encounter Plan of Treatment Not on file documented as of this encounter Procedures Procedure Name Priority Date/Time Associated Diagnosis Comments CERV/VAG CYTOPATH, SUREPATH W/RFLX HPV Routine 11/10/2008 8:22 PM CDT documented in this encounter Results * CERV/VAG CYTOPATH, SUREPATH W/RFLX HPV (11/10/2008 8:22 PM CDT) SOURCE Cervix, Endocervix S [facility] LAST MENSTRUAL PERIOD 1991 [facility] CYTOTECHNOLOGI ST: MVW, CT(ASCP) [facility] Comment: Lab test performed by: [facility] [address] [place] [address] FLORINA BABIN MD PREV PAP: Information not provided [facility] ADEQUACY: ansi Satisfactory for evaluation. Endocervical/trans formation zone component present. [facility] CLINICAL INFORMATION ansi Normal exam Postmenopausal [facility] REPORT STATUS FINAL [facility] PAP INTERP Negative for intraepithelial lesion or malignancy. [facility] PREV BX: Information not provided [facility] Banana Carrier Pap Comment Based on the cytology result, reflex High Risk HPV DNA testing was not performed. [facility] Specimen from uterine cervix (specimen) 11/10/2008 8:22 PM CDT 11/10/2008 8:45 PM CDT us Mauro Uribe MD PATHOLOGY/CYTOLOGY ORDERABLE S Final Result INTERFACE SYSTEM Refer to clinic/hospital department [facility] CLIA# [id number] [address] [place] [address] documented in this encounter Visit Diagnoses Diagnosis Postmenopausal atrophic vaginitis documented in this encounter Care Teams Inserter Relationship Specialty Start Date End Date Joseph Whitman MD [address] [place] [address] PCP - General 07/07/08 documented as of this encounter
[2024-08-28 10:41] LABS: Hematocrit 41.3 % (37.0-47.0); Hemoglobin 12.9 g/dL (12.0-15.0); Mean Corpuscular HGB Conc 31.2 g/dl (32-36); Mean Corpuscular Hemoglobin 29.9 pg (26-34); Mean Corpuscular Volume 95.6 fl (80-100); Mean Platelet Volume 9.1 fl (7.4-10.4); Platelet Count Result 214 k/mm3 (150-375); Red Blood Count 4.32 M/mm3 (4.2-5.4); Red Cell Distribution Width 14.7 % (11.5-14.5); White Blood Count 5.1 K/mm3 (4.5-10.0)
[2024-08-28 10:59] LABS: Alanine Aminotransferase 20 U/L (6-35); Alkaline Phosphatase 65 U/L (38-126); Anion Gap 11 mmol/L (4-12); Aspartate Amino Transferase 25 U/L (14-36); Bilirubin,Total 0.5 mg/dL (0.2-1.3); Blood Urea Nitrogen 18 mg/dL (7-17); Calcium 10.1 mg/dL (8.4-10.2); Carbon Dioxide 25 mmol/L (22-30); Chloride 105 mmol/L (98-107); Cholesterol 185 mg/dL (0-200); Estimated Glomerular Filt Rate 60; Glucose 94 mg/dL (65-110); HDL Direct 61 mg/dL; Potassium 4.5 mmol/L (3.4-5.0); Sodium 141 mmol/L (137-145); Triglycerides 149 mg/dL (<150)
[2024-08-28 11:02] LABS: Hemoglobin A1C 6.1 % (<5.7)
[2024-08-28 11:10] LABS: LDL Cholesterol Direct 67 mg/dL
[2024-08-29 05:32] LABS: CA-125 7 U/mL (<35)
[2024-09-01 20:54] LABS: Almond (F20) IgE <0.10 kU/L; Brazil Nut (f18) <0.10 kU/L; Brazil Nut (f18) Class 0; Cashew Nut (F202) IgE <0.10 kU/L; Cashew Nut (F202) IgE Class 0; Codfish (F3) IgE <0.10 kU/L; Codfish (F3) IgE Class 0; Cow's Milk (F2) IgE <0.10 kU/L; Cow's Milk (F2) IgE Class 0; Egg White (F1) IgE <0.10 kU/L; Egg White (F1) IgE Class 0; Hazelnut (F17) IgE <0.10 kU/L; Hazelnut (F17) IgE Class 0; Macadamia Nut (rf345) <0.10 kU/L; Macadamia Nut (rf345) Class 0; Peanut (F13) IgE <0.10 kU/L; Peanut (F13) IgE Class 0; Salmon (F41) IgE <0.10 kU/L; Salmon (F41) IgE Class 0; Scallop (F338) IgE <0.10 kU/L; Scallop (F338) IgE Class 0; Sesame Seed <0.10 kU/L; Shrimp (F24) IgE <0.10 kU/L; Soybean (F14) IgE <0.10 kU/L; Soybean (F14) IgE Class 0; Tuna (F40) <0.10 kU/L; Tuna (F40) Class 0; Walnut (F256) IgE <0.10 kU/L; Walnut (F256) IgE Class 0; Wheat (F4) IgE <0.10 kU/L; Wheat (F4) IgE Class 0
== END 2024-08-28 09:27 | disposition home or self-care (01) ==
PROVIDERS: PCP Family Medicine; Visit Provider Family Medicine
DX: R97.1 Elevated cancer antigen 125 [CA 125] (principal); H35.3190 Nonexudative age-related macular degeneration, unspecified eye, stage unspecified; I50.9 Heart failure, unspecified; R42 Dizziness and giddiness; R73.03 Prediabetes; E34.9 Endocrine disorder, unspecified; E21.3 Hyperparathyroidism, unspecified; R49.0 Dysphonia; N83.209 Unspecified ovarian cyst, unspecified side; N83.201 Unspecified ovarian cyst, right side
CPT/HCPCS: 36415; 80053; 80061; 83036; 85027; 86304

== ENCOUNTER 2024-08-31 08:31 | Emergency (ER) | payer MEDICARE, SELFPAY ==
--- NOTE | 2024-08-31 08:39 | ED_ITS ---
HPI - URI/Sore Throat General Chief Complaint: Upper Respiratory Infection Stated Complaint: Upper Respiratory Infection Time Seen by Provider: 08/31/24 08:43 Source: patient, RN notes reviewed and old records reviewed Mode of arrival: ambulatory Limitations: no limitations History of Present Illness HPI Narrative: 89-year-old female presents to the [facility] with a 3 day history of a dry cough. Denies edema, chest pain, shortness of breath. Denies fevers. Denies congestion. No treatment prior to arrival Onset (ago): day(s) (3) Treatments prior to arrival: none Related Data Home Medications ?Medication ?Instructions ?Recorded ?Confirmed ?Last Taken ?Type Lactobacills gasseri-Bifidobac 1 cap PO DAILY 05/01/20 04/23/24 05/01/20 08:00 History bifidum,longum 1.5 billion cell capsule ([employer]) aspirin 81 mg tablet,delayed 81 mg PO DAILY 05/01/20 04/23/24 05/01/20 08:00 History release calcium 500 mg-vitamin D3 100 1 tablet PO BID 05/01/20 04/23/24 05/01/20 08:00 History unit-vitamin K 40 mcg chewable tablet cranberry 400 mg capsule 400 mg PO DAILY 05/01/20 04/23/24 05/01/20 08:00 History glucosamine sulf dipot 2 cap PO BID 05/01/20 04/23/24 05/01/20 08:00 History chlr,msm,chond 550 mg-C 30 mg-genevieve 1 mg capsule (Glucosamine Chondroitin) bcuslejg-jvd-ffmxs acid 0.4 1 tablet PO DAILY 05/01/20 04/23/24 05/01/20 08:00 History mg-lycopene 300 mcg-lutein 250 mcg tablet (Centrum Silver) vit C 250 mg-vit E 90 mg-zinc 40 1 tablet PO BID 05/01/20 04/23/24 05/01/20 08:00 History mg-copper 1 bi-skazhn-pdjjqu capsule (PreserVision AREDS-2) famotidine 20 mg tablet (Acid-Pep) 20 mg PO DAILY 08/31/24 Unknown History fluticasone propionate 50 1 spray intranasal ONCE 08/31/24 Unknown History mcg/actuation nasal spray,suspension (Flonase Allergy Relief) gabapentin 100 mg capsule mg 08/31/24 Unknown History Allergies Allergy/AdvReac Type Severity Reaction Status Date / Time Sulfa (Sulfonamide Allergy Severe Anaphylaxis Verified 08/31/24 08:46 Antibiotics) Cephalosporins AdvReac Mild Hives Verified 08/31/24 08:46 codeine AdvReac Mild Hives Verified 08/31/24 08:46 hydrocodone AdvReac Mild Hives Verified 08/31/24 08:46 Penicillins AdvReac Mild Hives Verified 08/31/24 08:46 Review of Systems Review of Systems: All systems reviewed & are unremarkable except as noted in HPI and below Constitutional: Constitutional: Reports no additional constitutional complaints ENT: Reports system reviewed and no additional complaints, except as documented Cardiovascular: Cardiovascular: Reports no additional cardiovascular complaints, Denies chest pain and Denies dyspnea Respiratory: Respiratory: Reports as per HPI, Denies chest congestion, Reports cough and Denies dyspnea Musculoskeletal: Musculoskeletal: Reports no additional musculoskeletal complaints Integumentary/Breasts: Skin/Breast: Reports system reviewed and no additional complaints, except as docu [facility] Past Medical History Medical History Macular degeneration on ared History of non-ST elevation myocardial infarction (NSTEMI) Congestive heart failure in 2017 she was noted to have impaired diastolic relaxation grade 1 any ejection fraction at 36%. However the patient stated she no longer has a need for cardiac rehab nurse. Thumb pain Trigger finger Elevated parathyroid hormone Gastro-esophageal reflux disease without esophagitis (04/03/19) Generalized anxiety disorder Hypercalcemia Lump in neck Plantar fasciitis of right foot Postmenopausal Takotsubo cardiomyopathy Surgical History Surgical History Hx of appendectomy Cataract extraction status H/O: hysterectomy H/O cardiac catheterization Family History Family History Sibling Patient's brother is in good health 1 brother is healthy but the other brother from lung cancer Lung cancer 1 brother is healthy and the other brother from lung cancer Mother Family history of Parkinson's disease Patient's mother is Father Family history of congestive heart failure Patient's father is Other Family history of malignant neoplasm Social History Social History (Reviewed 08/31/24 @ 11:54 by ROSA Gupta Social History: the patient stated that she lives with her and he is a durable power state's attorney for healthcare. The patient stated that she quit smoking about 37 years ago. She has 4 children. 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 No alcohol marijuana or illicit drugs. Smoking packs per day: 0.5 Smoking cigarettes per day: 10.0 Years smoked: 20 Smoking pack-years: 10.00 Smoking status: Former smoker Smoking end date: 12/25/81 Alcohol intake: never Substance use: never Substance use type: does not use Lack of Transportation: No Lack of Food: Never True Current Housing: I Have Housing Concerned About Future Housing: No Difficulty Paying Gas/Electric Bills: No Difficulty Paying for Meds: No Currently Unemployed: No Education: High School Diploma/GED Difficulty w/ Childcare or Family Care: No Living arrangements: with family Occupation/Education: retired Gender identity (if verbalized by the patient): Female Spiritual care concerns: No Comments At the time of my signature, I reviewed and agree with the nursing past medical, surgical, social, and family history. There is no relevant family history pertinent to the patient complaint. Exam Const: General: cooperative, healthy appearing, comfortable, no acute distress, well developed, alert and well nourished Nutritional Appearance: well nourished Orientation/consciousness: patient oriented x3 Limitations: no limitations HENMT: Head: normal to inspection Ears: hearing grossly normal bilaterally, external ears normal, TM's normal bilaterally, EAC's normal, mastoids normal and no periauricular adenopathy Mouth: Yes Normal oral and palatal mucosa present, Yes lip normal, Yes tongue normal and Yes moist mucous membranes Throat: posterior oropharynx normal, uvula midline and no uvular edema Eyes: General: appearance normal, both eyes and all related structures Alignment and Position: alignment normal Neck: Neck: normal visual inspection, full ROM, no lymphadenopathy and no meningeal signs Chest: Chest palpation & inspection: normal inspection of the chest Resp: Effort & Inspection: normal respiratory effort and able to speak in complete sentences Auscultation: clear to auscultation bilaterally, no crackles, no rales, no rhonchi and no wheezes Cardio: Rate: regular rate Skin: General skin exam: normal color and no rashes or lesions noted Neuro: General: patient oriented x3, gait normal, moves all extremities and no meningeal signs Cognition (Neuro): normal cognition Speech: normal speech Gait exam (Neuro): Normal gait present Extrem: General: normal to inspection, full ROM, capillary refill normal and normal gait Psych: Appearance: grossly normal and well kempt Mental Status: mental status grossly normal Speech and movement: Normal speech and movement present and Clear speech present Affect: normal affect Attitude: cooperative Course Course Level of Care: Express Care Visit Vital Signs Vital signs: Vital Signs Temperature 97.8 F 08/31/24 08:51 Pulse Rate 80 08/31/24 08:51 Respiratory Rate 18 08/31/24 08:51 Blood Pressure 138/62 08/31/24 08:51 Pulse Oximetry 98 08/31/24 08:51 Oxygen Delivery Room Air 08/31/24 08:51 Temperature 97.8 F 08/31/24 08:51 Pulse Rate 80 08/31/24 08:51 Respiratory Rate 18 08/31/24 08:51 Blood Pressure 138/62 08/31/24 08:51 Pulse Oximetry 98 08/31/24 08:51 Oxygen Delivery Room Air 08/31/24 08:51 Reviewed MDM - URI/Sore Throat MDM Narrative Medical decision making narrative: Patient sitting in exam room. Nontoxic, vitals stable. Patient in no acute distress. Patient's only complaint is a cough for 3 days. No treatment prior to arrival. Flu and COVID is negative. Patient's vitals are within defined limits. No acute findings noted on exam Patient appropriate for outpatient treatment with close follow-up. Discussed qtob-igk-rnowpxg treatment items. Discharge instructions reviewed with patient, as well as provided in writing per nursing staff. The instructions also include specific and strict return/GO TO THE ER as well as f/u information. All questions have been answered, and the patient deny any further questions with discharge and discharge plan. Some parts of this dictation were generated by voice recognition software and may contain typographical and/or grammatical inaccuracies. Differential Diagnosis Differential diagnosis: Likely upper respiratory infection, otitis media, sinusitis, viral infection, bronchitis and influenza Lab Data Labs: Lab Results 08/31/24 Range/Units 09:15 POC Influenza A Ag Negative (Negative) POC Influenza B Ag Negative (Negative) POC SARS CoV-2 Ag Negative (Negative) Reviewed Critical Care Time Critical Care Time Critical Care Time: No Discharge Plan Discharge Clinical Impression: Viral upper respiratory tract infection with cough Patient Disposition: Home, Self-Care Condition: Stable Instructions: Antibiotic Form, Upper Respiratory Infection (ED), Acute Cough (ED) Additional Instructions: Your rapid COVID test were negative Your rapid flu test was negative Your symptoms are likely due to a viral illness, which is not treated with antibiotics. Typically viral infections last 7-10 days, can linger for couple of weeks. It is very important to treat your symptoms. Drink plenty of water, Gatorade, Pedialyte, ice pops or Jell-O. -Alternate Tylenol and Motrin per package directions for fever or pain. You can alternate every 4 hours -Antihistamine medication such as Zyrtec/Claritin/Nela during the day can help improve symptoms. -doing daily nasal irrigations can help relieve pressure your sinuses. Things like a Neti pot -Use Flonase twice a day for 5 days then daily to help reduce the inflammation and dry up your sinuses. -You can also use Coricidin HBP or Mucinex. Be sure to drink plenty of water with this medication at least 8 ounces with every dose and it is important to drink 8 to 10 glasses of water per day. Water is a natural decongestant -Eat and drink things that are easy to swallow, like tea or soup, or popsicles. -Oral rinses such as: Salt water gargles and/or may use topical anesthetic (eg. Chloraseptic spray) or lozenges to relieve dryness or throat pain). -Frequent hand washing or hand gang knife fish chopper is one of the best ways to prevent spread of infection. -Using a vaporizer or humidifier at night will also help thin secretions and help with coughing up phlegm. -Follow up with primary care provider in 7-10 days if condition is not improving - For new or worsening symptoms go directly to the nearest ER Patient Language: Upper Sorbian Prescriptions: No Action gabapentin 100 mg capsule famotidine [Acid-Pep] 20 mg tablet 20 mg PO DAILY fluticasone propionate [Flonase Allergy Relief] 50 mcg/actuation spray,suspension 1 spray intranasal ONCE Rx Instructions: administer into each nostril baclofen 10 mg tablet See Rx Instructions .ROUTE .COMPLEX Qty: 180 1RF Dose Instruction: TAKE 1 TABLET BY MOUTH EVERY NIGHT AT BEDTIME AND EVERY MORNING NEEDED FOR LEG CRAMPS Rx Instructions: TAKE 1 TABLET BY MOUTH EVERY NIGHT AT BEDTIME AND EVERY MORNING NEEDED FOR LEG CRAMPS aspirin 81 mg Tablet,Delayed Release (Dr/Ec) 81 mg PO DAILY cranberry 400 mg Capsule 400 mg PO DAILY Centrum Silver 0.4-300-250 mg-mcg-mcg Tablet 1 tablet PO DAILY calcium-vitamin D3-vitamin K 500-100-40 mg-unit-mcg Tablet,Chewable 1 tablet PO BID [employer] 1.5 billion cell Capsule 1 cap PO DAILY PreserVision AREDS-2 [phone] op-ogle-wj-mg Capsule 1 tablet PO BID Glucosamine Chondroitin 550-30-1 mg Capsule 2 cap PO BID meclizine 12.5 mg Tablet 12.5 mg PO QID PRN (Reason: Dizziness) Qty: 20 0RF sertraline 25 mg tablet See Rx Instructions .ROUTE .COMPLEX Qty: 90 0RF Dose Instruction: TAKE 1 TABLET BY MOUTH DAILY Rx Instructions: TAKE 1 TABLET BY MOUTH DAILY pantoprazole 40 mg tablet,delayed release (DR/EC) See Rx Instructions .ROUTE .COMPLEX Qty: 90 0RF Dose Instruction: TAKE 1 TABLET BY MOUTH EVERY MORNING Rx Instructions: TAKE 1 TABLET BY MOUTH EVERY MORNING Follow-up/Referrals: Mike Flaherty MD [Primary Care Provider] - 2 Weeks ([facility] care follow up) Time of Disposition: 09:18
--- OUTSIDE RECORDS SUMMARY | 2024-08-31 08:49 | XMS_ITS | Referral Summary ---
Author Organization [facility] Address [address] [place] [address] Care Team Providers Care Search Director Name Role Phone Mike Flaherty MD Primary Care Provider [phone] Allergies Active Allergy Reactions Criticality Noted Date Comments Cefaclor Rash Medium Cephalosporins Hives,Rash Medium 05/18/2009 Vfrnaikoo-Qocyvmhsc-Afos ocodon Hives Medium 05/18/2009 Codeine Hives Medium 05/18/2009 Reaction: Hives, , Hydrocodone Hives Medium 05/18/2009 Penicillin Hives Medium 05/22/2017 Penicillins Hives,Rash Medium 05/18/2009 Sulfa (Sulfonamide Antibiotics) Anaphylaxis,Hives, Shortness of breath High 05/18/2009 Other reaction(s): breathing difficulty, red generalized rash , Medications aspirin 81 mg tablet Take one by mouth one time per day 0 0 8 Active L. gasseri-B. 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 Gender Identity Female 08/12/2020 5:16 PM ARCHITECTURAL SUPERINTENDENT Sexual Orientation Not on file Last Filed [...] Treatment Not on file Insurance MEDICARE SOLUTIONS [facility] MEDICARE Address: [address] [address] [place] [address] [facility] MEDICARE MEDICARE SOLUTIONS [facility] MEDICARE Address: [address] [address] [place] [address] [facility] MEDICARE [facility] MEDICARE Care Teams Search Director Relationship Specialty Start Date End Date Mike Flaherty MD PCP - General Family Practice 12/12/23
--- OUTSIDE RECORDS SUMMARY | 2024-08-31 08:49 | XMS_ITS | Continuity of Care Document ---
Author Organization [email or web address] Address [address] [place] [address] Phone Care Team Providers Care Boat Finisher Name Role Phone Farshadfaraz TRISTAGitaNikki Unavailable Unavailable [...] cranberry extract 300 mg tablet - Active [employer] 1.5 billion cell capsule - Active [...] Diagnoses Date Provider Providers Copied on Encounter [facility], [address], [place], [place], [id number] , tel: [phone] Carlos Allergy Non-allergic rhinitisGastro-esop hageal reflux disease without esophagitisAllergy history, penicillin 8 Farshadfaraz PelayoNikki . [address], [id number] , . tel: [phone] Referring Provider: David Sepulveda, [address] [place] [address], [address] . tel:[phone] [facility], [address], [place], [place], [id number] , tel: [phone] Carlos Allergy No Information 7 Derick Hernandez. [address] [facility], [address], [id number] , . tel: [phone] [facility], [address], [place], [place], [id number] , tel: [phone] Carlos Allergy Cough due to TABITHA inhibitorAdverse effect of angiotensin-convert ing-enzyme inhibitors, initial encounterChoking in adultPost-nasal dripNon-allergic rhinitisAllergy history, penicillin 7 Derick Hernandez. [address], [id number] , . tel: [phone] Referring Provider: Denis Ventura, [address], [address]. tel:[phone] Family History Family Member Type Diagnosis Age At Onset Problem (finding) No family history of As thma Mother Problem (finding) GERD Problem (finding) No family history of Al lermikaes Payers Payer name Insurance type Covered republican ID Authoriza tion(s) [facility] PPO GROUP MEDICARE ADVANTAGE [id number] Social History Type Description Quantity Date Captured [...]
--- OUTSIDE RECORDS SUMMARY | 2024-08-31 08:49 | XMS_ITS | Clinical Summary ---
Author Organization [facility] Address [address] [place] [address] Care Team Providers Care Equipment Superintendent Name Role Phone Mike Flaherty MD Primary Care Provider [phone] Allergies Active Allergy Reactions Criticality Noted Date Comments Cefaclor Rash Medium Cephalosporins Hives,Rash Medium 05/18/2009 Gsechqofn-Ggigsoier-Nepg ocodon Hives Medium 05/18/2009 Codeine Hives Medium 05/18/2009 Reaction: Hives, , Hydrocodone Hives Medium 05/18/2009 Penicillin Hives Medium 05/22/2017 Penicillins Hives,Rash Medium 05/18/2009 Sulfa (Sulfonamide Antibiotics) Anaphylaxis,Hives, Shortness of breath High 05/18/2009 Other reaction(s): breathing difficulty, red generalized rash , Medications aspirin 81 mg tablet Take one by mouth one time per day 0 0 8 Active L. gasseri-B. 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
--- OUTSIDE RECORDS SUMMARY | 2024-08-31 08:49 | XMS_ITS | Data Portability ---
Author Organization [place] [facility],, Jduith kessler Address [address] [place] [address] Assessment Encounter Date Assessment Date Assessment LastModified [...] e 5 mg tablet 2014 015 [id number], [address], [place], [place], [id number], 5 17:39:51 ipratro pium bromide 42 mcg (0.06 %) nasal spray 2012 013 [facility], [address] [place] [address], [address], 3 03:09:36 Patient TargetsNo targets recorded. Patient Instructions Encounter Date Encounter Id Patient Instructions Last Modified By Organization Details Last Modified Time 01/05/2013 [id number] Patient has had a modest response to it. Ectropion bromide nasal spray 0.03% I think a fight, double it to 0.06%. She may have continued improvement. [email or web address] Not available 01/05/2013 12:40:21 10/05/2014 [id number] rhinitis: care instructions [email or web address] Not available 10/05/2014 17:39:51 Reason for Referral None Reported. Problems Name Problem SNOMED Code Status Onset Date Resolution Date Notes Provider Name and Address Organization Details Recorded Time Gastroesophage al reflux disease 255815228 Active MD [address], [place], [address] , [place] [facility], 5 16:36:13 Chronic rhinitis 68335303 Active MD [address], [place], [address] , [place] [facility], 5 17:39:51 Problem Notes None recorded. Medical Equipment None Reported. Allergies Allergen ID Allergen Name Allergen Category Reaction Reaction Severity Criticality Documentation Date Start Date Code Code System Note Provider Name and Address Organization Details Recorded Time 9725 Product containin g penicilli n (product) medicatio n other mild Not available 01/05/2013 78424 8001 SNOMED Maria birch, [place] [facility], 3 12:06:47 9726 Substance with sulfonami de structure and antibacte rial mechanism of action (substanc e) medicatio n other mild Not available 01/05/2013 18495 8003 SNOMED Maria birch, [place] [facility], 3 12:06:47 9727 codeine medicatio n other mild Not available 01/05/2013 2670 RxNorm Maria birch [place] [facility], 3 12:06:47 9728 Product containin g cephalosp lyle (product) medicatio n other mild Not available 01/05/2013 99174 9009 SNOMED Maria birch, [place] [facility] [...] bromide 21 mcg (0.03 %) nasal spray [place] 2 sprays twice a day by intranasal [...] Address Organization Details Last Updated DateTime 5 85640.5 5631 g 30.8 kg/m2 154.94 cm 98.2 [degF] 158 mm[Hg] 76 mm[Hg] Leonie Vivar [place] [facility], 5 16:17:10 Date Recorded Body height Body weight Body temperature Body mass index (BMI) Systolic blood pressure Diastolic blood pressure Provider Name and Address Organization Details Last Updated DateTime 3 154.94 cm 40285.3 3342 g 98 [degF] 31.4 kg/m2 124 mm[Hg] 66 mm[Hg] Maria Garcia [place] [facility], 3 12:03:43 Social History Question Answer Notes LastModified by Organizat ion Details LastModified Time Tobacco Smoking Status Former Smoker Not Available [employer] 05/10/2020 03:24:57 What Is Your Level Of Alcohol Consumption? Occasional [id number] Information not available 05/10/2020 Marital Status [email or web address] Informatio n not available 01/05/2013 Sex: Unknown Functional Status None recorded. Mental Status None recorded. Family History Relationship Description Onset Age of this Age Resolved Age Notes LastModified by Organization Details LastModified Time Mother Old-age 94 [email or web address] Not available 0 10/05/2014 16:17:52 Father Congestive heart failure 84 [email or web address] Not available 2014 16:17:52 Medical History Condition Response Diabetes N Anxiety Disorder N Coronary Artery Disease N Gout N Arthritis N Kidney Stones N Hyperthyroidism N Tuberculosis N Cancer N Diverticulitis N Stroke N Asthma N Allergies Y COPD N Depression N Stress N Hypothyroidism N GERD/Reflux Y High Cholesterol N Liver Disease N Heart Disease N Pulmonary Embolism N Fibromyalgia N Hypertension N Osteoporosis N Kidney Disease N Gynecological HistoryNo gynecological history recorded. Obstetrics History GPAL:G 0 P 0 0 0 0 Past Encounters Encounter ID Performer Location Encounter Start Date Encounter Closed Date Diagnosis/Indication Diagnosis SNOMED-CT Code Diagnosis ICD10 Code Diagnosis Note [id number] Deann Wallis OFFICE [address] [place] [phone] 01/05/2013 11:18:28 01/05/2013 14:19:32 [id number] Steven rivers MD OFFICE [address] [place] [phone] 10/05/2014 15:57:28 10/05/2014 16:51:02 Chronic rhinitis 66740474 Health Concerns Section Related Observation LastModified by Organization Detai ls LastModified Time None Recorded Concern Status LastModified by Organization Details LastModified Time None Recorded Advance Directives Directive None Recorded Payers Encounter Date Sequence Insurance Name Policy Number Policy Cain Covered Member ID Cain Member ID Guarantor Name 01/05/2013 1 [place] Shefali Mojica [id number] Shefali Mojica 01/05/2013 1 [facility] [id number] Shefali Mojica [id number] Shefali Mojica 10/05/2014 1 [facility] (MEDICARE REPLACEMENT/A DVANTAGE - PPO) [id number] Shefali Mojica [id number] Shefali Mojica Notes Date Note Type Note [...] Steven P. MD [address], [place], [address], [place] [facility], 01/05/2013 [...] sinus infections. MD [address], [place], [address], [place] [facility], 10/05/2014 17:40:03 OBGyn Episode No OBEpisode recorded.
[2024-08-31 08:51] VITALS: BP 138/62; PULSE 80; RESP 18; TEMP 36.6; O2SAT 98
--- OUTSIDE RECORDS SUMMARY | 2024-08-31 08:51 | XMS_ITS | Encounter Summary ---
Author Organization [facility] Address [address] [facility] [address] [place] [address] Care Team Providers Care Slitter Processed Film Name Role Phone Denis Ventura MD Primary Care Provider [phone] Denis Ventura MD Primary Care Provider [phone] Royer Whelan DO Primary Care Provider [phone] Royer Whelan DO Primary Care Provider [phone] Royer Whelan DO Unavailable Osman Gaspar MD Primary Care Provider [phone] Mike Flaherty MD Primary Care Provider [phone] Encounter Details Date Type Department Care Team (Late st Contact Info) Description 07/12/2016 Orders Only [facility] ProviderStefany MD [address] [place] [address] Social History Tobacco Use Types Packs/Day Years Used Date Smoking Tobacco: Former Comments:Smoking History Pac ks/day: 0.25 Packs Alcohol Use Standard Drinks/Week Comments No 0 (1 standard drink = 0.6 oz pur e alcohol) Comments Unknown Sex and Gender Information Value Date Recorded Sex Assigned at Not on file 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
--- OUTSIDE RECORDS SUMMARY | 2024-08-31 08:51 | XMS_ITS | Encounter Summary ---
Author Organization [facility] Address [address] [place] [address] Care Team Providers Care Broaching Machine Set Up Operator Name Role Phone Joseph Whitman MD Primary Care Provider Encounter Details Date Type Department Care Team (Latest Contact Info) Description 11/10/2008 Outpatient Historical [facility] DOCK OPERATIONS SUPERVISOR - Medical [place] [address] [facility] [address] [address] Mauro Uribe MD [address] [facility] [address] [place] [address] Abdominal or Pelvic Swelling, Mass, or Lump, Other Specified Site Social History Tobacco Use Types Packs/Day Years Used Date Smoking Tobacco: Never Assessed Comments Unknown Sex and Gender Information Value Date Recorded Sex Assigned at Not on file 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 Gender Identity Not on file Sexual Orientation Not on file documented as of this encounter Plan of Treatment Not on file documented as of this encounter Procedures Procedure Name Priority Date/Time Associated Diagnosis Comments CANCER ANTIGEN 125 Routine 11/10/2008 12 :53 PM CDT documented in this encounter Results * CANCER ANTIGEN 125 (11/10/2008 12:53 PM CDT) CA 125 7 <=34 U/mL [facility] Comment: Reference Range: CA-125 </= 34 [...] esult INTERFACE SYSTEM Refer to clinic/hospital department [facility] CLIA# [id number] [address] [place] [address] documented in this encounter Visit Diagnoses Diagnosis Abdominal or pelvic swelling, mass, or lump, other specified site documented in this encounter Care Teams Broaching Machine Set Up Operator Relationship Specialty Start Date End Date Joseph Whitman MD [address] [place] [address] PCP - General 07/07/08 documented as of this encounter
--- OUTSIDE RECORDS SUMMARY | 2024-08-31 08:51 | XMS_ITS | Encounter Summary ---
Author Organization [facility] Address [address] [place] [address] Care Team Providers Care Military Communications Specialist Name Role Phone Joseph Whitman MD Primary Care Provider [phone] Encounter Details Date Type Department Care Team (Latest Contact Info) Description 11/10/2008 Outpatient Historical [facility] AUDIT OFFICER - Medical [place] [address] [facility] [address] [address] Mauro Uribe MD [address] [facility] [address] [place] [address] Postmenopausal Atrophic Vaginitis Social History Tobacco Use Types Packs/Day Years Used Date Smoking Tobacco: Never Assessed Comments Unknown Sex and Gender Information Value Date Recorded Sex Assigned at Not on file Legal Sex Female 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 Gender Identity Not on file Sexual Orientation Not on file documented as of this encounter Plan of Treatment Not on file documented as of this encounter Procedures Procedure Name Priority Date/Time Associated Diagnosis Comments CERV/VAG CYTOPATH, SUREPATH W/RFLX HPV Routine 11/10/2008 8:22 PM CDT documented in this encounter Results * CERV/VAG CYTOPATH, SUREPATH W/RFLX HPV (11/10/2008 8:22 PM CDT) SOURCE Cervix, Endocervix S [facility] LAST MENSTRUAL PERIOD 1991 [facility] CYTOTECHNOLOGI ST: MVW, CT(ASCP) [facility] Comment: Lab test performed by: [facility] [address] [place] [address] FLORINA BABIN MD PREV PAP: Information not provided [facility] ADEQUACY: ansi Satisfactory for evaluation. Endocervical/trans formation zone component present. [facility] CLINICAL INFORMATION ansi Normal exam Postmenopausal [facility] REPORT STATUS FINAL [facility] PAP INTERP Negative for intraepithelial lesion or malignancy. [facility] PREV BX: Information not provided [facility] Machine Boss Pap Comment Based on the cytology result, reflex High Risk HPV DNA testing was not performed. [facility] Specimen from uterine cervix (specimen) 11/10/2008 8:22 PM CDT 11/10/2008 8:45 PM CDT us Mauro Uribe MD PATHOLOGY/CYTOLOGY ORDERABLE S Final Result INTERFACE SYSTEM Refer to clinic/hospital department [facility] CLIA# [id number] [address] [place] [address] documented in this encounter Visit Diagnoses Diagnosis Postmenopausal atrophic vaginitis documented in this encounter Care Teams Military Communications Specialist Relationship Specialty Start Date End Date Joseph Whitman MD [address] [place] [address] PCP - General 07/07/08 documented as of this encounter
--- OUTSIDE RECORDS SUMMARY | 2024-08-31 08:51 | XMS_ITS | Data Portability ---
Author Organization [facility] [employer], Main Office Address [address] [place] [address] Assessment No assessment recorded. Plan of Treatment Reminders Order Date Submit Date Provider Last Modified By Organization Details Last Modified Time Details Appointments None recorded. Lab calcium, ionized, blood [address] [place] [address] (Lab), [address] [place] [address], [phone], 3 10:51:29 T4, free, serum [address] [place] [address] (Lab), [address] [place] [address], [address], 3 10:51:29 PTH (parathyr oid hormone), intact, serum or plasma [address] [place] [address] (Lab), [address] [place] [address], [address], 3 10:51:29 phosphoru s, serum or plasma [address] [place] [address] (Lab), [address] [place] [address], [address], 3 10:51:29 TSH, serum or plasma [address] [place] [address] (Lab), [address] [place] [address], [address], 3 10:51:29 HbA1c (hemoglob in A1c), blood [address] (Lab), [address] [facility] [address] [facility], [place], [address], 10:51:29 CMP, serum or plasma [address] (Lab), [address] [facility] [address] [place] [address], [address], 10:51:29 Referral None recorded. Procedures None recorded. Surgeries None recorded. Imaging bone density 2022 023 [facility] (Imaging), [address] [place] [address], [address], 11:10:25 Medication Orders None recorded. Patient TargetsNo targets recorded. Patient InstructionsNo instructions recorded. Reason for Referral None Reported. Results Created Date Observation Date Name Description Value Unit Range Abnormal Flag Note LastModifiedBy Organization Detail LastModifiedTime 05/16/20 21 05/16/2021 US, thyro id No observ ation record ed. [id number] [place] [address] (Imaging) [address] [place] [address], [address], 09/05/2022 05:18:19 05/17/20 21 05/16/2021 bone densi ty No observ ation record ed. [id number] [place] [address] (Imaging) [address] [place] [address], [address], 09/05/2022 05:18:19 05/26/20 21 05/16/2021 bone densi ty No observ ation record ed. [id number] [place] [address] (Imaging) [address] [place] [address], [address], 09/05/2022 05:18:19 05/26/20 21 05/16/2021 bone densi ty No observ ation record ed. [id number] [place] [address] (Imaging) [address] [place] [address], [address], 09/05/2022 05:18:19 05/26/20 21 05/16/2021 bone densi ty No observ ation record ed. [id number] [facility] (Imaging) [facility] [address] [facility], [place], [address], 09/05/2022 05:18:19 05/26/20 21 05/16/2021 bone densi ty No observ ation record ed. [id number] [facility] (Imaging) [address] [place] [address] [address] [facility], [place], [address], 09/05/2022 05:18:19 05/26/20 21 05/16/2021 bone densi ty No observ ation record ed. [id number] [place] [address] (Imaging) [address] [place] [address] [place] [address], [address], 09/05/2022 05:18:19 05/26/20 21 05/16/2021 bone densi ty No observ ation record ed. [id number] [facility] (Imaging) [address] [place] [address], [address], 09/05/2022 05:18:19 Result Notes None recorded. Problems Name Problem SNOMED Code Status Onset Date Resolution Date Notes Provider Name and Address Organization Details Recorded Time Prediabetes 291015025 Active 2022 Cher Villalobos MD [address], [place], [address], [employer] 3 10:46:37 Hyperparathyro idism 06973608 Active 2022 Cher Villalobos MD [address], [place], [address], [employer] 3 10:46:56 Osteopenia 040928266 Active 2022 Cher Villalobos MD [address], [place], [address], [employer] [facility] 3 10:47:36 Problem Notes None recorded. Procedures Surgical History Date Name Laterality Status Provider Name and Address Organization Details Recorded Time release of trigger finger completed Not Available [facility] 09/05/2022 05:05:00 tooth extraction completed Not Available [facility] 09/05/2022 05:05:00 Breast Biopsy completed Not Available [facility] 09/05/2022 05:05:00 Appendectomy [facility] 09/05/2022 05:05:00 Hysterectomy completed [facility] 09/05/2022 05:05:00 Imaging Results Imaging Date Name Status LastModified by Organiz ation Details LastModified Time 05/16/2021 bone density completed MIGRATION. [facility] (Imaging) [address] [place] [address], [address], 09/05/2022 05:18:19 05/16/2021 US, thyroid completed MIGRATION. [facility] (Imaging) [address] [place] [address], [address], 09/05/2022 05:18:19 05/16/2021 bone density completed MIGRATION. [facility] (Imaging) [address] [place] [address], [address], 09/05/2022 05:18:19 05/16/2021 bone density completed MIGRATION. [facility] (Imaging) [address] [place] [address], [address], 09/05/2022 05:18:19 05/16/2021 bone density completed MIGRATION. 026 [facility] (Imaging) [address] [place] [address], [address], 09/05/2022 05:18:19 05/16/2021 bone density completed MIGRATION. [facility] (Imaging) [facility] [address], [address], 09/05/2022 05:18:19 05/16/2021 bone density completed [id number] 30 026 [facility] (Imaging) [address] [facility] [address] [place] [address], [address], 09/05/2022 05:18:19 05/16/2021 bone density completed [id number] 30 026 [facility] (Imaging) [address] [facility] [address], [address], 09/05/2022 05:18:19 Procedure Notes None recorded. Medical Equipment None Reported. Allergies Allergen ID Allergen Name Allergen Category Reaction Reaction Severity Criticality Documentation Date Start Date Code Code System Note Provider Name and Address Organization Details Recorded Time 9457 Substance with sulfonami de structure and antibacte rial mechanism of action (substanc e) medicatio n Not available Not available Not available 09/05/2022 93063 8003 SNOMED Not Available [facility] 3 05:17:53 9458 Product containin g penicilli n (product) medicatio n Not available Not available Not available 09/05/2022 39310 8001 SNOMED Not Available [facility] 3 05:17:53 9459 codeine medicatio n Not available Not available Not available 09/05/2022 2670 RxNorm Not Available [facility] 3 05:17:53 9460 Product containin g cephalosp lyle (product) medicatio n Not available Not available Not available 09/05/2022 79540 9009 SNOMED Not Available [facility] 3 05:17:53 Medications Name Sig Start Date [...] % 97 % 63 /min 98.1 [degF] 21655 g 124 mm[Hg] 64 mm[Hg] Not Available [facility] 3 05:05:57 Date Recorded Body mass index (BMI) Body height Oxygen saturation Oxygen saturation in Arterial blood by Pulse oximetry Heart rate Body temperature Body weight Systolic blood pressure Diastolic blood pressure Provider Name and Address Organization Details Last Updated DateTime 1 29.7 kg/m2 152.4 cm 98 % 98 % 64 /min 98.4 [degF] 63114.0 4 g 176 mm[Hg] 80 mm[Hg] Not Available [facility] 3 05:05:58 Date Recorded Body mass index (BMI) Body height Oxygen saturation Oxygen saturation in Arterial blood by Pulse oximetry Heart rate Body temperature Body weight Systolic blood pressure Diastolic blood pressure Provider Name and Address Organization Details Last Updated DateTime 2 29.3 kg/m2 152.4 cm 98 % 98 % 54 /min 98 [degF] 10398.8 6 g 120 mm[Hg] 80 mm[Hg] Not Available [facility] 3 05:05:58 Date Recorded Body height Body mass index (BMI) Body weight Body temperature Heart rate Systolic blood pressure Diastolic blood pressure Provider Name and Address Organization Details Last Updated DateTime 3 152.4 cm 28.7 kg/m2 39258.8 g 97.4 [degF] 69 /min 150 mm[Hg] 70 mm[Hg] AR Munoz [place] [facility] [employer] [facility] 3 10:31:16 Social History Question Answer Notes LastModified by Organizat ion Details LastModified Time Tobacco Smoking Status Former Smoker Not Available [facility] 09/05/2022 05:01:56 What Is Your Level Of Alcohol Consumption? Occasional [id number] Information not available 09/05/2022 What Is Your Level Of Caffeine Consumption? Moderate [id number] Information not available 09/05/2022 When Did You Quit Smoking? 16+yearssincel astcigarette [id number] Information not available 09/05/2022 What Is Your Relationship Status? [id number] Information not available 09/05/2022 Do You Use Any Illicit Or Recreational Drugs? No [id number] Information not available 09/05/2022 Sex: Unknown Functional Status None recorded. Mental Status None recorded. Family History Nothing Reported. Medical History Condition Response GI PROBLEMS Y EYE PROBLEMS Y HEART DISEASE/HEART PROBLEMS Y Gynecological HistoryNo gynecological history recorded. Obstetrics History GPAL:G 0 P 0 0 0 0 Past Encounters Encounter ID Performer Location Encounter Start Date Encounter Closed Date Diagnosis/Indication Diagnosis SNOMED-CT Code Diagnosis ICD10 Code Diagnosis Note [id number] [facility] [place] [address] [place] [address] 02/06/2021 00:00:00 02/06/2021 17:05:50 [id number] [facility] [place] [address] [place] [address] 06/13/2021 00:00:00 06/13/2021 15:22:01 [id number] [facility] [place] [address] [place] [address] 12/26/2021 00:00:00 12/26/2021 15:28:14 [id number] Cher Villalobos MD [facility] [place] [place] [address] [place] [address] 10/23/2022 10:10:52 10/23/2022 10:53:36 Prediabetes 993413556 R73.03 a1c of 5.8% stable- continue natural insulin zoogler s such as pears, apples, cinnamon, elayne and sweet potatoes to help mobilize his endogenous insulin. Recommende d up to 150 minutes of moderate level activity/e xercise weekly. Hyperparathyroidism 6699 9008 E21.3 Her pth is more elevated however her ionized and serum calcium levels as well as vitamin D remain in normal range- this is consistent with normocalce karson hyperparat hyroidism- continue to monitor as there is no indication for surgical measures at this time. She is not due for repeat bone density until this upcoming fall. Osteopenia 485958111 M85 .80 Repeat bone density this fall [...] she chooses to go outside of the [facility] to obtain labwork she was [...] Member ID Guarantor Name 10/23/2022 1 GALINDONA PPY) [id number] Shefali Mojica [id number] Shefali Mojica Notes Date Note Type Note [...] ng/mLionized calcium 5.2 Cher Villalobos MD [address] [facility], [facility] [address], [place], [address], [facility] 10/23/2022 11:08:56 OBGyn Episode No OBEpisode recorded.
--- OUTSIDE RECORDS SUMMARY | 2024-08-31 08:51 | XMS_ITS | Clinical Summary ---
Author Organization [facility] Address [address] [place] [address] Care Team Providers Care A P Mechanic Name Role Phone Joseph Whitman MD Primary Care Provider [phone] Allergies Active Allergy Reactions Criticality Noted Date Comments Cephalosporins Hives High 05/18/2009 Bbmqgsyfx-Ziwaeespy-Wdzxewbn o n Hives High 05/18/2009 Codeine Hives High 05/18/2009 Hydrocodone Hives High 05/18/2009 Penicillins Hives High 05/18/2009 Sulfa (Sulfonamide Antibiotics) Hives,Shortness of Breath/Wheezing High 05/18/2009 Medications esomeprazole (NEXIUM) 40 mg Oral CpDR Take 40 mg by mouth daily before breakfast. Active aspirin (ALLEN) 81 mg Oral Tab Take 81 mg by mouth daily. Active GJ-Mdp-Rboyo Acid-Lutein (CENTRUM SILVER) 500-250 mcg Oral Chew [...] of uterine prolapse,Rectoc nadiya,Cystocele,D iverticulitis Administer 1 Edison in each nostril daily. Active LACTOBACILLUS RHAMNOSUS GG (PROBIOTIC ORAL)Indication s:Special screening for osteoporosis,Ot her screening mammogram,Abdom inal or pelvic swelling, mass, or lump, other specified site,Vaginal prolapse without mention of uterine prolapse,Rectoc nadiya,Cystocele,D iverticulitis Take 1 Tab by mouth daily. Active TOBRADEX 0.3-0.1 % ointment 4 Active ipratropium bromide (ATROVENT) 0.06 % Edison, Non-Aerosol 4 Active baclofen (LIORESAL) 10 mg tablet 4 Active pantoprazole (PROTONIX) 40 mg Tablet, Delayed Release (E.C.) 5 Active ciprofloxacin HCl (CIPRO) 500 mg tablet 5 Active Active Problems Patient Care Coordination No te Formatting of this note migh t be different from the original. 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 Dictated from [facility] Procedure Note Karina Gomez MD - 11/10/2013 [...] mammography is recommended. Dictated from [employer] [place] Critsel Hernandez MD MAMMO ORDERABLES Final Result from Last 3 Months or Most Recently Relevant to Health Maintenance Insurance Advance Directives For more information, please contact: [phone] Documents on File Type Date Recorded Patient Doughnut Icer Expl anation Advance Directive POA 06/26/2012 9:59 AM Advance Directive POA Care Teams A P Mechanic Relationship Specialty Start Date End Date Joseph Whitman MD [address] [place] [address] PCP - General 07/07/08
--- OUTSIDE RECORDS SUMMARY | 2024-08-31 08:52 | XMS_ITS | Continuity of Care Document ---
Author Organization [employer] Address [address] [place] [address] Phone Care Team Providers Care Fine Jewelry Sales Associate Name Role Phone Farshadfaraz TRISTAGitaNikki Unavailable Unavailable [...] cranberry extract 300 mg tablet - Active [facility] 1.5 billion cell capsule - Active [...] Diagnoses Date Provider Providers Copied on Encounter [employer], [address], [place], [place], [id number] , tel: [phone] [facility] Non-allergic rhinitisGastro-esop hageal reflux disease without esophagitisAllergy history, penicillin 8 Farshadfaraz PelayoNikki . [address], [id number] , . tel: [phone] Referring Provider: David Sepulveda, [address] [place] [address], [address] . tel:[phone] [employer], [address], [place], [place], [id number] , tel: [phone] [facility] No Information 7 Derick Hernandez. [address] [facility], [address], [id number] , . tel: [phone] [employer], [address], [place], [place], [id number] , tel: [phone] [facility] Cough due to TABITHA inhibitorAdverse effect of angiotensin-convert ing-enzyme inhibitors, initial encounterChoking in adultPost-nasal dripNon-allergic rhinitisAllergy history, penicillin 7 Derick Hernandez. [address], [id number] , . tel: [phone] Referring Provider: Denis Ventura, [address], [address]. tel:[phone] Family History Family Member Type Diagnosis Age At Onset Problem (finding) No family history of As thma Mother Problem (finding) GERD Problem (finding) No family history of Al lermikaes Payers Payer name Insurance type Covered alliance party ID Authoriza tion(s) [facility] GROUP MEDICARE ADVANTAGE [id number] Social History Type Description Quantity Date Captured [...]
[2024-08-31 09:16] LABS: EDCOVIDSCREEN Negative (Negative); EDINFLUASCREEN Negative (Negative); EDINFLUBSCREEN Negative (Negative)
== END 2024-08-31 09:22 | disposition home or self-care (01) ==
PROVIDERS: Emergency Provider Nurse Practitioner; PCP Family Medicine
DX: J06.9 Acute upper respiratory infection, unspecified (principal); R05.9 Cough, unspecified; Z20.822 Contact with and (suspected) exposure to COVID-19; Z87.891 Personal history of nicotine dependence; H35.30 Unspecified macular degeneration; I25.2 Old myocardial infarction; I50.9 Heart failure, unspecified; K21.9 Gastro-esophageal reflux disease without esophagitis; F41.9 Anxiety disorder, unspecified; Z79.82 Long term (current) use of aspirin
CPT/HCPCS: 87426; 87804; 99212; G0463

== ENCOUNTER 2024-09-17 14:00 | Outpatient (RCR) | payer MEDICARE, SELFPAY ==
--- NOTE | 2024-08-17 17:40 | OPREHPOC ---
Outpatient Therapy Plan of Care This is a Multidisciplinary Plan of Care that may contain components documented by all disciplines (PT, OT, and ST.) PT Problem 1 PT Problem #1 Knowledge Deficit PT Goal 1 Goal / Goal Update [place] with HEP Target Visit 4 PT Goal 2 Goal / Goal Update Patient will report no knee pain greater than 2/10 for 2 consecutive weeks Target Visit 4 PT Problem 2 PT Problem #2 Impaired Range of Motion PT Goal 1 Goal / Goal Update 1. Achieve terminal knee extension motion waldo 2. Improve waldo knee flexion to 120 degrees to improve knee joint functional mobility 3. Improve waldo hip abduction motion to 30 degrees to reduce hip mobility restriction Target Visit 8 PT Problem 3 PT Problem #3 Impaired Strength PT Goal 1 Goal / Goal Update Improve waldo hip abduction strength to 4/5 to improve lateral stability with ADLs Target Visit 8
--- NOTE | 2024-08-17 17:40 | PTOPEVAL1 ---
Assessment and note entered by Gwyn Winkler, PT Evaluation Information Assessment Status Evaluation ICD-10 Condition Codes (PT) Pain in right knee M25.561,Pain in left knee M25. 562 Subjective Information Reports that she has pain in both knees but the left is greater. She is also having some trouble in the right hip. This is affecting her gait and navigation of stairs. Denies fall history. Reports that she is getting occasional back pain. Has history of lumbar stenosis. 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 Patient has symptoms consistent with hip OA, lumbar stenosis, and poor functional mobility in waldo knees, greater on left LE. Patient will benefit form skilled therapy to address deficits. Plan of Care Interventions Gait Training,Manual Therapy,Neuro Re-education, Therapeutic Activities,Therapeutic Exercise PT Services Indicated Yes Treatment Frequency and 2x/week for 8 visits Duration These treatments will address the objective and functional deficits as defined above. The patient will be advanced safely and appropriately in order for the patient to progress towards his/her prior level of function. Additional exercises will be introduced and as well as a comprehensive home exercise program upon discharge, if needed, ?to ensure carryover of functional gains achieved in the clinic. This treatment plan has been reviewed and agreement upon by the patient.
--- NOTE | 2024-09-17 14:46 | OPREHPOC ---
Outpatient Therapy Plan of Care This is a Multidisciplinary Plan of Care that may contain components documented by all disciplines (PT, OT, and ST.) PT Problem 1 PT Problem #1 Knowledge Deficit PT Goal 1 Goal / Goal Update [place] with HEP Target Visit 4 Progress Met PT Goal 2 Goal / Goal Update Patient will report no knee pain greater than 2/10 for 2 consecutive weeks Target Visit 4 Progress Met PT Problem 2 PT Problem #2 Impaired Range of Motion PT Goal 1 Goal / Goal Update 1. Achieve terminal knee extension motion waldo 2. Improve waldo knee flexion to 120 degrees to improve knee joint functional mobility 3. Improve waldo hip abduction motion to 30 degrees to reduce hip mobility restriction Target Visit 8 Progress Met PT Problem 3 PT Problem #3 Impaired Strength PT Goal 1 Goal / Goal Update Improve waldo hip abduction strength to 4/5 to improve lateral stability with ADLs Target Visit 8 Progress Met
--- NOTE | 2024-09-17 14:46 | PTOPDC ---
Assessment and note entered by Gwyn Winkler, PT Evaluation Information Assessment Status Discharge ICD-10 Condition Codes (PT) Pain in right knee M25.561,Pain in left knee M25. 562 Subjective Information Reports that overall she is doing much better. Still having the occasional pain, but is much more functional at this time. Reports that she has been back to doing more walking. Reported Pain Level Pain Score 0: Self Report Assessment PT Clinical Summary Patient has made excellent progress in knee ROM and strength and has seen carry over in functional mobility and capability. She is independent with HEP and is suitable for discharge at this time. Plan of Care PT Services Indicated Yes
== END 2024-09-17 16:42 | disposition home or self-care (01) ==
LOC: ANHPT 14:00
PROVIDERS: PCP Family Medicine; Visit Provider Family Medicine
DX: M25.561 Pain in right knee (principal); M25.571 Pain in right ankle and joints of right foot; M25.562 Pain in left knee; S86.891A Other injury of other muscle(s) and tendon(s) at lower leg level, right leg, initial encounter
CPT/HCPCS: 97110; 97112; 97140; 97161; 97530

== ENCOUNTER 2024-12-10 09:00 | Outpatient (CLI) | payer MEDICARE, SELFPAY ==
--- OUTSIDE RECORDS SUMMARY | 2024-12-10 09:29 | XMS_ITS | Data Portability ---
Author Organization [place] [facility],, Judith kessler Address [address] [place] [address] Assessment Encounter Date Assessment Date Assessment LastModified [...] polamin e 5 mg tablet 2014 [id number] [address] [facility], [place], [place], [id number], 5 17:39:51 ipratro pium bromide 42 mcg (0.06 %) nasal spray 2012 013 [facility], [address] [place] [address], [address], 3 03:09:36 Patient TargetsNo targets recorded. Patient Instructions Encounter Date Encounter Id Patient Instructions Last Modified By Organization Details Last Modified Time 01/05/2013 [id number] Patient has had a modest response to it. Ectropion bromide nasal spray 0.03% I think a fight, double it to 0.06%. She may have continued improvement. [email or web address] Not available 01/05/2013 12:40:21 10/05/2014 [id number] rhinitis: care instructions [email or web address] Not available 10/05/2014 17:39:51 Reason for Referral None Reported. Problems Name Problem SNOMED Code Status Onset Date Resolution Date Notes Provider Name and Address Organization Details Recorded Time Gastroesophage al reflux disease 070070727 Active MD [address], [place], [address] , [place] [facility], 5 16:36:13 Chronic rhinitis 27628843 Active MD [address], [place], [address] , [place] [facility], 5 17:39:51 Problem Notes None recorded. Medical Equipment None Reported. Allergies Allergen ID Allergen Name Allergen Category Reaction Reaction Severity Criticality Documentation Date Start Date Code Code System Note Provider Name and Address Organization Details Recorded Time 9725 Product containin g penicilli n (product) medicatio n other mild Not available 01/05/2013 68314 8001 SNOMED Maria birch, [place] [facility], 3 12:06:47 9726 Substance with sulfonami de structure and antibacte rial mechanism of action (substanc e) medicatio n other mild Not available 01/05/2013 26166 8003 SNOMED Maria birch[place] [facility], 3 12:06:47 9727 codeine medicatio n other mild Not available 01/05/2013 2670 RxNorm Maria birch [place] [facility], 3 12:06:47 9728 Medicinal product containin g cephalosp lyle and acting as antibacte rial agent (product) medicatio n other mild Not available 01/05/2013 22275 9009 SNOMED Maria birch [place] [facility], 3 12:06:47 9729 hydrocodo ne Not available other mild Not available 01/05/2013 5489 RxNorm Maria birch [place] [facility] [...] bromide 21 mcg (0.03 %) nasal spray [place] 2 sprays twice a day by intranasal [...] Address Organization Details Last Updated DateTime 5 77013.5 5631 g 30.8 kg/m2 154.94 cm 98.2 [degF] 158 mm[Hg] 76 mm[Hg] Leonie Vivar [place] [facility], 5 16:17:10 Date Recorded Body height Body weight Body temperature Body mass index (BMI) Systolic blood pressure Diastolic blood pressure Provider Name and Address Organization Details Last Updated DateTime 3 154.94 cm 40673.3 3342 g 98 [degF] 31.4 kg/m2 124 mm[Hg] 66 mm[Hg] Maria Garcia [place] [facility], 3 12:03:43 Social History Question Answer Notes LastModified by [employer] Details LastModified Time Tobacco Smoking Status Former Smoker Not Available [employer] 05/10/2020 03:24:57 Marital Status [email or web address] Informatio n not available 01/05/2013 Sex: Unknown Functional Status Question Answer Note LastModified by [employer] Details LastModified Time What is your level of alcohol consumption? Occasional [id number] Information not available 05/10/2020 Mental Status None recorded. Family History Relationship Description Onset Age of this Age Resolved Age Notes LastModified by Organization Details LastModified Time Mother Old-age 94 [email or web address] Not available 0 10/05/2014 16:17:52 Father Congestive heart failure 84 [email or web address] Not available 2014 16:17:52 Medical History Condition Response Anxiety Disorder N Diabetes N Coronary Artery Disease N Gout N Arthritis N Kidney Stones N Hyperthyroidism N Tuberculosis N Cancer N Diverticulitis N Stroke N Asthma N Allergies Y COPD N Depression N Hypothyroidism N Stress N High Cholesterol N GERD/Reflux Y Liver Disease N Heart Disease N Pulmonary Embolism N Fibromyalgia N Hypertension N Osteoporosis N Kidney Disease N Gynecological HistoryNo gynecological history recorded. Obstetrics History GPAL:G 0 P 0 0 0 0 Past Encounters Encounter ID Performer Location Encounter Start Date Encounter Closed Date Diagnosis/Indication Diagnosis SNOMED-CT Code Diagnosis ICD10 Code Diagnosis Note [id number] Steven rivers MD OFFICE [address] [place] [address] 8 01/05/2013 11:18:28 01/05/2013 14:19:32 [id number] Steven rivers MD OFFICE [address] [place] [address] 8 10/05/2014 15:57:28 10/05/2014 16:51:02 Chronic rhinitis 23840512 Health Concerns Section Related Observation LastModified by Organization Detai ls LastModified Time None Recorded Concern Status LastModified by Organization Details LastModified Time None Recorded Advance Directives Directive None Recorded Payers Encounter Date Sequence Insurance Name Policy Number Policy Cain Covered Member ID Cain Member ID Guarantor Name 01/05/2013 1 [place] Shefali Mojica [id number] Shefali Mojica 01/05/2013 1 [facility] [id number] Shefali Mojica [id number] Shefali Mojica 10/05/2014 1 [facility] (MEDICARE REPLACEMENT/ ADVANTAGE - PPO) [id number] Shefali Mojica [id number] Shefali Mojica Notes Date Note Type Note [...] recurrent sinus infections have been noted. Steven Betancourt MD [address], [place], [address], [facility], 01/05/2013 12:43:41 10/05/2014 text/html ARMEN Meehan comes in with symptoms of chronic postnasal drainage. She had a good response to Atrovent nasal spray 0.06%, but she feels like it's not working as well as it has. There is constant drainage. It is clear and there is no fever, chills or recurrent sinus infections. Steven Betancourt MD [address], [place], [address], [facility], 10/05/2014 17:40:03 OBGyn Episode No OBEpisode recorded.
--- OUTSIDE RECORDS SUMMARY | 2024-12-10 09:29 | XMS_ITS | Data Portability ---
Author Organization [facility] [employer], Main Office Address [address] [place] [address] Assessment No assessment recorded. Plan of Treatment Reminders Order Date Submit Date Provider Last Modified By Organization Details Last Modified Time Details Appointments None recorded. Lab calcium, ionized, blood [address] [place] [address] (Lab), [address] [place] [address], [phone], 3 10:51:29 T4, free, serum [address] [place] [address] (Lab), [address] [place] [address], [address], 3 10:51:29 PTH (parathyr oid hormone), intact, serum or plasma [address] [place] [address] (Lab), [address] [place] [address], [address], 3 10:51:29 phosphoru s, serum or plasma [address] [place] [address] (Lab), [address] [place] [address], [address], 3 10:51:29 TSH, serum or plasma [address] [place] [address] (Lab), [address] [place] [address], [address], 3 10:51:29 HbA1c (hemoglob in A1c), blood [address] (Lab), [address] [facility] [address] [facility], [place], [address], 10:51:29 CMP, serum or plasma [address] (Lab), [address] [facility] [address] [place] [address], [address], 10:51:29 Referral None recorded. Procedures None recorded. Surgeries None recorded. Imaging bone density 2022 023 [facility] (Imaging), [address] [place] [address], [address], 11:10:25 Medication Orders None recorded. Patient TargetsNo targets recorded. Patient InstructionsNo instructions recorded. Reason for Referral None Reported. Results Created Date Observation Date Name Description Value Unit Range Abnormal Flag Note LastModifiedBy Organization Detail LastModifiedTime 05/16/20 21 05/16/2021 US, thyro id No observ ation record ed. [id number] [place] [address] (Imaging) [address] [place] [address], [address], 09/05/2022 05:18:19 05/17/20 21 05/16/2021 bone densi ty No observ ation record ed. [id number] [place] [address] (Imaging) [address] [place] [address], [address], 09/05/2022 05:18:19 05/26/20 21 05/16/2021 bone densi ty No observ ation record ed. [id number] [place] [address] (Imaging) [address] [place] [address], [address], 09/05/2022 05:18:19 05/26/20 21 05/16/2021 bone densi ty No observ ation record ed. [id number] [place] [address] (Imaging) [address] [place] [address], [address], 09/05/2022 05:18:19 05/26/20 21 05/16/2021 bone densi ty No observ ation record ed. [id number] [facility] (Imaging) [facility] [address] [facility], [place], [address], 09/05/2022 05:18:19 05/26/20 21 05/16/2021 bone densi ty No observ ation record ed. [id number] [facility] (Imaging) [address] [place] [address] Rte [facility], [place], [address], 09/05/2022 05:18:19 05/26/20 21 05/16/2021 bone densi ty No observ ation record ed. [id number] [place] [address] (Imaging) [address] [place] [address] [place] [address], [address], 09/05/2022 05:18:19 05/26/20 21 05/16/2021 bone densi ty No observ ation record ed. [id number] [facility] (Imaging) [address] [place] [address], [address], 09/05/2022 05:18:19 Result Notes None recorded. 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 Procedures Surgical History Date Name Laterality Status Provider Name and Address Organization Details Recorded Time release of trigger finger completed Not Available [facility] 09/05/2022 05:05:00 tooth extraction completed Not Available [facility] 09/05/2022 05:05:00 Breast Biopsy completed Not Available [facility] 09/05/2022 05:05:00 Appendectomy completed Not Available [facility] 09/05/2022 05:05:00 Hysterectomy completed Not Available [facility] 09/05/2022 05:05:00 Imaging Results None recorded. Procedure Notes None recorded. Medical Equipment None Reported. Allergies Allergen ID Allergen Name Allergen Category Reaction Reaction Severity Criticality Documentation Date Start Date Code Code System Note Provider Name and Address Organization Details Recorded Time 9457 Substance with sulfonami de structure and antibacte rial mechanism of action (substanc e) medicatio n Not available Not available Not available 09/05/2022 50277 8003 SNOMED Not Available [facility] 3 05:17:53 9458 Product containin g penicilli n (product) medicatio n Not available Not available Not available 09/05/2022 93785 8001 SNOMED Not Available [facility] 3 05:17:53 9459 codeine medicatio n Not available Not available Not available 09/05/2022 2670 RxNorm Not Available [facility] 3 05:17:53 9460 Medicinal product containin g cephalosp lyle and acting as antibacte rial agent (product) medicatio n Not available Not available Not available 09/05/2022 07279 9009 SNOMED Not Available [facility] 3 05:17:53 Medications Name Sig Start Date [...] completed Not Available Not Available Not Available [employer] 1.5 billion cell capsule Take 1 capsule [...] Available Not Available Vitals Date Recorded Body height Body mass index (BMI) Body weight Body temperature Heart rate Systolic blood pressure Diastolic blood pressure Provider Name and Address Organization Details Last Updated DateTime 3 152.4 cm 28.7 kg/m2 75282.8 g 97.4 [degF] 69 /min 150 mm[Hg] 70 mm[Hg] AR Munoz [place] [facility] [employer] [facility] 3 10:31:16 Date Recorded Body mass index (BMI) Body height Oxygen saturation Oxygen saturation in Arterial blood by Pulse oximetry Heart rate Body temperature Body weight Systolic blood pressure Diastolic blood pressure Provider Name and Address Organization Details Last Updated DateTime 2 29.3 kg/m2 152.4 cm 98 % 98 % 54 /min 98 [degF] 11653.8 6 g 120 mm[Hg] 80 mm[Hg] Not Available [facility] 3 05:05:58 Date Recorded Body mass index (BMI) Body height Oxygen saturation Oxygen saturation in Arterial blood by Pulse oximetry Heart rate Body temperature Body weight Systolic blood pressure Diastolic blood pressure Provider Name and Address Organization Details Last Updated DateTime 1 30.7 kg/m2 152.4 cm 97 % 97 % 63 /min 98.1 [degF] 29002 g 124 mm[Hg] 64 mm[Hg] Not Available [facility] 3 05:05:57 Date Recorded Body mass index (BMI) Body height Oxygen saturation Oxygen saturation in Arterial blood by Pulse oximetry Heart rate Body temperature Body weight Systolic blood pressure Diastolic blood pressure Provider Name and Address Organization Details Last Updated DateTime 1 29.7 kg/m2 152.4 cm 98 % 98 % 64 /min 98.4 [degF] 72348.0 4 g 176 mm[Hg] 80 mm[Hg] Not Available [facility] 3 05:05:58 Social History Question Answer Notes LastModified by [employer] Details LastModified Time Tobacco Smoking Status Former Smoker Not Available [facility] 09/05/2022 05:01:56 What Is Your Level Of Caffeine Consumption? Moderate [id number] Information not available 09/05/2022 When Did You Quit Smoking? 16+yearssince lastcigarette [id number] Information not available 09/05/2022 What Is Your Relationship Status? [id number] Information not available 09/05/2022 Sex: Unknown Functional Status Question Answer Note LastModified by [employer] Details LastModified Time Do you use any illicit or recreational drugs? No [id number] Information not available 09/05/2022 What is your level of alcohol consumption? Occasional [id number] Information not available 09/05/2022 Mental Status None recorded. Family History Nothing Reported. Medical History Condition Response EYE PROBLEMS Y HEART DISEASE/HEART PROBLEMS Y GI PROBLEMS Y Gynecological HistoryNo gynecological history recorded. Obstetrics History GPAL:G 0 P 0 0 0 0 Past Encounters Encounter ID Performer Location Encounter Start Date Encounter Closed Date Diagnosis/Indication Diagnosis SNOMED-CT Code Diagnosis ICD10 Code Diagnosis Note [id number] Cher Villalobos MD [facility] [place] [address] [place] [address] 02/06/2021 00:00:00 02/06/2021 17:05:50 [id number] Cher Villalobos MD [facility] [place] [address] [place] [address] 06/13/2021 00:00:00 06/13/2021 15:22:01 [id number] Cher Villalobos MD [facility] [place] [address] [place] [address] 12/26/2021 00:00:00 12/26/2021 15:28:14 [id number] Cher Villalobos MD [facility] [place] [address] [place] [address] 10/23/2022 10:10:52 10/23/2022 10:53:36 Prediabetes 672992847 R73.03 a1c of 5.8% stable- 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 Osteopenia 744445383 M85 .80 Repeat bone density this fall [...] she chooses to go outside of the [facility] system to obtain labwork she was [...] Cain Member ID Guarantor Name 10/23/2022 1 GAEL (PPO) [id number] Shefali Mojica [id number] Shefali Mojica Notes Date Note Type Note [...] ng/mLionized calcium 5.2 Cher Villalobos MD [address] [facility], [facility] [address], [place], [address], [place] [facility] 10/23/2022 11:08:56 OBGyn Episode No OBEpisode recorded.
--- OUTSIDE RECORDS SUMMARY | 2024-12-10 09:29 | XMS_ITS | Encounter Summary ---
Author Organization [facility] Address [address] [facility] [address] [place] [address] Care Team Providers Care Bottle Dealer Name Role Phone Denis Ventura MD Primary Care Provider [phone] Denis Ventura MD Primary Care Provider [phone] Royer Whelan DO Primary Care Provider Royer Whelan DO Primary Care Provider [phone] Royer Whelan DO Unavailable Osman Gaspar MD Primary Care Provider [phone] Mike Flaherty MD Primary Care Provider [phone] Encounter Details Date Type Department Care Team (Late st Contact Info) Description 07/12/2016 Orders Only [facility] ProviderStefany MD [address] [place] [address] Social History Tobacco Use Types Packs/Day Years Used Date Smoking Tobacco: Former Comments:Smoking History Pac ks/day: 0.25 Packs Alcohol Use Standard Drinks/Week Comments No 0 (1 standard drink = 0.6 oz pur e alcohol) Comments Unknown Sex and Gender Information Value Date Recorded Sex Assigned at Not on file 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
--- OUTSIDE RECORDS SUMMARY | 2024-12-10 09:29 | XMS_ITS | Referral Summary ---
Author Organization [facility] Address [address] [place] [address] Care Team Providers Care University Services Program Associate Name Role Phone Mike Flaherty MD Primary Care Provider [phone] Allergies Active Allergy Reactions Criticality Noted Date Comments Cefaclor Rash Medium Cephalosporins Hives,Rash Medium 05/18/2009 Tusfcjijc-Bhifmdoxx-Byvy ocodon Hives Medium 05/18/2009 Codeine Hives Medium 05/18/2009 Reaction: Hives, , Hydrocodone Hives Medium 05/18/2009 Penicillin Hives Medium 05/22/2017 Penicillins Hives,Rash Medium 05/18/2009 Sulfa (Sulfonamide Antibiotics) Anaphylaxis,Hives, Shortness of breath High 05/18/2009 Other reaction(s): breathing difficulty, red generalized rash , Medications aspirin 81 mg tablet Take one by mouth one time per day 0 0 8 Active L. gasseri-B. 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 Historical Provider MD TRAORE DXA PROCEDURES Final Result from Last 3 Months or Most Recently Relevant to Health Maintenance Insurance [facility] MEDICARE ADVANTAGE [facility] MEDICARE Address: [facility] [address] [place] [address] COUNT INCLUDES THE [facility] MEDICARE [facility] MEDICARE ADVANTAGE [facility] MEDICARE Address: [address] [address] [place] [address] COUNT INCLUDES THE [facility] MEDICARE COUNT INCLUDES THE [facility] MEDICARE Member Subscriber Plan / Payer (Ef fective 2022-) Name:Tangela Gamino Relation to Subscriber:Self Name:Tangela Gamino Payer ID:1 (NAIC) Type:[employer] MEDICARE Address: [address] [place] [address] Care Teams University Services Program Associate Relationship Specialty Start Date End Date Mike Flaherty MD PCP - General Family Practice 12/12/23
--- OUTSIDE RECORDS SUMMARY | 2024-12-10 09:29 | XMS_ITS | Clinical Summary ---
Author Organization [facility] Address [address] [place] [address] Care Team Providers Care Four Slide Operator Name Role Phone Mike Flaherty MD Primary Care Provider [phone] Allergies Active Allergy Reactions Criticality Noted Date Comments Cefaclor Rash Medium Cephalosporins Hives,Rash Medium 05/18/2009 Asqwypmdf-Xzhrgtdhl-Ndjo ocodon Hives Medium 05/18/2009 Codeine Hives Medium 05/18/2009 Reaction: Hives, , Hydrocodone Hives Medium 05/18/2009 Penicillin Hives Medium 05/22/2017 Penicillins Hives,Rash Medium 05/18/2009 Sulfa (Sulfonamide Antibiotics) Anaphylaxis,Hives, Shortness of breath High 05/18/2009 Other reaction(s): breathing difficulty, red generalized rash , Medications aspirin 81 mg tablet Take one by mouth one time per day 0 0 8 Active L. gasseri-B. 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 Gender Identity Female 08/12/2020 5:16 PM GRAIN SCOOPER Sexual Orientation Not on file Obstetrics History [...] 5 season) 2024 09/08/2020, 08/18/2020 Influenza Vaccine (Season Ended) 2025 04/01/2019, 04/02/2018, 04/03/2017, Additional history exists DTaP/Tdap/Td Vaccine (3 - Td or Tdap) 11/13/2028 11/13/2018, 04/16/2016 Osteoporosis Screening-Bone Density Scan Discontinued 11/30/2014, 11/30/2014, 11/17/2014, Additional history exists Pneumococcal vaccine 65+ Completed 06/16/2015, 11/2010 Procedures Procedure Name Priority Date/Time Associated Diagnosis Comments BONE MINERAL DENSITY 11/17/2014 from Last 3 Months or Most Recently Relevant to Health Maintenance Results * BONE MINERAL DENSITY (11/17/2014) Anatomical Region Laterality Modality Radiographic Britt ging Narrative 11/17/2014 Ordered by an unspecified provider. us Historical Provider MD TRAORE DXA PROCEDURES Final Result from Last 3 Months or Most Recently Relevant to Health Maintenance Insurance [facility] MEDICARE ADVANTAGE [facility] MEDICARE [facility]IC[facility] ADVANTAGE [facility] MEDICARE [facility] MEDICARE Care Teams Four Slide Operator Relationship Specialty Start Date End Date Mike Flaherty MD PCP - General Family Practice 12/12/23
--- OUTSIDE RECORDS SUMMARY | 2024-12-10 09:30 | XMS_ITS | Clinical Summary ---
Author Organization [facility] Address [address] [place] [address] Care Team Providers Care Healthcare Management Consultant Name Role Phone Joseph Whitman MD Primary Care Provider [phone] Allergies Active Allergy Reactions Criticality Noted Date Comments Cephalosporins Hives High 05/18/2009 Rrhcenkzj-Izvhaqklp-Ekleyorf o n Hives High 05/18/2009 Codeine Hives High 05/18/2009 Hydrocodone Hives High 05/18/2009 Penicillins Hives High 05/18/2009 Sulfa (Sulfonamide Antibiotics) Hives,Shortness of Breath/Wheezing High 05/18/2009 Medications esomeprazole (NEXIUM) 40 mg Oral CpDR Take 40 mg by mouth daily before breakfast. Active aspirin (ALLEN) 81 mg Oral Tab Take 81 mg by mouth daily. Active FK-Zxs-Dbdzj Acid-Lutein (CENTRUM SILVER) 500-250 mcg Oral Chew [...] of uterine prolapse,Rectoc nadiya,Cystocele,D iverticulitis Administer [address] [place] in each nostril daily. Active LACTOBACILLUS RHAMNOSUS GG (PROBIOTIC ORAL)Indication s:Special screening for osteoporosis,Ot her screening mammogram,Abdom inal or pelvic swelling, mass, or lump, other specified site,Vaginal prolapse without mention of uterine prolapse,Rectoc nadiya,Cystocele,D iverticulitis Take 1 Tab by mouth daily. Active TOBRADEX 0.3-0.1 % ointment 4 Active ipratropium bromide (ATROVENT) 0.06 % [place], Non-Aerosol 4 Active baclofen (LIORESAL) 10 mg tablet 4 Active pantoprazole (PROTONIX) 40 mg Tablet, Delayed Release (E.C.) 5 Active ciprofloxacin HCl (CIPRO) 500 mg tablet 5 Active Active Problems Patient Care Coordination No te Formatting of this note migh t be different from the original. 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 [facility] Procedure Note Karina Gomez MD - 11/10/2013 [...] Advance Directives For more information, please contact: [phone] Documents on File Type Date Recorded Patient Technical Sales Representatives Expl anation Advance Directive POA 06/26/2012 9:59 AM Advance Directive POA Care Teams Healthcare Management Consultant Relationship Specialty Start Date End Date Joseph Whitamn MD [address] [place] [address] PCP - General 07/07/08
--- OUTSIDE RECORDS SUMMARY | 2024-12-10 09:30 | XMS_ITS | Encounter Summary ---
Author Organization [facility] Address 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 Gender Identity Not on file Sexual Orientation Not on file documented as of this encounter Plan of Treatment Not on file documented as of this encounter Procedures Procedure Name Priority Date/Time Associated Diagnosis Comments CANCER ANTIGEN 125 Routine 11/10/2008 12 :53 PM CDT documented in this encounter Results * CANCER ANTIGEN 125 (11/10/2008 12:53 PM CDT) CA 125 7 <=34 U/mL [facility] Comment: Reference Range: CA-125 </= [...] esult INTERFACE SYSTEM Refer to clinic/hospital department [facility] CLIA# [id number] [address] [place] [address] documented in this encounter Visit Diagnoses Diagnosis Abdominal or pelvic swelling, mass, or lump, other specified site documented in this encounter Care Teams Supervisor Reclamation Relationship Specialty Start Date End Date Joseph Whitman MD [address] [place] [address] PCP - General 07/07/08 documented as of this encounter
--- OUTSIDE RECORDS SUMMARY | 2024-12-10 09:30 | XMS_ITS | Encounter Summary ---
Author Organization [facility] Address 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 [place] [address] [facility] [address] [address] Mauro Uribe MD [address] [facility] [address] [place] [address] Postmenopausal Atrophic Vaginitis Social History Tobacco Use Types Packs/Day Years Used Date Smoking Tobacco: Never Assessed Comments Unknown Sex and Gender Information Value Date Recorded Sex Assigned at Not on file 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 Gender Identity Not on file Sexual Orientation Not on file documented as of this encounter Plan of Treatment Not on file documented as of this encounter Procedures Procedure Name Priority Date/Time Associated Diagnosis Comments CERV/VAG CYTOPATH, SUREPATH W/RFLX HPV Routine 11/10/2008 8:22 PM CDT documented in this encounter Results * CERV/VAG CYTOPATH, SUREPATH W/RFLX HPV (11/10/2008 8:22 PM CDT) SOURCE Cervix, Endocervix S [facility] LAST MENSTRUAL PERIOD 1991 [facility] CYTOTECHNOLOGI ST: MVW, CT(ASCP) [facility] Comment: Lab test performed by: Capsule Tech [facility] [address] [place] [id number] FLORINA BBAIN MD PREV PAP: Information not provided [facility] ADEQUACY: ansi Satisfactory for evaluation. Endocervical/trans formation zone component present. [facility] CLINICAL INFORMATION ansi Normal exam Postmenopausal [facility] REPORT STATUS [facility] PAP INTERP Negative for intraepithelial lesion or malignancy. [facility] PREV BX: Information not provided [facility] Director Export Pap Comment Based on the cytology result, reflex High Risk HPV DNA testing was not performed. [facility] Specimen from uterine cervix (specimen) 11/10/2008 8:22 PM CDT 11/10/2008 8:45 PM CDT us Mauro Uribe MD PATHOLOGY/CYTOLOGY ORDERABLE S Final Result INTERFACE SYSTEM Refer to clinic/hospital department [facility] CLIA# [id number] [address] [place] [address] documented in this encounter Visit Diagnoses Diagnosis Postmenopausal atrophic vaginitis documented in this encounter Care Teams Server Cashier Relationship Specialty Start Date End Date Joseph Whitman MD [address] [place] [address] PCP - General 07/07/08 documented as of this encounter
[2024-12-10 10:17] LABS: Parathyroid Intact 56.2 pg/mL (14.5-75.2)
[2024-12-10 10:30] LABS: Alanine Aminotransferase 18 U/L (6-35); Albumin Level 4.2 g/dL (3.5-5.1); Alkaline Phosphatase 50 U/L (38-126); Anion Gap 8 mmol/L (4-12); Aspartate Amino Transferase 29 U/L (14-36); Bilirubin,Total 0.7 mg/dL (0.2-1.3); Blood Urea Nitrogen 18 mg/dL (7-17); Carbon Dioxide 25 mmol/L (22-30); Chloride 109 mmol/L (98-107); Estimated Glomerular Filt Rate 54; Glucose 96 mg/dL (65-110); Phosphorus 3.2 mg/dL (2.5-4.5); Potassium 4.2 mmol/L (3.4-5.0); Sodium 142 mmol/L (137-145); Total Protein 7.1 g/dL (6.3-8.2)
[2024-12-10 11:34] LABS: Free T4 Free Thyroxine 0.89 ng/dL (0.78-2.19); Vitamin D 25 Hydroxy 53.7 ng/mL
[2024-12-11 10:44] LABS: Ionized Calcium 5.6 mg/dL (4.7-5.5)
== END 2024-12-10 09:01 | disposition home or self-care (01) ==
LOC: ANHLAB 09:01
PROVIDERS: PCP Family Medicine; Visit Provider Internal Medicine
DX: E66.3 Overweight (principal); E78.5 Hyperlipidemia, unspecified; E34.9 Endocrine disorder, unspecified; R73.03 Prediabetes; I10 Essential (primary) hypertension; E21.3 Hyperparathyroidism, unspecified; E04.1 Nontoxic single thyroid nodule; Z13.21 Encounter for screening for nutritional disorder
CPT/HCPCS: 36415; 80053; 82306; 82330; 83735; 83970; 84100; 84439; 84443

== ENCOUNTER 2024-12-14 10:28 | Outpatient (CLI) | payer MEDICARE, SELFPAY ==
--- NOTE | ~2024-12-14 | US_ITS ---
Thyroid ultrasound. Clinical History: Prediabetes Findings: Real-time sonography of the thyroid gland was performed. The right lobe measures 4.4 x 1.3 x 1.1 cm. The left lobe measures 3.9 x 1.5 x 1.2 cm. The isthmus is 6 mm in AP diameter. There is a 6 mm probable cystic nodule at the right midpole. There is a 4 mm cystic nodule at the lef t upper pole. Impression: Subcentimeter cystic nodules in the thyroid gland, benign.. Reviewed, dictated and finalized at location M. Impression: Subcentimeter cystic nodules in the thyroid gland, benign..
--- OUTSIDE RECORDS SUMMARY | 2024-12-14 11:47 | XMS_ITS | Encounter Summary ---
Author Organization [facility] Address 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 [place] [address] [facility] [address] [address] Mauro Uribe MD [address] [facility] [address] [place] [address] Postmenopausal Atrophic Vaginitis Social History Tobacco Use Types Packs/Day Years Used Date Smoking Tobacco: Never Assessed Comments Unknown Sex and Gender Information Value Date Recorded Sex Assigned at Not on file Legal Sex Female 3:49 AM 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 Gender Identity Not on file Sexual Orientation Not on file documented as of this encounter Plan of Treatment Not on file documented as of this encounter Procedures Procedure Name Priority Date/Time Associated Diagnosis Comments CERV/VAG CYTOPATH, SUREPATH W/RFLX HPV Routine 11/10/2008 8:22 PM CDT documented in this encounter Results * CERV/VAG CYTOPATH, SUREPATH W/RFLX HPV (11/10/2008 8:22 PM CDT) SOURCE Cervix, Endocervix S [facility] LAST MENSTRUAL PERIOD 1991 [facility] CYTOTECHNOLOGI ST: MVW, CT(ASCP) [facility] Comment: Lab test performed by: [employer] [facility] [address] [place] [address] FLORINA BABIN MD PREV PAP: Information not provided [facility] ADEQUACY: ansi Satisfactory for evaluation. Endocervical/trans formation zone component present. [facility] CLINICAL INFORMATION ansi Normal exam Postmenopausal [facility] REPORT STATUS [facility] PAP INTERP Negative for intraepithelial lesion or malignancy. [facility] PREV BX: Information not provided [facility] Oil Gauger Pap Comment Based on the cytology result, reflex High Risk HPV DNA testing was not performed. [facility] Specimen from uterine cervix (specimen) 11/10/2008 8:22 PM CDT 11/10/2008 8:45 PM CDT us Mauro Uribe MD PATHOLOGY/CYTOLOGY ORDERABLE S Final Result INTERFACE SYSTEM Refer to clinic/hospital department [facility] CLIA# [id number] [address] [place] [address] documented in this encounter Visit Diagnoses Diagnosis Postmenopausal atrophic vaginitis documented in this encounter Care Teams Draw Bench Operator Helper Relationship Specialty Start Date End Date Joseph Whitman MD [address] [place] [address] PCP - General 07/07/08 documented as of this encounter
--- OUTSIDE RECORDS SUMMARY | 2024-12-14 11:47 | XMS_ITS | Data Portability ---
Author Organization [facility] [employer], Main Office Address [address] [place] [address] Assessment No assessment recorded. Plan of Treatment Reminders Order Date Submit Date Provider Last Modified By Organization Details Last Modified Time Details Appointments None recorded. Lab calcium, ionized, blood [address] [place] [address] (Lab), [address] [place] [address], [phone], 3 10:51:29 T4, free, serum [address] [place] [address] (Lab), [address] [place] [address], [address], 3 10:51:29 PTH (parathyr oid hormone), intact, serum or plasma [address] [place] [address] (Lab), [address] [place] [address], [address], 3 10:51:29 phosphoru s, serum or plasma [address] [place] [address] (Lab), [address] [place] [address], [address], 3 10:51:29 TSH, serum or plasma [address] [place] [address] (Lab), [address] [place] [address], [address], 3 10:51:29 HbA1c (hemoglob in A1c), blood [address] (Lab), [address] [facility] [address] [facility], [place], [address], 10:51:29 CMP, serum or plasma [address] (Lab), [address] [facility] [address] [place] [address], [address], 10:51:29 Referral None recorded. Procedures None recorded. Surgeries None recorded. Imaging bone density 2022 023 [facility] (Imaging), [address] [place] [address], [address], 11:10:25 Medication Orders None recorded. Patient TargetsNo targets recorded. Patient InstructionsNo instructions recorded. Reason for Referral None Reported. Results Created Date Observation Date Name Description Value Unit Range Abnormal Flag Note LastModifiedBy Organization Detail LastModifiedTime 05/16/20 21 05/16/2021 US, thyro id No observ ation record ed. [id number] [place] [address] (Imaging) [address] [place] [address], [address], 09/05/2022 05:18:19 05/17/20 21 05/16/2021 bone densi ty No observ ation record ed. [id number] [place] [address] (Imaging) [address] [place] [address], [address], 09/05/2022 05:18:19 05/26/20 21 05/16/2021 bone densi ty No observ ation record ed. [id number] [place] [address] (Imaging) [address] [place] [address], [address], 09/05/2022 05:18:19 05/26/20 21 05/16/2021 bone densi ty No observ ation record ed. [id number] [place] [address] (Imaging) [address] [place] [address], [address], 09/05/2022 05:18:19 05/26/20 21 05/16/2021 bone densi ty No observ ation record ed. [id number] [facility] (Imaging) [facility] [address] [facility], [place], [address], 09/05/2022 05:18:19 05/26/20 21 05/16/2021 bone densi ty No observ ation record ed. [id number] [facility] (Imaging) [address] [place] [address] [address] [facility], [place], [address], 09/05/2022 05:18:19 05/26/20 21 05/16/2021 bone densi ty No observ ation record ed. [id number] [place] [address] (Imaging) [address] [place] [address] [place] [address], [address], 09/05/2022 05:18:19 05/26/20 21 05/16/2021 bone densi ty No observ ation record ed. [id number] [facility] (Imaging) [address] [place] [address], [address], 09/05/2022 05:18:19 Result Notes None recorded. 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 3 10:47:36 Problem Notes None recorded. Procedures Surgical History Date Name Laterality Status Provider Name and Address Organization Details Recorded Time release of trigger finger completed Not Available [facility] 09/05/2022 05:05:00 tooth extraction completed Not Available [facility] 09/05/2022 05:05:00 Breast Biopsy completed Not Available [facility] 09/05/2022 05:05:00 Appendectomy completed Not Available [facility] 09/05/2022 05:05:00 Hysterectomy completed Not Available [facility] 09/05/2022 05:05:00 Imaging Results None recorded. Procedure [...] Not available Not available Not available 09/05/2022 34742 8003 SNOMED Not Available [facility] 3 05:17:53 9458 Product containin g penicilli n (product) medicatio n Not available Not available Not available 09/05/2022 48843 8001 SNOMED Not Available [facility] 3 05:17:53 9459 codeine medicatio n Not available Not available Not available 09/05/2022 2670 RxNorm Not Available [facility] 3 05:17:53 9460 Medicinal product containin g cephalosp lyle and acting as antibacte rial agent (product) medicatio n Not available Not available Not available 09/05/2022 03120 9009 SNOMED Not Available [facility] 3 05:17:53 Medications Name Sig Start Date [...] completed Not Available Not Available Not Available [employer] 1.5 billion cell capsule Take 1 capsule [...] Updated DateTime 3 152.4 cm 28.7 kg/m2 16310.8 g 97.4 [degF] 69 /min 150 mm[Hg] 70 mm[Hg] AR Munoz [place] [facility] [place] [employer] 3 10:31:16 Date Recorded Body mass index (BMI) Body height Oxygen saturation Oxygen saturation in Arterial blood by Pulse oximetry Heart rate Body temperature Body weight Systolic blood pressure Diastolic blood pressure Provider Name and Address Organization Details Last Updated DateTime 2 29.3 kg/m2 152.4 cm 98 % 98 % 54 /min 98 [degF] 12478.8 6 g 120 mm[Hg] 80 mm[Hg] Not Available [facility] 3 05:05:58 Date Recorded Body mass index (BMI) Body height Oxygen saturation Oxygen saturation in Arterial blood by Pulse oximetry Heart rate Body temperature Body weight Systolic blood pressure Diastolic blood pressure Provider Name and Address Organization Details Last Updated DateTime 1 30.7 kg/m2 152.4 cm 97 % 97 % 63 /min 98.1 [degF] 15002 g 124 mm[Hg] 64 mm[Hg] Not Available [facility] 3 05:05:57 Date Recorded Body mass index (BMI) Body height Oxygen saturation Oxygen saturation in Arterial blood by Pulse oximetry Heart rate Body temperature Body weight Systolic blood pressure Diastolic blood pressure Provider Name and Address Organization Details Last Updated DateTime 1 29.7 kg/m2 152.4 cm 98 % 98 % 64 /min 98.4 [degF] 99661.0 4 g 176 mm[Hg] 80 mm[Hg] Not Available [facility] 3 05:05:58 Social History Question Answer Notes LastModified by [employer]ISE[employer] ion Details LastModified Time Tobacco Smoking Status Former Smoker Not Available [facility] 09/05/2022 05:01:56 What Is Your Level Of Caffeine Consumption? Moderate [id number] Information not available 09/05/2022 When Did You Quit Smoking? 16+yearssince lastcigarette [id number] Information not available 09/05/2022 What Is Your Relationship Status? [id number] Information not available 09/05/2022 Sex: Unknown Functional Status Question Answer Note LastModified by [employer] ion Details LastModified Time Do you use any illicit or recreational drugs? No [id number] Information not available 09/05/2022 What is your level of alcohol consumption? Occasional [id number] Information not available 09/05/2022 Mental Status None recorded. Family History Nothing Reported. Medical History Condition Response EYE PROBLEMS Y GI PROBLEMS Y HEART DISEASE/HEART PROBLEMS Y Gynecological HistoryNo gynecological history recorded. Obstetrics History GPAL:G 0 P 0 0 0 0 Past Encounters Encounter ID Performer Location Encounter Start Date Encounter Closed Date Diagnosis/Indication Diagnosis SNOMED-CT Code Diagnosis ICD10 Code Diagnosis Note [id number] Cher Villalobos MD [facility] [place] [address] [place] [address] 02/06/2021 00:00:00 02/06/2021 17:05:50 [id number] Cher Villalobos MD [facility] [place] [address] [place] [address] 06/13/2021 00:00:00 06/13/2021 15:22:01 [id number] Cher Villalobos MD [facility] [place] [address] [place] [address] 12/26/2021 00:00:00 12/26/2021 15:28:14 [id number] Cher Villalobos MD [facility] [place] [place] [address] [place] [address] 10/23/2022 10:10:52 10/23/2022 10:53:36 Prediabetes 935414775 R73.03 a1c of 5.8% stable- continue natural insulin dials inspector s such as pears, apples, cinnamon, elayne [...] bone density until this upcoming fall. Osteopenia 755787453 M85 .80 Repeat bone density this fall [...] she chooses to go outside of the [facility] system to obtain labwork she was [...] ID Guarantor Name 10/23/2022 1 GAEL (PPO) [phone] Shefali Mojica [id number] Shefali Mojica Notes Date Note Type Note [...] ng/mLionized calcium 5.2 Cher Villalobos MD [address] [facility] [address], [place], [address], [place] [facility] 10/23/2022 11:08:56 OBGyn Episode No OBEpisode recorded.
--- OUTSIDE RECORDS SUMMARY | 2024-12-14 11:47 | XMS_ITS | Encounter Summary ---
Author Organization [facility] Address 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 Gender Identity Not on file Sexual Orientation Not on file documented as of this encounter Plan of Treatment Not on file documented as of this encounter Procedures Procedure Name Priority Date/Time Associated Diagnosis Comments CANCER ANTIGEN 125 Routine 11/10/2008 12 :53 PM CDT documented in this encounter Results * CANCER ANTIGEN 125 (11/10/2008 12:53 PM CDT) CA 125 7 <=34 U/mL [facility] Comment: Reference Range: CA-125 </= [...] esult INTERFACE SYSTEM Refer to clinic/hospital department [facility] CLIA# [id number] [address] [place] [address] documented in this encounter Visit Diagnoses Diagnosis Abdominal or pelvic swelling, mass, or lump, other specified site documented in this encounter Care Teams Vehicle Sales Professional Relationship Specialty Start Date End Date Joseph Whitman MD [address] [place] [address] PCP - General 07/07/08 documented as of this encounter
--- OUTSIDE RECORDS SUMMARY | 2024-12-14 11:47 | XMS_ITS | Clinical Summary ---
Author Organization [facility] Address [address] [place] [address] Care Team Providers Care Tubing Tester Name Role Phone Joseph Whitman MD Primary Care Provider [phone] Allergies Active Allergy Reactions Criticality Noted Date Comments Cephalosporins Hives High 05/18/2009 Fkaogszir-Ucddiweoh-Nppzbhdx o n Hives High 05/18/2009 Codeine Hives High 05/18/2009 Hydrocodone Hives High 05/18/2009 Penicillins Hives High 05/18/2009 Sulfa (Sulfonamide Antibiotics) Hives,Shortness of Breath/Wheezing High 05/18/2009 Medications esomeprazole (NEXIUM) 40 mg Oral CpDR Take 40 mg by mouth daily before breakfast. Active aspirin (ALLEN) 81 mg Oral Tab Take 81 mg by mouth daily. Active OA-Cqq-Zdzti Acid-Lutein (CENTRUM SILVER) 500-250 mcg Oral Chew [...] of uterine prolapse,Rectoc nadiya,Cystocele,D iverticulitis Administer 1 [place] in each nostril daily. Active LACTOBACILLUS RHAMNOSUS GG (PROBIOTIC ORAL)Indication s:Special screening for osteoporosis,Ot her screening mammogram,Abdom inal or pelvic swelling, mass, or lump, other specified site,Vaginal prolapse without mention of uterine prolapse,Rectoc nadiya,Cystocele,D iverticulitis Take 1 Tab by mouth daily. Active TOBRADEX 0.3-0.1 % ointment 4 Active ipratropium bromide (ATROVENT) 0.06 % [place], Non-Aerosol 4 Active baclofen (LIORESAL) 10 mg tablet 4 Active pantoprazole (PROTONIX) 40 mg Tablet, Delayed Release (E.C.) 5 Active ciprofloxacin HCl (CIPRO) 500 mg tablet 5 Active Active Problems Patient Care Coordination No te Formatting of this note migh t be different from the original. 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 [facility] Procedure Note Karina Gomez MD - 11/10/2013 [...] Advance Directives For more information, please contact: [phone] Documents on File Type Date Recorded Patient Uniform Cap Operator Expl anation Advance Directive POA 06/26/2012 9:59 AM Advance Directive POA Care Teams Tubing Tester Relationship Specialty Start Date End Date Joseph Whitman MD [address] [place] [address] PCP - General 07/07/08
--- OUTSIDE RECORDS SUMMARY | 2024-12-14 11:47 | XMS_ITS | Clinical Summary ---
Author Organization [facility] Address [address] [place] [address] Care Team Providers Care Head Sulfide Operator Name Role Phone Mike Flaherty MD Primary Care Provider [phone] Allergies Active Allergy Reactions Criticality Noted Date Comments Cefaclor Rash Medium Cephalosporins Hives,Rash Medium 05/18/2009 Gqsirpxyu-Nhybakeir-Hnbe ocodon Hives Medium 05/18/2009 Codeine Hives Medium 05/18/2009 Reaction: Hives, , Hydrocodone Hives Medium 05/18/2009 Penicillin Hives Medium 05/22/2017 Penicillins Hives,Rash Medium 05/18/2009 Sulfa (Sulfonamide Antibiotics) Anaphylaxis,Hives, Shortness of breath High 05/18/2009 Other reaction(s): breathing difficulty, red generalized rash , Medications aspirin 81 mg tablet Take one by mouth one time per day 0 0 8 Active L. gasseri-B. 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 MEDICARE ADVANTAGE [facility] MEDICARE Address: [address] [address] [place] [address] [facility] MEDICARE [facility] Address: [address] [place] [address] [facility] MEDICARE ADVANTAGE [facility] MEDICARE Address: [address] [address] [place] [address] [facility] MEDICARE [facility] MEDICARE Care Teams Head Sulfide Operator Relationship Specialty Start Date End Date Mike Flaherty MD PCP - General Family Practice 12/12/23
--- OUTSIDE RECORDS SUMMARY | 2024-12-14 11:47 | XMS_ITS | Data Portability ---
Author Organization [place] [facility],, Judith kessler Address [address] [place] [address] Assessment Encounter Date Assessment Date Assessment LastModified [...] e 5 mg tablet 2014 015 praveen [id number], [address] [facility], [place], [place], [id number], 5 17:39:51 ipratro pium bromide 42 mcg (0.06 %) nasal spray 2012 013 [facility], [address] [place] [address], [address], 3 03:09:36 Patient TargetsNo targets recorded. Patient Instructions Encounter Date Encounter Id Patient Instructions Last Modified By Organization Details Last Modified Time 01/05/2013 [id number] Patient has had a modest response to it. Ectropion bromide nasal spray 0.03% I think a fight, double it to 0.06%. She may have continued improvement. [email or web address] Not available 01/05/2013 12:40:21 10/05/2014 [id number] rhinitis: care instructions [email or web address] Not available 10/05/2014 17:39:51 Reason for Referral None Reported. Problems Name Problem SNOMED Code Status Onset Date Resolution Date Notes Provider Name and Address Organization Details Recorded Time Gastroesophage al reflux disease 442244945 Active MD [address], [place], [address] , [place] [facility], 5 16:36:13 Chronic rhinitis 07079988 Active MD [address], [place], [address] , [place] [facility], 5 17:39:51 Problem Notes None recorded. Medical Equipment None Reported. Allergies Allergen ID Allergen Name Allergen Category Reaction Reaction Severity Criticality Documentation Date Start Date Code Code System Note Provider Name and Address Organization Details Recorded Time 9725 Product containin g penicilli n (product) medicatio n other mild Not available 01/05/2013 48062 8001 SNOMED Maria birch, [place] [facility], 3 12:06:47 9726 Substance with sulfonami de structure and antibacte rial mechanism of action (substanc e) medicatio n other mild Not available 01/05/2013 58083 8003 SNOMED Maria birch[place] [facility], 3 12:06:47 9727 codeine medicatio n other mild Not available 01/05/2013 2670 RxNorm Maria birch [place] [facility], 3 12:06:47 9728 Medicinal product containin g cephalosp lyle and acting as antibacte rial agent (product) medicatio n other mild Not available 01/05/2013 15379 9009 SNOMED Maria birch [place] [facility] [...] bromide 21 mcg (0.03 %) nasal spray [place] 2 sprays twice a day by intranasal [...] Address Organization Details Last Updated DateTime 5 56160.5 5631 g 30.8 kg/m2 154.94 cm 98.2 [degF] 158 mm[Hg] 76 mm[Hg] Leonie Vivar [place] [facility], 5 16:17:10 Date Recorded Body height Body weight Body temperature Body mass index (BMI) Systolic blood pressure Diastolic blood pressure Provider Name and Address Organization Details Last Updated DateTime 3 154.94 cm 14253.3 3342 g 98 [degF] 31.4 kg/m2 124 mm[Hg] 66 mm[Hg] Maria Garcia [place] [facility], 3 12:03:43 Social History Question Answer Notes LastModified by [employer] Details LastModified Time Tobacco Smoking Status Former Smoker Not Available [employer] 05/10/2020 03:24:57 Marital Status [email or web address] Informatio n not available 01/05/2013 Sex: Unknown Functional Status Question Answer Note LastModified by [employer] Details LastModified Time What is your level of alcohol consumption? Occasional [id number] Information not available 05/10/2020 Mental Status None recorded. Family History Relationship Description Onset Age of this Age Resolved Age Notes LastModified by Organization Details LastModified Time Mother Old-age 94 [email or web address] Not available 0 10/05/2014 16:17:52 Father Congestive heart failure 84 [email or web address] Not available 2014 16:17:52 Medical History Condition Response Coronary Artery Disease N Gout N Kidney Stones N Hyperthyroidism N Stress N Hypothyroidism N Depression N COPD N Anxiety Disorder [...] SNOMED-CT Code Diagnosis ICD10 Code Diagnosis Note [id number] Steven rivers MD OFFICE [address] [place] [address] 8 01/05/2013 11:18:28 01/05/2013 14:19:32 [id number] Steven rivers MD OFFICE [address] [place] [address] 8 10/05/2014 15:57:28 10/05/2014 16:51:02 Chronic rhinitis 29655878 Health Concerns Section Related Observation LastModified by Organization Detai ls LastModified Time None Recorded Concern Status LastModified by Organization Details LastModified Time None Recorded Advance Directives Directive None Recorded Payers Encounter Date Sequence Insurance Name Policy Number Policy Cain Covered Member ID Cain Member ID Guarantor Name 01/05/2013 1 [place] Shefali Mojica [id number] Shefali Mojica 01/05/2013 1 [facility] [id number] Shefali Mojica [id number] Shefali Mojica 10/05/2014 1 [facility] (MEDICARE REPLACEMENT/ ADVANTAGE - PPO) [id number] Shefali Mojica [id number] Shefali Mojica Notes Date Note Type Note [...] Steven Betancourt MD [address], [place], [address], [facility], 01/05/2013 12:43:41 [...] Steven Betancourt MD [address], [place], [address], [facility], 10/05/2014 17:40:03 OBGyn Episode No OBEpisode recorded.
--- OUTSIDE RECORDS SUMMARY | 2024-12-14 11:47 | XMS_ITS | Encounter Summary ---
Author Organization [facility] Address [address] [facility] [address] [place] [address] Care Team Providers Care Vault Clerk Name Role Phone Denis Ventura MD Primary Care Provider [phone] Denis Ventura MD Primary Care Provider Royer Whelan DO Primary Care Provider [phone] Royer Whelan DO Primary Care Provider [phone] Royer Whelan DO Unavailable Osman Gaspar MD Primary Care Provider [phone] Mike Flaherty MD Primary Care Provider [phone] Encounter Details Date Type Department Care Team (Late st Contact Info) Description 07/12/2016 Orders Only [facility] ProviderStefany MD [address] [place] [address] Social History Tobacco Use Types Packs/Day Years Used Date Smoking Tobacco: Former Comments:Smoking History Pac ks/day: 0.25 Packs Alcohol Use Standard Drinks/Week Comments No 0 (1 standard drink = 0.6 oz pur e alcohol) Comments Unknown Sex and Gender Information Value Date Recorded Sex Assigned at Not on file Legal Sex Female 11:20 PM 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
--- OUTSIDE RECORDS SUMMARY | 2024-12-14 11:47 | XMS_ITS | Referral Summary ---
Author Organization [facility] Address [address] [place] [address] Care Team Providers Care Willow Analyst Name Role Phone Mike Flaherty MD Primary Care Provider [phone] Allergies Active Allergy Reactions Criticality Noted Date Comments Cefaclor Rash Medium Cephalosporins Hives,Rash Medium 05/18/2009 Jvykwzkuu-Hgatppgyd-Jwcl ocodon Hives Medium 05/18/2009 Codeine Hives Medium 05/18/2009 Reaction: Hives, , Hydrocodone Hives Medium 05/18/2009 Penicillin Hives Medium 05/22/2017 Penicillins Hives,Rash Medium 05/18/2009 Sulfa (Sulfonamide Antibiotics) Anaphylaxis,Hives, Shortness of breath High 05/18/2009 Other reaction(s): breathing difficulty, red generalized rash , Medications aspirin 81 mg tablet Take one by mouth one time per day 0 0 8 Active L. gasseri-B. 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
== END 2024-12-14 10:29 | disposition home or self-care (01) ==
PROVIDERS: PCP Family Medicine; Visit Provider Internal Medicine
DX: R73.03 Prediabetes (principal); E21.3 Hyperparathyroidism, unspecified; E04.1 Nontoxic single thyroid nodule; E66.3 Overweight; E78.5 Hyperlipidemia, unspecified; I10 Essential (primary) hypertension
CPT/HCPCS: 76536

== ENCOUNTER 2025-03-15 08:25 | Outpatient (CLI) | payer MEDICARE, SELFPAY ==
--- OUTSIDE RECORDS SUMMARY | 2025-03-15 08:38 | XMS_ITS | Clinical Summary ---
Author Organization [facility] Address [address] [place] [address] Care Team Providers Care Costume Mistress Name Role Phone Mike Flaherty MD Primary Care Provider [phone] Allergies Active Allergy Reactions Criticality Noted Date Comments Cefaclor Rash Medium Cephalosporins Hives,Rash Medium 05/18/2009 Znyjohkjo-Dmknticgm-Rwha ocodon Hives Medium 05/18/2009 Codeine Hives Medium 05/18/2009 Reaction: Hives, , Hydrocodone Hives Medium 05/18/2009 Penicillin Hives Medium 05/22/2017 Penicillins Hives,Rash Medium 05/18/2009 Sulfa (Sulfonamide Antibiotics) Anaphylaxis,Hives, Shortness of breath High 05/18/2009 Other reaction(s): breathing difficulty, red generalized rash , Medications aspirin 81 mg tablet Take one by mouth one time per day 0 0 8 Active L. gasseri-B. 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 Gender Identity Female 08/12/2020 5:16 PM CHEMISTRY PHYSICS TEACHER Sexual Orientation Not on file Obstetrics History [...] Zoster Vaccine (2 of 3) 06/16/2012 04/21/2012 Osteoporosis Screening-Bone Density Scan 11/30/2016 11/30/2014, 11/30/2014, 11/17/2014, Additional history exists Covid-19 Vaccine (3 - 2023-2 5 season) 2024 09/08/2020, 08/18/2020 Influenza Vaccine (#1) 2025 9, 04/02/2018, 04/03/2017, Additional history exists DTaP/Tdap/Td Vaccine (3 - Td or Tdap) 11/13/2028 11/13/2018, 04/16/2016 Pneumococcal vaccine 65+ Completed 06/16/2015, 11/2010 Procedures [...] Most Recently Relevant to Health Maintenance Insurance [facility] MEDICARE ADVANTAGE [facility] MEDICARE [facility] Address: [address] [place] [address] [facility] MEDICARE ADVANTAGE [facility] Address: [facility] [id number] [place] [address] [facility] Address: [facility] [id number] [place] [address] Care Teams Costume Mistress Relationship Specialty Start Date End Date Mike Flaherty MD PCP - General Family Practice 12/12/23
--- OUTSIDE RECORDS SUMMARY | 2025-03-15 08:38 | XMS_ITS | Clinical Summary ---
Author Organization [facility] Address [address] [place] [address] Care Team Providers Care Entry Rep Name Role Phone Jospeh Whitman MD Primary Care Provider [phone] Allergies Active Allergy Reactions Criticality Noted Date Comments Cephalosporins Hives High 05/18/2009 Aoxmdracz-Rqkxgcdty-Ytzawnej o n Hives High 05/18/2009 Codeine Hives High 05/18/2009 Hydrocodone Hives High 05/18/2009 Penicillins Hives High 05/18/2009 Sulfa (Sulfonamide Antibiotics) Hives,Shortness of Breath/Wheezing High 05/18/2009 Medications esomeprazole (NEXIUM) 40 mg Oral CpDR Take 40 mg by mouth daily before breakfast. Active aspirin (ALLEN) 81 mg Oral Tab Take 81 mg by mouth daily. Active HW-Pqo-Qjcpy Acid-Lutein (CENTRUM SILVER) 500-250 mcg Oral Chew [...] of uterine prolapse,Rectoc nadiya,Cystocele,D iverticulitis Administer 1 [place] in each nostril daily. Active LACTOBACILLUS RHAMNOSUS GG (PROBIOTIC ORAL)Indication s:Special screening for osteoporosis,Ot her screening mammogram,Abdom inal or pelvic swelling, mass, or lump, other specified site,Vaginal prolapse without mention of uterine prolapse,Rectoc nadiya,Cystocele,D iverticulitis Take 1 Tab by mouth daily. Active TOBRADEX 0.3-0.1 % ointment 4 Active ipratropium bromide (ATROVENT) 0.06 % [place], Non-Aerosol 4 Active baclofen (LIORESAL) 10 mg tablet 4 Active pantoprazole (PROTONIX) 40 mg Tablet, Delayed Release (E.C.) 5 Active ciprofloxacin HCl (CIPRO) 500 mg tablet 5 Active Active Problems Patient Care Coordination No te Formatting of this note migh t be different from the original. 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 [facility] [place] Procedure Note Karina Gomez MD - 11/10/2013 [...] Advance Directives For more information, please contact: [phone] Documents on File Type Date Recorded Patient Tower Watchman Expl anation Advance Directive POA 06/26/2012 9:59 AM Advance Directive POA Care Teams Entry Rep Relationship Specialty Start Date End Date Joseph Whitman MD [address] [place] [address] PCP - General 07/07/08
--- OUTSIDE RECORDS SUMMARY | 2025-03-15 08:38 | XMS_ITS | Encounter Summary ---
Author Organization [facility] Address [address] [facility] [address] [place] [address] Care Team Providers Care Rn Procedure Name Role Phone Denis Ventura MD Primary Care Provider [phone] Denis Ventura MD Primary Care Provider [phone] Royer Whelan DO Primary Care Provider [phone] Royer Whelan DO Primary Care Provider Royer Whelan DO Unavailable Osman Gaspar MD Primary Care Provider [phone] Mike Flaherty MD Primary Care Provider [phone] Encounter Details Date Type Department Care Team (Late st Contact Info) Description 07/12/2016 Orders Only [facility] ProviderStefany MD [address] [place] [address] Social History Tobacco Use Types Packs/Day Years Used Date Smoking Tobacco: Former Comments:Smoking History Pac ks/day: 0.25 Packs Alcohol Use Standard Drinks/Week Comments No 0 (1 standard drink = 0.6 oz pur e alcohol) Comments Unknown Sex and Gender Information Value Date Recorded Sex Assigned at Not on file 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
--- OUTSIDE RECORDS SUMMARY | 2025-03-15 08:39 | XMS_ITS | Encounter Summary ---
Author Organization [facility] Address [address] [place] [address] Care Team Providers Care Tie Fastener Name Role Phone Joseph Whitman MD Primary Care Provider [phone] Encounter Details Date Type Department Care Team (Latest Contact Info) Description 11/10/2008 Outpatient Historical [facility] COAGULATION OPERATOR - Medical [place] [address] [facility] [place] [address] Mauro Uribe MD [address] [facility] [address] [place] [address] Abdominal or Pelvic Swelling, Mass, or Lump, Other Specified Site Social History Tobacco Use Types Packs/Day Years Used Date Smoking Tobacco: Never Assessed Comments Unknown Sex and Gender Information Value Date Recorded Sex Assigned at Not on file 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 Gender Identity Not on file Sexual Orientation Not on file documented as of this encounter Plan of Treatment Not on file documented as of this encounter Procedures Procedure Name Priority Date/Time Associated Diagnosis Comments CANCER ANTIGEN 125 Routine 11/10/2008 12 :53 PM CDT documented in this encounter Results * CANCER ANTIGEN 125 (11/10/2008 12:53 PM CDT) CA 125 7 <=34 U/mL [facility] Comment: Reference Range: CA-125 [...] INTERFACE SYSTEM Refer to clinic/hospital department [facility] CLIA# [id number] [address] [place] [address] documented in this encounter Visit Diagnoses Diagnosis Abdominal or pelvic swelling, mass, or lump, other specified site documented in this encounter Care Teams Tie Fastener Relationship Specialty Start Date End Date Joseph Whitman MD [address] [place] [address] PCP - General 07/07/08 documented as of this encounter
--- OUTSIDE RECORDS SUMMARY | 2025-03-15 08:39 | XMS_ITS | Encounter Summary ---
Author Organization [facility] Address [address] [place] [address] Care Team Providers Care Lye Peel Operator Name Role Phone Joseph Whitman MD Primary Care Provider [phone] Encounter Details Date Type Department Care Team (Latest Contact Info) Description 11/10/2008 Outpatient Historical [facility] PRODUCTION TEAM ADVISOR - Medical [place] [address] [facility] [address] [address] Mauro Uribe MD [address] [facility] [address] [place] [address] Postmenopausal Atrophic Vaginitis Social History Tobacco Use Types Packs/Day Years Used Date Smoking Tobacco: Never Assessed Comments Unknown Sex and Gender Information Value Date Recorded Sex Assigned at Not on file 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 Endocervical/trans formation zone component present. [facility] CLINICAL INFORMATION ansi Normal exam Postmenopausal [facility] REPORT STATUS FINAL [facility] PAP INTERP Negative for intraepithelial lesion or malignancy. [facility] PREV BX: Information not provided [facility] Sales Representative [employer] Pap Comment Based on the cytology result, reflex High Risk HPV DNA testing was not performed. [facility] Specimen from uterine cervix (specimen) 11/10/2008 8:22 PM CDT 11/10/2008 8:45 PM CDT us Mauro Uribe MD PATHOLOGY/CYTOLOGY ORDERABLE S Final Result INTERFACE SYSTEM Refer to clinic/hospital department [facility] CLIA# [id number] [address] [place] [address] documented in this encounter Visit Diagnoses Diagnosis Postmenopausal atrophic vaginitis documented in this encounter Care Teams Lye Peel Operator Relationship Specialty Start Date End Date Joseph Whitman MD [address] [place] [address] PCP - General 07/07/08 documented as of this encounter
[2025-03-15 08:53] LABS: Hematocrit 40.5 % (37.0-47.0); Hemoglobin 12.9 g/dL (12.0-15.0); Immature Granulocyte Percent A 0.4 % (0-0.5); Lymphocytes Absolute Auto 1.50 K/mm3 (0.9-3.2); Mean Corpuscular HGB Conc 31.9 g/dl (32-36); Mean Corpuscular Hemoglobin 30.0 pg (26-34); Mean Corpuscular Volume 94.2 fl (80-100); Nucleated Red Blood Cells Absolute Auto 0.000 K/mm3 (0.0-0.012); Nucleated Red Blood Cells Perc 0.0 % (0.0-0.2); Platelet Count Result 204 k/mm3 (150-375); Red Blood Count 4.30 M/mm3 (4.2-5.4); White Blood Count 4.9 K/mm3 (4.5-10.0)
[2025-03-15 09:18] LABS: Hemoglobin A1C 5.9 % (<5.7)
[2025-03-15 09:36] LABS: Cholesterol 217 mg/dL (0-200); HDL Direct 60 mg/dL; Triglycerides 138 mg/dL (<150)
== END 2025-03-15 08:26 | disposition home or self-care (01) ==
LOC: ANHLAB 08:26
PROVIDERS: PCP Family Medicine; Visit Provider Family Medicine
DX: H35.3190 Nonexudative age-related macular degeneration, unspecified eye, stage unspecified (principal); R73.03 Prediabetes; I50.9 Heart failure, unspecified; F41.1 Generalized anxiety disorder; E21.3 Hyperparathyroidism, unspecified; G62.9 Polyneuropathy, unspecified; Z00.00 Encounter for general adult medical examination without abnormal findings
CPT/HCPCS: 36415; 80061; 83036; 85025

== ENCOUNTER 2025-03-26 10:50 | Emergency (ER) | payer MEDICARE, SELFPAY ==
--- NOTE | ~2025-03-26 | XR_ITS ---
Examination: XR chest 2V Clinical History: cough and congestion Comparison: 05/29/2023 Technique: PA and Lateral Findings: Cardiomediastinal silhouette normal size and configuration. Lungs clear. No acute bony abnormality. Osteopenia. IMPRESSION: 1. No acute cardiopulmonary findings. Reviewed, dictated and finalized at location R.
--- OUTSIDE RECORDS SUMMARY | 2025-03-26 10:54 | XMS_ITS | Encounter Summary ---
Author Organization [facility] Address [address] [place] [address] Care Team Providers Care Clinical Psychology Teacher Name Role Phone Joseph Whitman MD Primary Care Provider [phone] Encounter Details Date Type Department Care Team (Latest Contact Info) Description 11/10/2008 Outpatient Historical [facility] LONG CHAIN QUILLER TENDER - Medical [place] [address] [facility] [address] [address] Mauro Uribe MD [address] [facility] [address] [place] [address] Abdominal or Pelvic Swelling, Mass, or Lump, Other Specified Site Social History Tobacco Use Types Packs/Day Years Used Date Smoking Tobacco: Never Assessed Comments Unknown Sex and Gender Information Value Date Recorded Sex Assigned at Not on file 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
--- OUTSIDE RECORDS SUMMARY | 2025-03-26 10:54 | XMS_ITS | Clinical Summary ---
Author Organization [facility] Address [address] [place] [address] Care Team Providers Care Adjunct Business Instructor Name Role Phone Joseph Whitman MD Primary Care Provider [phone] Allergies Active Allergy Reactions Criticality Noted Date Comments Cephalosporins Hives High 05/18/2009 Temdpfdbx-Smdgjacov-Hbxpwnbx o n Hives High 05/18/2009 Codeine Hives High 05/18/2009 Hydrocodone Hives High 05/18/2009 Penicillins Hives High 05/18/2009 Sulfa (Sulfonamide Antibiotics) Hives,Shortness of Breath/Wheezing High 05/18/2009 Medications esomeprazole (NEXIUM) 40 mg Oral CpDR Take 40 mg by mouth daily before breakfast. Active aspirin (ALLEN) 81 mg Oral Tab Take 81 mg by mouth daily. Active MV-Lue-Ncvvs Acid-Lutein (CENTRUM SILVER) 500-250 mcg Oral Chew [...] of uterine prolapse,Rectoc nadiya,Cystocele,D iverticulitis Administer 1 Columbia in each nostril daily. Active LACTOBACILLUS RHAMNOSUS GG (PROBIOTIC ORAL)Indication s:Special screening for osteoporosis,Ot her screening mammogram,Abdom inal or pelvic swelling, mass, or lump, other specified site,Vaginal prolapse without mention of uterine prolapse,Rectoc nadiya,Cystocele,D iverticulitis Take 1 Tab by mouth daily. Active TOBRADEX 0.3-0.1 % ointment 4 Active ipratropium bromide (ATROVENT) 0.06 % [place], Non-Aerosol 4 Active baclofen (LIORESAL) 10 mg tablet 4 Active pantoprazole (PROTONIX) 40 mg Tablet, Delayed Release (E.C.) 5 Active ciprofloxacin HCl (CIPRO) 500 mg tablet 5 Active Active Problems Patient Care Coordination No te Formatting of this note migh t be different from the original. 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 [facility] Note Karina Gomez MD - 11/10/2013 [...] Advance Directives For more information, please contact: [phone] Documents on File Type Date Recorded Patient Cow Tester Expl anation Advance Directive POA 06/26/2012 9:59 AM Advance Directive POA Care Teams Adjunct Business Instructor Relationship Specialty Start Date End Date Joseph Whitman MD [address] [place] [address] PCP - General 07/07/08
--- OUTSIDE RECORDS SUMMARY | 2025-03-26 10:54 | XMS_ITS | Encounter Summary ---
Author Organization [facility] Address [address] [place] [address] Care Team Providers Care Labor Relations Supervisor Name Role Phone Joseph Whitman MD Primary Care Provider [phone] Encounter Details Date Type Department Care Team (Latest Contact Info) Description 11/10/2008 Outpatient Historical [facility] KEY ACCOUNT COORDINATOR - Medical [place] [address] [facility] [address] [address] Mauro Uribe MD [address] [facility] [address] [place] [address] Postmenopausal Atrophic Vaginitis Social History Tobacco Use Types Packs/Day Years Used Date Smoking Tobacco: Never Assessed Comments Unknown Sex and Gender Information Value Date Recorded Sex Assigned at Not on file 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 Gender Identity Not on file Sexual Orientation Not on file documented as of this encounter Plan of Treatment Not on file documented as of this encounter Procedures Procedure Name Priority Date/Time Associated Diagnosis Comments CERV/VAG CYTOPATH, SUREPATH W/RFLX HPV Routine 11/10/2008 8:22 PM CDT documented in this encounter Results * CERV/VAG CYTOPATH, SUREPATH W/RFLX HPV (11/10/2008 8:22 PM CDT) SOURCE Cervix, Endocervix S [facility] LAST MENSTRUAL PERIOD 1991 [facility] CYTOTECHNOLOGI ST: MVW, CT(ASCP) [facility] Comment: Lab test performed by: [facility] [address] [place] [id number] FLORINA BABIN MD PREV PAP: Information not provided [facility] ADEQUACY: ansi Satisfactory for evaluation. Endocervical/trans formation zone component present. [facility] CLINICAL INFORMATION ansi Normal exam Postmenopausal [facility] REPORT STATUS FINAL [facility] PAP INTERP Negative for intraepithelial lesion or malignancy. [facility] PREV BX: Information not provided [facility] Architectural Intern Pap Comment Based on the cytology result, reflex High Risk HPV DNA testing was not performed. [facility] Specimen from uterine cervix (specimen) 11/10/2008 8:22 PM CDT 11/10/2008 8:45 PM CDT us Mauro Uribe MD PATHOLOGY/CYTOLOGY ORDERABLE S Final Result INTERFACE SYSTEM Refer to clinic/hospital department [facility] CLIA# [id number] [address] [place] [address] documented in this encounter Visit Diagnoses Diagnosis Postmenopausal atrophic vaginitis documented in this encounter Care Teams Labor Relations Supervisor Relationship Specialty Start Date End Date Joseph Whitman MD [address] [place] [address] PCP - General 07/07/08 documented as of this encounter
--- OUTSIDE RECORDS SUMMARY | 2025-03-26 10:54 | XMS_ITS | Clinical Summary ---
Author Organization [facility] Address [address] [place] [address] Care Team Providers Care Otr Flatbed Driver Name Role Phone Mike Flaherty MD Primary Care Provider [phone] Allergies Active Allergy Reactions Criticality Noted Date Comments Cefaclor Rash Medium Cephalosporins Hives,Rash Medium 05/18/2009 Nrnzqsxyf-Tbhmuivpv-Iqyk ocodon Hives Medium 05/18/2009 Codeine Hives Medium 05/18/2009 Reaction: Hives, , Hydrocodone Hives Medium 05/18/2009 Penicillin Hives Medium 05/22/2017 Penicillins Hives,Rash Medium 05/18/2009 Sulfa (Sulfonamide Antibiotics) Anaphylaxis,Hives, Shortness of breath High 05/18/2009 Other reaction(s): breathing difficulty, red generalized rash , Medications aspirin 81 mg tablet Take one by mouth one time per day 0 0 8 Active L. gasseri-B. 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 Gender Identity Female 08/12/2020 5:16 PM CORPORATE COMPLIANCE DIRECTOR Sexual Orientation Not on file Obstetrics History [...] Additional history exists Covid-19 Vaccine (3 - 2024-2 6 season) 2025 09/08/2020, 08/18/2020 Influenza Vaccine (#1) 2025 9, [...] Most Recently Relevant to Health Maintenance Insurance [facility] Address: [address] [address] [place] [address] COUNT INCLUDES THE [facility] MEDICARE INCLUDES THE [facility]IC[facility] Address: [address] [place] [address] [facility] Address: [address] [address] [place] [address] COUNT INCLUDES THE [facility] MEDICARE [facility] Address: [facility] [id number] [place] [address] COUNT INCLUDES THE [facility]IC[facility] Address: [facility] [id number] [place] [address] Care Teams Otr Flatbed Driver Relationship Specialty Start Date End Date Mike Flaherty MD PCP - General Family Practice 12/12/23
--- OUTSIDE RECORDS SUMMARY | 2025-03-26 10:54 | XMS_ITS | Encounter Summary ---
Author Organization [facility] Address [address] [facility] [address] [place] [address] Care Team Providers Care Director Validation Name Role Phone Denis Ventura MD Primary Care Provider [phone] Denis Ventura MD Primary Care Provider Royer Whelan DO Primary Care Provider Royer Whelan DO Primary Care Provider [phone] Royer Whelan DO Unavailable Osman Gaspar MD Primary Care Provider [phone] Mike Flaherty MD Primary Care Provider [phone] Encounter Details Date Type Department Care Team (Late st Contact Info) Description 07/12/2016 Orders Only [facility] ProviderStefany MD [address] [place] [address] Social History Tobacco Use Types Packs/Day Years Used Date Smoking Tobacco: Former Comments:Smoking History Pac ks/day: 0.25 Packs Alcohol Use Standard Drinks/Week Comments No 0 (1 standard drink = 0.6 oz pur e alcohol) Comments Unknown Sex and Gender Information Value Date Recorded Sex Assigned at Not on file 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
[2025-03-26 10:58] VITALS: BP 122/68; PULSE 69; RESP 16; TEMP 36.3; O2SAT 96
--- NOTE | 2025-03-26 11:02 | ED_ITS ---
HPI - URI/Sore Throat General Chief Complaint: Upper Respiratory Infection Stated Complaint: chest congestion Time Seen by Provider: 03/26/25 11:07 Source: patient, RN notes reviewed and old records reviewed Mode of arrival: ambulatory Limitations: no limitations History of Present Illness HPI Narrative: 89 year old female presents to [facility] care with complaints of sinus congetion with drainage and cough for one week duration. Patient reports that she has not had any known fevers chills or sweats, denies any nausea or vomiting or diarrhea. Patient reports history of IA 8 years and history of congestive heart failure. Patient denies any recent swelling, weight gain or acute dyspenea. Patient reports that she has been using her nasal spray and taking Nela and also Robitussin cough syrup. MD elicited complaint: cough and sore throat Pertinent past history: other (CHF, IA) Onset (ago): week(s) (1) Severity: moderate Able to tolerate fluids by mouth: Yes Treatments prior to arrival: other (Nela,nasal spray, Robittusin cough syrup) Related Data Home Medications ?Medication ?Instructions ?Recorded ?Confirmed ?Last Taken ?Type Lactobacills gasseri-Bifidobac 1 cap PO DAILY 05/01/20 04/23/24 05/01/20 08:00 History bifidum,longum 1.5 billion cell capsule (Tabacus Initative) aspirin 81 mg tablet,delayed 81 mg PO DAILY 05/01/20 1 05/01/20 08:00 History release cranberry fruit 400 mg capsule 400 mg PO DAILY 0 04/23/24 05/01/20 08:00 History glucosamine sulf dipot 2 cap PO BID 05/01/2005/01/20 08:00 History chlr,msm,chond 550 mg-C 30 mg-genevieve 1 mg capsule (Glucosamine Chondroitin) vit C 250 mg-vit E 90 mg-zinc 40 1 tablet PO BID 05/0104/23/24 05/01/20 08:00 History mg-copper 1 ms-dlsxtg-jpbult capsule (PreserVision AREDS-2) famotidine 20 mg tablet (Acid-Pep) 20 mg PO DAILY 08/09 10/30 Unknown History fluticasone propionate 50 1 spray intranasal ONCE 08/09 10/30 Unknown History mcg/actuation nasal spray,suspension (Flonase Allergy Relief) Allergies Allergy/AdvReac Type Severity Reaction Status Date / Time Sulfa (Sulfonamide Allergy Severe Anaphylaxis Verified 03/26/25 10:54 Antibiotics) Cephalosporins AdvReac Mild Hives Verified 03/26/25 10:54 codeine AdvReac Mild Hives Verified 03/26/25 10:54 hydrocodone AdvReac Mild Hives Verified 03/26/25 10:54 Penicillins AdvReac Mild Hives Verified 03/26/25 10:54 Review of Systems Review of Systems: CONSTITUTIONAL: Reports malaise, no chills, sweats, or fever. EYES: Denies visual changes, redness, or discharge. ENT: Reports rhinorrhea, congestion, sinus pain, no otalgia and no sore throat. CARDIOVASCULAR: Denies chest pain, palpitations, or edema. RESPIRATORY: Reports cough.? Denies dyspnea. GASTROINTESTINAL: Denies abdominal pain, nausea, vomiting, diarrhea SKIN: Denies rash or itching. MUSCULOSKELETAL: Denies myalgia. NEUROLOGIC: Denies headache. All systems reviewed & are unremarkable except as noted in HPI and below PMFSH Past Medical History Medical History Macular degeneration on ared History of non-ST elevation myocardial infarction (NSTEMI) Congestive heart failure in 2017 she was noted to have impaired diastolic relaxation grade 1 any ejection fraction at 36%. 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 Thumb pain Trigger finger Elevated parathyroid hormone Gastro-esophageal reflux disease without esophagitis (04/03/19) Generalized anxiety disorder Hypercalcemia Lump in neck Plantar fasciitis of right foot Postmenopausal Takotsubo cardiomyopathy Surgical History Surgical History Hx of appendectomy Cataract extraction status H/O: hysterectomy H/O cardiac catheterization Family History Family History Sibling Patient's brother is in good health 1 brother is healthy but the other brother from lung cancer Lung cancer 1 brother is healthy and the other brother from lung cancer Mother Family history of Parkinson's disease Patient's mother is Father Family history of congestive heart failure Patient's father is Other Family history of malignant neoplasm Social History Social History Social History: the patient stated that she lives with her and he is 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 The patient stated that she quit smoking about 37 years ago. She has 4 children. 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 No alcohol marijuana or illicit drugs. Smoking packs per day: 0.5 Smoking cigarettes per day: 10.0 Years smoked: 20 Smoking pack-years: 10.00 Smoking status: Former smoker Smoking end date: 12/25/81 Alcohol intake: never Substance use: never Substance use type: does not use Lack of Transportation: No Lack of Food: Never True Current Housing: I Have Housing Concerned About Future Housing: No Difficulty Paying Gas/Electric Bills: No Difficulty Paying for Meds: No Currently Unemployed: No Education: High School Diploma/GED Difficulty w/ Childcare or Family Care: No Living arrangements: with family Occupation/Education: retired Gender identity (if verbalized by the patient): Female Spiritual care concerns: No Comments At time of signature, agree with nursing past medical, surgical, social and family history. There is no relevant family history pertinent to the presenting complaint Exam Narrative: GENERAL: Well-appearing, well-nourished, and in no acute distress. HEAD: Normocephalic EYES: PERRLA, conjunctivae clear ENT: Nares clear, turbinates edematous and erythematous, clear discharge, sinus pressure. Mucous membranes moist. TM pearly goff with dull light reflex bilaterally; no tragal tenderness. Oropharynx erythematous without lesions. Tonsils not present and throat without exudate, no drooling, no hoarseness, no trismus, uvula midline.post nasal drainage NECK: Supple. No lymphadenopathy CHEST: Decreased on auscultation, breath sounds equal. No wheezing, rhonchi, rales, or stridor. No respiratory distress, speaks in full sentences.frequent cough, SAO2 96% on room air HEART: Regular rate and rhythm. No murmur heard. SKIN: Warm, dry, no rash. NEURO: Alert and oriented x3. PSYCH: Normal mood and affect Course Course Emergency Course: Patient is aware of diagnosis, understands and agrees to treatment plan.? Anticipatory guidance given.? Patient agrees to follow-up as directed and is aware of reasons to seek care at the emergency department. Portions of this record may have been created with voice recognition software Level of Care: Express Care Visit Vital Signs Vital signs: Vital Signs Temperature 36.3 C L 03/26/25 10:58 Pulse Rate 69 03/26/25 10:58 Respiratory Rate 16 03/26/25 10:58 Blood Pressure 122/68 03/26/25 10:58 Pulse Oximetry 96 03/26/25 10:58 Oxygen Delivery Room Air 03/26/25 10:58 Temperature 36.3 C L 03/26/25 10:58 Pulse Rate 69 03/26/25 10:58 Respiratory Rate 16 03/26/25 10:58 Blood Pressure 122/68 03/26/25 10:58 Pulse Oximetry 96 03/26/25 10:58 Oxygen Delivery Room Air 03/26/25 10:58 Reviewed MDM - URI/Sore Throat MDM Narrative Medical decision making narrative: Differential diagnosis considered: Menjivar virus, strep pharyngitis, allergic rhinitis, upper respiratory tract infection, sinusitis, rhinosinusitis, nasoph aryngitis. viral pharyngitis, otitis media, otitis externa, pneumonia, bronchitis, viral cough syndrome, viral syndrome, and influenza.? Exam findings show no acute concerns or changes; patient is non-toxic appearing and is in no distress.? Patient is appropriate for outpatient treatment and follow-up. Differential Diagnosis Differential diagnosis: Likely upper respiratory infection, sinusitis, viral infection, bronchitis and other (acute cough) Medical Records Attestation: I reviewed the patient's medical records. Lab Data Attestation: I reviewed the patient's lab results. Imaging Data Attestation: I personally reviewed and interpreted this imaging study as follows: My impression: no acute cardiopulmonary findings Radiologist's impression: [address] [address] XRay Report Signed Patient: Shefali Mojica : 1935 MR#: [id number] Age: 89 Acct:[id number] Loc: [facility] ADM Date: 03/26/25Attending Dr: Ordering Physician: Dyana Frey APRN Date of Service: 03/26/25 Procedure(s): XR chest 2V Accession Number(s): [id number] cc: Mike Flaherty MD; Dyana Frey APRN~ Examination: XR chest 2V Clinical History: cough and congestion Comparison: 05/29/2023 Technique: PA and Lateral Findings: Cardiomediastinal silhouette normal size and configuration. Lungs clear. No acute bony abnormality. Osteopenia. IMPRESSION: 1. No acute cardiopulmonary findings. Reviewed, dictated and finalized at location R. Please be advised this is a medical document. It is intended for [id number] communication. It is written in medical language and may contain unfamiliar abbreviations or verbiage. Medical documents are intended to carry relevant information, facts as evident, and the clinical opinion of the practitioner at the time of the encounter. This report may have been done utilizing a voice recognition system. Attempts have been made to correct errors. However, there may be uncorrected grammatical, spelling, and recognition errors present. The file time of this note does not necessarily represent the time of service. Dictated By: Itz Wick MD 03/26/25 1123 Signed By: <Electronically signed by Itz Wick MD in OV> Critical Care Time Critical Care Time Critical Care Time: No Discharge Plan Discharge Clinical Impression: Bacterial sinusitis, Acute cough Patient Disposition: Home Condition: Stable Instructions: Antibiotic Form Additional Instructions: Increase fluids especially juices and water Imqd-gxj-npqpkib cough and cold medicine of your choice for your symptoms Continue your nasal spray as prescribed Tylenol or ibuprofen for any fever pain Continue your Nela daily Steroids as directed--take with food heat to the face 20-30 minutes 4-6 times a day for pain Salt water gargles, throat lozenges or throat sprays as desired Antibiotic as directed--finished the medication If your symptoms persist, change or worsen significantly before you can contact your personal physician then please, without delay, go to the emergency department for further evaluation. Follow-up with PCP in 7-10 days or sooner if needed Patient Language: Danish Prescriptions: New azithromycin 250 mg tablet See Rx Instructions .ROUTE .COMPLEX Qty: 6 0RF Rx Instructions: For 250 mg dose pack: take 500 mg today (day 1), then 250 mg for 4 days (days 2-5) prednisone 20 mg tablet 40 mg PO DAILY 5 Days Qty: 10 0RF Rx Instructions: take with food No Action famotidine [Acid-Pep] 20 mg tablet 20 mg PO DAILY fluticasone propionate [Flonase Allergy Relief] 50 mcg/actuation spray,suspension 1 spray intranasal ONCE Rx Instructions: administer into each nostril benzonatate 200 mg capsule 200 mg PO TID PRN (Reason: cough) Qty: 30 0RF cholecalciferol (vitamin D3) 50 mcg (2,000 unit) capsule 50 mcg PO DAILY Qty: 360 0RF aspirin 81 mg Tablet,Delayed Release (Dr/Ec) 81 mg PO DAILY cranberry fruit 400 mg Capsule 400 mg PO DAILY Tabacus Initative 1.5 billion cell Capsule 1 cap PO DAILY PreserVision AREDS-2 [id number] il-ggge-rp-mg Capsule 1 tablet PO BID Glucosamine Chondroitin 550-30-1 mg Capsule 2 cap PO BID meclizine 12.5 mg Tablet 12.5 mg PO QID PRN (Reason: Dizziness) Qty: 20 0RF baclofen 10 mg tablet See Rx Instructions .ROUTE .COMPLEX Qty: 180 1RF Dose Instruction: TAKE 1 TABLET BY MOUTH EVERY NIGHT AT BEDTIME AND EVERY MORNING NEEDED FOR LEG CRAMPS Rx Instructions: TAKE 1 TABLET BY MOUTH EVERY NIGHT AT BEDTIME AND EVERY MORNING NEEDED FOR LEG CRAMPS alendronate [Fosamax] 70 mg tablet 70 mg PO WEEKLY Qty: 14 0RF Rx Instructions: please take it with water or juice in the morning once a week and upright for 1 hour after taking medication and not to lay down for at least one hour fexofenadine [Nela Allergy] 180 mg tablet 180 mg PO DAILY Qty: 90 0RF gabapentin 100 mg capsule See Rx Instructions .ROUTE .COMPLEX Qty: 540 0RF Dose Instruction: TAKE 2 CAPSULES BY MOUTH THREE TIMES DAILY Rx Instructions: TAKE 2 CAPSULES BY MOUTH THREE TIMES DAILY ipratropium bromide 21 mcg (0.03 %) spray,non-aerosol 2 spray intranasal BID PRN (Reason: allergy symptoms) Qty: 30 1RF Rx Instructions: administer into each nostril sertraline 25 mg tablet See Rx Instructions .ROUTE .COMPLEX Qty: 90 1RF Dose Instruction: TAKE 1 TABLET BY MOUTH DAILY Rx Instructions: TAKE 1 TABLET BY MOUTH DAILY pantoprazole 40 mg tablet,delayed release (DR/EC) See Rx Instructions .ROUTE .COMPLEX Qty: 90 1RF Dose Instruction: TAKE 1 TABLET BY MOUTH EVERY MORNING Rx Instructions: TAKE 1 TABLET BY MOUTH EVERY MORNING Follow-up/Referrals: Mike Flaherty MD [Primary Care Provider, Family Practice] Time of Disposition: 11:59 Quality Nicholas Coma Scale Eyes: Open Verbal: Oriented and Alert Motor: Follows Commands Nicholas Coma Total Score: 15
== END 2025-03-26 12:02 | disposition home or self-care (01) ==
PROVIDERS: Emergency Provider Registered Nurse; PCP Family Medicine
DX: J32.9 Chronic sinusitis, unspecified (principal); R05.1 Acute cough; Z87.891 Personal history of nicotine dependence; I50.9 Heart failure, unspecified; I25.2 Old myocardial infarction; H35.30 Unspecified macular degeneration; K21.9 Gastro-esophageal reflux disease without esophagitis; I51.81 Takotsubo syndrome; Z79.82 Long term (current) use of aspirin
CPT/HCPCS: 71046; 99213; G0463